=== PATIENT | male | born 1965 | race Two or more races ===

== ENCOUNTER → 2020-03-29 09:58 | Outpatient (BNVA) | payer BC, SELFPAY | PROVIDERS: PCP Internal Medicine; Referring Provider Internal Medicine; Visit Provider Internal Medicine | DX: I26.99 Other pulmonary embolism without acute cor pulmonale (principal); Z51.81 Encounter for therapeutic drug level monitoring; Z79.01 Long term (current) use of anticoagulants | CPT/HCPCS: 85610; 99211 ==

== ENCOUNTER → 2020-04-26 09:58 | Outpatient (BNVA) | payer BC, SELFPAY | PROVIDERS: PCP Internal Medicine; Visit Provider Internal Medicine | DX: I26.99 Other pulmonary embolism without acute cor pulmonale (principal); Z51.81 Encounter for therapeutic drug level monitoring; Z79.01 Long term (current) use of anticoagulants | CPT/HCPCS: 85610 ==

== ENCOUNTER → 2020-05-31 09:49 | Outpatient (BNVA) | payer BC, SELFPAY | PROVIDERS: PCP Internal Medicine; Visit Provider Internal Medicine | DX: I26.99 Other pulmonary embolism without acute cor pulmonale (principal); Z51.81 Encounter for therapeutic drug level monitoring; Z79.01 Long term (current) use of anticoagulants | CPT/HCPCS: 85610; 99211 ==

== ENCOUNTER → 2020-06-28 09:53 | Outpatient (BNVA) | payer BC, SELFPAY | PROVIDERS: PCP Internal Medicine; Visit Provider Internal Medicine | DX: I26.99 Other pulmonary embolism without acute cor pulmonale (principal); Z51.81 Encounter for therapeutic drug level monitoring; Z79.01 Long term (current) use of anticoagulants | CPT/HCPCS: 85610; 99211 ==

== ENCOUNTER → 2020-08-02 10:05 | Outpatient (BNVA) | payer BC, SELFPAY | PROVIDERS: PCP Internal Medicine; Visit Provider Internal Medicine | DX: I26.99 Other pulmonary embolism without acute cor pulmonale (principal); Z51.81 Encounter for therapeutic drug level monitoring; Z79.01 Long term (current) use of anticoagulants | CPT/HCPCS: 85610; 99211 ==

== ENCOUNTER → 2020-08-30 09:44 | Outpatient (BNVA) | payer BC, SELFPAY | PROVIDERS: PCP Internal Medicine; Visit Provider Internal Medicine | DX: I26.99 Other pulmonary embolism without acute cor pulmonale (principal); Z51.81 Encounter for therapeutic drug level monitoring; Z79.01 Long term (current) use of anticoagulants | CPT/HCPCS: 85610; 99211 ==

== ENCOUNTER → 2020-09-27 09:45 | Outpatient (BNVA) | payer BC, SELFPAY | PROVIDERS: PCP Internal Medicine; Visit Provider Internal Medicine | DX: I26.99 Other pulmonary embolism without acute cor pulmonale (principal); Z51.81 Encounter for therapeutic drug level monitoring; Z79.01 Long term (current) use of anticoagulants | CPT/HCPCS: 85610; 99211 ==

== ENCOUNTER → 2020-10-25 09:54 | Outpatient (BNVA) | payer BC, SELFPAY | PROVIDERS: PCP Internal Medicine; Visit Provider Internal Medicine | DX: I26.99 Other pulmonary embolism without acute cor pulmonale (principal); Z51.81 Encounter for therapeutic drug level monitoring; Z79.01 Long term (current) use of anticoagulants | CPT/HCPCS: 85610; 99211 ==

== ENCOUNTER → 2020-11-29 09:49 | Outpatient (BNVA) | payer BC, SELFPAY | PROVIDERS: PCP Internal Medicine; Visit Provider Internal Medicine | DX: I26.99 Other pulmonary embolism without acute cor pulmonale (principal); Z51.81 Encounter for therapeutic drug level monitoring; Z79.01 Long term (current) use of anticoagulants | CPT/HCPCS: 85610; 99211 ==

== ENCOUNTER → 2021-01-03 09:44 | Outpatient (BNVA) | payer BC, SELFPAY | PROVIDERS: PCP Internal Medicine; Visit Provider Internal Medicine | DX: I26.99 Other pulmonary embolism without acute cor pulmonale (principal); Z51.81 Encounter for therapeutic drug level monitoring; Z79.01 Long term (current) use of anticoagulants | CPT/HCPCS: 85610; 99211 ==

== ENCOUNTER → 2021-01-31 09:46 | Outpatient (BNVA) | payer BC, SELFPAY | PROVIDERS: PCP Internal Medicine; Visit Provider Internal Medicine | DX: I26.99 Other pulmonary embolism without acute cor pulmonale (principal); Z79.01 Long term (current) use of anticoagulants; Z51.81 Encounter for therapeutic drug level monitoring | CPT/HCPCS: 85610; 99211 ==

== ENCOUNTER → 2021-03-08 08:00 | Outpatient (BNVA) | payer BC, SELFPAY | PROVIDERS: PCP Internal Medicine; Visit Provider Internal Medicine | DX: I26.99 Other pulmonary embolism without acute cor pulmonale (principal); Z51.81 Encounter for therapeutic drug level monitoring; Z79.01 Long term (current) use of anticoagulants | CPT/HCPCS: 85610; 99211 ==

== ENCOUNTER → 2021-04-11 08:04 | Outpatient (BNVA) | payer BC, SELFPAY | PROVIDERS: PCP Internal Medicine; Visit Provider Internal Medicine | DX: I26.99 Other pulmonary embolism without acute cor pulmonale (principal); Z51.81 Encounter for therapeutic drug level monitoring; Z79.01 Long term (current) use of anticoagulants | CPT/HCPCS: 85610; 99211 ==

== ENCOUNTER → 2021-05-11 07:59 | Outpatient (BNVA) | payer BC, SELFPAY | PROVIDERS: PCP Internal Medicine; Visit Provider Internal Medicine | DX: I26.99 Other pulmonary embolism without acute cor pulmonale (principal); Z51.81 Encounter for therapeutic drug level monitoring; Z79.01 Long term (current) use of anticoagulants | CPT/HCPCS: 85610; 99211 ==

== ENCOUNTER → 2021-06-08 08:00 | Outpatient (BNVA) | payer BC, SELFPAY | PROVIDERS: PCP Internal Medicine; Visit Provider Internal Medicine | DX: I26.99 Other pulmonary embolism without acute cor pulmonale (principal); Z51.81 Encounter for therapeutic drug level monitoring; Z79.01 Long term (current) use of anticoagulants | CPT/HCPCS: 85610; 99211 ==

== ENCOUNTER → 2021-07-06 08:01 | Outpatient (BNVA) | payer BC, SELFPAY | PROVIDERS: PCP Internal Medicine; Visit Provider Internal Medicine | DX: I26.99 Other pulmonary embolism without acute cor pulmonale (principal); Z51.81 Encounter for therapeutic drug level monitoring; Z79.01 Long term (current) use of anticoagulants | CPT/HCPCS: 85610; 99211 ==

== ENCOUNTER → 2021-08-01 08:05 | Outpatient (BNVA) | payer BC, SELFPAY | PROVIDERS: PCP Internal Medicine; Visit Provider Internal Medicine | DX: I26.99 Other pulmonary embolism without acute cor pulmonale (principal); Z51.81 Encounter for therapeutic drug level monitoring; Z79.01 Long term (current) use of anticoagulants | CPT/HCPCS: 85610; 99211 ==

== ENCOUNTER → 2021-08-16 08:02 | Outpatient (BNVA) | payer BC, SELFPAY | PROVIDERS: PCP Internal Medicine; Visit Provider Internal Medicine | DX: I26.99 Other pulmonary embolism without acute cor pulmonale (principal); Z51.81 Encounter for therapeutic drug level monitoring; Z79.01 Long term (current) use of anticoagulants | CPT/HCPCS: 85610; 99211 ==

== ENCOUNTER → 2021-09-19 08:01 | Outpatient (BNVA) | payer BC, SELFPAY | PROVIDERS: PCP Internal Medicine; Visit Provider Internal Medicine | DX: I26.99 Other pulmonary embolism without acute cor pulmonale (principal); Z51.81 Encounter for therapeutic drug level monitoring; Z79.01 Long term (current) use of anticoagulants | CPT/HCPCS: 85610; 99211 ==

== ENCOUNTER → 2021-10-17 08:01 | Outpatient (BNVA) | payer BC, SELFPAY | PROVIDERS: PCP Internal Medicine; Visit Provider Internal Medicine | DX: I26.99 Other pulmonary embolism without acute cor pulmonale (principal); Z79.01 Long term (current) use of anticoagulants; Z51.81 Encounter for therapeutic drug level monitoring | CPT/HCPCS: 85610; 99211 ==

== ENCOUNTER → 2021-11-14 08:04 | Outpatient (BNVA) | payer BC, SELFPAY | PROVIDERS: PCP Internal Medicine; Visit Provider Internal Medicine | DX: I26.99 Other pulmonary embolism without acute cor pulmonale (principal); Z51.81 Encounter for therapeutic drug level monitoring; Z79.01 Long term (current) use of anticoagulants | CPT/HCPCS: 85610; 99211 ==

== ENCOUNTER → 2021-12-19 08:02 | Outpatient (BNVA) | payer BC, SELFPAY | PROVIDERS: PCP Internal Medicine; Visit Provider Internal Medicine | DX: I26.99 Other pulmonary embolism without acute cor pulmonale (principal); Z51.81 Encounter for therapeutic drug level monitoring; Z79.01 Long term (current) use of anticoagulants | CPT/HCPCS: 85610; 99211 ==

== ENCOUNTER → 2022-01-23 08:02 | Outpatient (BNVA) | payer BC, SELFPAY | PROVIDERS: PCP Internal Medicine; Visit Provider Internal Medicine | DX: I26.99 Other pulmonary embolism without acute cor pulmonale (principal); Z51.81 Encounter for therapeutic drug level monitoring; Z79.01 Long term (current) use of anticoagulants | CPT/HCPCS: 85610; 99211 ==

== ENCOUNTER → 2022-02-28 08:01 | Outpatient (BNVA) | payer BC, SELFPAY | PROVIDERS: PCP Internal Medicine; Visit Provider Internal Medicine | DX: I26.99 Other pulmonary embolism without acute cor pulmonale (principal); Z51.81 Encounter for therapeutic drug level monitoring; Z79.01 Long term (current) use of anticoagulants | CPT/HCPCS: 85610; 99211 ==

== ENCOUNTER → 2022-03-27 08:03 | Outpatient (BNVA) | payer BC, SELFPAY | PROVIDERS: PCP Internal Medicine; Visit Provider Internal Medicine | DX: I26.99 Other pulmonary embolism without acute cor pulmonale (principal); Z79.01 Long term (current) use of anticoagulants; Z51.81 Encounter for therapeutic drug level monitoring | CPT/HCPCS: 85610; 99211 ==

== ENCOUNTER → 2022-05-01 07:59 | Outpatient (BNVA) | payer BC, SELFPAY | PROVIDERS: PCP Internal Medicine; Visit Provider Internal Medicine | DX: I26.99 Other pulmonary embolism without acute cor pulmonale (principal); Z51.81 Encounter for therapeutic drug level monitoring; Z79.01 Long term (current) use of anticoagulants | CPT/HCPCS: 85610; 99211 ==

== ENCOUNTER → 2022-05-29 15:18 | Outpatient (BNVA) | payer BC, SELFPAY | PROVIDERS: PCP Internal Medicine; Visit Provider Internal Medicine | DX: I26.99 Other pulmonary embolism without acute cor pulmonale (principal); Z51.81 Encounter for therapeutic drug level monitoring; Z79.01 Long term (current) use of anticoagulants | CPT/HCPCS: 85610; 99211 ==

== ENCOUNTER → 2022-07-10 09:55 | Outpatient (BNVA) | payer BC, SELFPAY | PROVIDERS: PCP Internal Medicine; Visit Provider Internal Medicine | DX: I26.99 Other pulmonary embolism without acute cor pulmonale (principal); Z51.81 Encounter for therapeutic drug level monitoring; Z79.01 Long term (current) use of anticoagulants | CPT/HCPCS: 85610; 99211 ==

== ENCOUNTER → 2022-08-15 09:47 | Outpatient (BNVA) | payer BC, SELFPAY | PROVIDERS: PCP Internal Medicine; Visit Provider Internal Medicine | DX: I26.99 Other pulmonary embolism without acute cor pulmonale (principal); Z51.81 Encounter for therapeutic drug level monitoring; Z79.01 Long term (current) use of anticoagulants | CPT/HCPCS: 85610; 99211 ==

== ENCOUNTER 2022-10-16 07:44 | Outpatient (RCR) | payer BC, SELFPAY | END 2023-01-05 09:37 | disposition home or self-care (01) | LOC: HO.WCC 07:44 | PROVIDERS: PCP Internal Medicine; Visit Provider Physician Assistant | DX: L98.492 Non-pressure chronic ulcer of skin of other sites with fat layer exposed (principal); T81.31XA Disruption of external operation (surgical) wound, not elsewhere classified, initial encounter; E46 Unspecified protein-calorie malnutrition; Z93.2 Ileostomy status | CPT/HCPCS: 11042; 17250; 85610; 97602; 99212 ==

== ENCOUNTER 2022-10-20 10:21 | Outpatient (REF) | payer BC, SELFPAY ==
--- NOTE | ~2022-10-20 | FL_ITS ---
EXAMINATION: FL MODIFIED BARIUM SWALLOW CLINICAL INFORMATION: Dysphagia since recent intubation. COMPARISON: None available. TECHNIQUE: Modified barium swallow examination is performed with imaging in the lateral view and the presence of the speech pathologist using a variety of barium consistencies. The exam is performed with fluoroscopic evaluation, videofluoroscopy, and some fluoroscopic spot views. Fluoroscopy time: 1.3 minutes DAP: 0.536 Gycm2 Fluoroscopic spot images: 2 FINDINGS: There is good oral control with various consistencies. No nasopharyngeal penetration with swallowing. No laryngeal penetration or aspiration. There is some intermittent minor coating of the vallecular and piriform sinuses after swallowing with various consistencies which appears to clear on successive swallowing. No abnormal retention. See speech pathologist report for further assessment and recommendation. FL/FL barium swallow modified IMPRESSION: -No laryngeal penetration or aspiration. -See speech pathologist report for further assessment and recommendation.
--- NOTE | 2022-10-31 13:54 | MHC.SL.IMP ---
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 In late July, he had abdominal pain and eventually required emergency bowel resection. He was transferred to [facility] and had a prolonged ICU stay. He developed dysphonia and dysphagia after extubation and was given a laryngoplasty injection on 09/07. He continued to advanced his diet during admission and was discharged for recommendations of Minced and Moist Solids (L5) and Thin Liquids (L0). He reports that he has been trying some advanced solids in the interim and has not had any issues. [facility] Fall Risk Assessment Score: Oral Motor Exam Facial Symmetry: Symmetrical Oral Expression Ability: No Impairment Is patient able to manage secretions?: Yes Is patient able to produce volitional cough?: Yes Food and Liquid Trials: Oral Impairment: Lip Closure: 1=Interlabial escape; no progression to anterior tip Oral Impairment: Tongue Control During Bolus Hold: 0=Cohesive bolus between tongue to palatal seal Oral Impairment: Bolus Preparation/Mastication: 1=Slow prolonged chewing/mashing with complete re-collection Oral Impairment: Bolus Transport/Lingual Motion: 1= Delayed initiation of tongue motion Oral Impairment: Oral Residue: 1=Trace residue lining oral structures Oral Impairment:Initiation of Pharyngeal Swallow: 3=Bolus head in pyriforms Pharyngeal Impairment: Soft Palate Elevation: 0=No bolus between soft palate (SP)/pharyngeal wall (PW) Pharyngeal Impairment: Laryngeal Elevation: 1=Partial thyroid cartilage/arytenoids to epiglottic petiole movement Pharyngeal Impairment: Anterior Hyoid Excursion: 1=Partial anterior movement Pharyngeal Impairment: Epiglottic Movement: 1=Partial inversion Pharyngeal Impairment: Laryngeal Vestibular Closure:: 0=Complete: no air/contrast in laryngeal vestibule Pharyngeal Impairment: Pharyngeal Stripping Wave: 0=Present: complete Pharyngeal Impairment: Pharyngeal Contraction: Did not test Pharyngeal Impairment: Pharyngoesophageal Segment Openin=Partial distention/partial duration: partial obstruction of flow Pharyngeal Impairment: Tongue Base (TB) Retraction: 1=Trace column of contrast/air between TB and posterior PW Pharyngeal Impairment: Pharyngeal Residue: 1=Trace residue within or on pharyngeal structures Pharyngeal Impairment: Esophageal Clearance Upright Position: Did not test Impressions and Recommendations Clinical Observations: MBSImP Results: Lip closure for intraoral bolus containment resulted in interlabial escape, without progression to the anterior lip. Tongue control during bolus hold maintained a cohesive bolus held between tongue to palate seal. Bolus preparation and mastication resulted in slow, prolonged chewing/mashing but with complete re-collection. Bolus transport/lingual motion demonstrated delayed initiation of tongue motion. Oral residue was a trace, lining oral structures. Initiation of the pharyngeal swallow occurred when the bolus head was in the pyriform sinuses. Soft palate elevation resulted in no bolus between the soft palate and the pharyngeal wall. Laryngeal elevation was decreased, with partial superior movement of the thyroid cartilage/partial approximation of the arytenoids to the epiglottic petiole. Anterior hyoid excursion demonstrated partial anterior movement. Epiglottic movement resulted in partial inversion. Laryngeal vestibular closure was complete, as indicated by no air or contrast within the laryngeal vestibule at the height of the swallow. Pharyngeal stripping wave was present and complete. Pharyngeal contraction could not be determined due to logistical reasons not related to physiologic impairment. Pharyngoesophageal segment opening demonstrated partial distension/partial duration, with partial obstruction of bolus flow. Tongue base retraction allowed a trace column of contrast or air between the retracted tongue base and the posterior pharyngeal wall. Pharyngeal residue was a trace within or on pharyngeal structures. Esophageal clearance in the upright position could not be assessed due to logistical reasons not related to physiologic impairment. Oral Impairment Score: 5 Pharyngeal Impairment Score: 4 (absence of score, component 13) Esophageal Impairment Score: --- (absence of score, component 17) Laryngeal Penetration and Aspiration: Neither penetration nor aspiration was observed in today's study with Cookie, Pudding-thick, Thin. ASSESSMENT: Pt demonstrated improved swallowing efficiency on today's MBSS compared to previous studies conducted during his hospitalization. The largest area of concern at this time is pre-mature escape of the bolus to the pyriform sinuses prior to swallow initiation. Fortunately, he has many other strengths that he is able to compensate for this at this time. Pt is provided information about IDDSI Levels 6 (Soft&Bite-Sized) and 7 [id number], to help guide his decisions as to what solids he would like to return to. Pt is also concerned about the quality of his voice. He vocal quality is subjectively deemed to be with low amplitude and breath without pitch breaks, tremor, or hoarseness. He will benefit from an ENT referral to assess if there is more that can be done to improve his voice. I would also recommend Voice Therapy once a plan of care is established to help him gain maximal functional rewards. Liquid Intake Recommendation: Thin Liquid Intake Strategies: Avoid straws Dietary Recommendations: Pt provided with handouts on IDDSI Level 6 and Level 7 Medication Administration: Whole with Puree Please contact the pharmacy regarding appropriate crushable or liquid drug formulations that are available whenever modified delivery is recommended. Compensatory Strategies Recommended: Sitting Upright (90 deg) No Straw Small Bites and Sips Alternate Liquids/Solids Rate of Ingestion Change Avoid Specific Foods Supervision during eating and or drinking: Total Supervision (1:1) Recommended Treatments: Compens. Strategy Educat. Recommendation for Speech Therapy: Outpatient Speech Therapy Director Multimedia Clinician/Clinical Fellow: No Supervisory Statement: N/A Speech Language Pathologist: Ruben Simeon M.A., CCC-RN SUPPLEMENTAL
--- NOTE | 2022-11-10 10:36 | MHC.SPEECHCO ---
Pt contacted our office on 11/10 asking for an update. [employer]OTHER[employer] MANAGER recommended he see an ENT first, prior to beginning Voice Therapy. Pt stated he is seeing his PCP on 11/28/22 and will request at that time.
== END 2022-10-20 10:22 | disposition home or self-care (01) ==
LOC: HO.XRAY 10:21
PROVIDERS: PCP Internal Medicine; Visit Provider Physical Medicine & Rehabilitation
DX: K56.609 Unspecified intestinal obstruction, unspecified as to partial versus complete obstruction (principal); R13.12 Dysphagia, oropharyngeal phase; R49.0 Dysphonia
CPT/HCPCS: 74230; 92611

== ENCOUNTER → 2022-10-30 10:06 | Outpatient (BNVA) | payer BC, SELFPAY | PROVIDERS: PCP Internal Medicine; Visit Provider Internal Medicine | DX: I26.99 Other pulmonary embolism without acute cor pulmonale (principal); Z51.81 Encounter for therapeutic drug level monitoring; Z79.01 Long term (current) use of anticoagulants | CPT/HCPCS: 85610; 99211 ==

== ENCOUNTER → 2022-11-13 09:50 | Outpatient (BNVA) | payer BC, SELFPAY | PROVIDERS: PCP Internal Medicine; Visit Provider Internal Medicine | DX: Z51.81 Encounter for therapeutic drug level monitoring (principal); Z79.01 Long term (current) use of anticoagulants; I26.99 Other pulmonary embolism without acute cor pulmonale | CPT/HCPCS: 85610; 99211 ==

== ENCOUNTER → 2022-11-21 10:13 | Outpatient (BNVA) | payer BC, SELFPAY | PROVIDERS: PCP Internal Medicine; Visit Provider Internal Medicine | DX: I26.99 Other pulmonary embolism without acute cor pulmonale (principal); Z51.81 Encounter for therapeutic drug level monitoring; Z79.01 Long term (current) use of anticoagulants | CPT/HCPCS: 85610; 99211 ==

== ENCOUNTER → 2022-11-29 10:04 | Outpatient (BNVA) | payer BC, SELFPAY | PROVIDERS: PCP Internal Medicine; Visit Provider Internal Medicine | DX: Z51.81 Encounter for therapeutic drug level monitoring (principal); Z79.01 Long term (current) use of anticoagulants; I26.99 Other pulmonary embolism without acute cor pulmonale | CPT/HCPCS: 85610; 99211 ==

== ENCOUNTER → 2022-12-13 10:30 | Outpatient (BNVA) | payer BC, SELFPAY | PROVIDERS: PCP Internal Medicine; Visit Provider Internal Medicine | DX: I26.99 Other pulmonary embolism without acute cor pulmonale (principal); Z51.81 Encounter for therapeutic drug level monitoring; Z79.01 Long term (current) use of anticoagulants | CPT/HCPCS: 85610; 99211 ==

== ENCOUNTER 2023-01-01 10:06 | Outpatient (AMB) | payer BC, SELFPAY ==
--- NOTE | 2023-01-01 10:17 | MHC.OFFVISCO ---
Intake Intake Visit Reasons: Anticoagulation Allergies No Known Allergies Allergy (Verified 01/01/23 10:14) Medication List - Last Reconciled 01/01/23 by Leslie Torres RN ferrous sulfate (Iron (ferrous sulfate)) 325 mg PO DAILY multivitamin 1 tab PO DAILY vitamin B complex (B Complex-Vitamin B12 tablet) 1 tab PO DAILY warfarin 5 mg See Protocol PO DAILY Nursing Note INR: 2.8- in therapeutic range Medications and supplements reviewed No changes in health, diet, medications, or supplements, Denies any signs and symptoms of bleeding or bruising or clotting. Bleeding, bruising, clotting discussed Nutritional guidance given Dose: 7.5mg x 7 F/U INR: 3 weeks Patient verbalizes understanding of instructions given Coding Level of Care Code Est Patient Level 1 Diagnoses Current use of anticoagulant therapy Z79.01 Results AMB INR Fingerstick AMB INR Fingerstick 2.8 Last Edit by Leslie Torres RN on 01/01/23 10:18 Assessment & Plan Assessment & Plan (1) Current use of anticoagulant therapy: Code(s): Z79.01 - [facility] (current) use of anticoagulants Category: Medical
[2023-01-02 15:40] LABS: Prothrombin Time Whole Bld POC 33.1 sec (11.1-13.5); ~PT, ~INR - Anti Coag Clinic 2.8 (0.9-1.1)
== END 2023-01-01 10:22 | disposition home or self-care (01) ==
LOC: HO.ACS 10:06
PROVIDERS: PCP Internal Medicine; Visit Provider Internal Medicine
DX: Z79.01 Long term (current) use of anticoagulants (principal)

== ENCOUNTER → 2023-01-01 10:06 | Outpatient (BNVA) | payer BC, SELFPAY | PROVIDERS: PCP Internal Medicine; Visit Provider Internal Medicine | DX: Z51.81 Encounter for therapeutic drug level monitoring (principal); Z79.01 Long term (current) use of anticoagulants; I26.99 Other pulmonary embolism without acute cor pulmonale | CPT/HCPCS: 85610; 99211 ==

== ENCOUNTER 2023-01-22 10:14 | Outpatient (AMB) | payer BC, SELFPAY ==
--- NOTE | 2023-01-22 10:19 | MHC.OFFVISCO ---
Intake Intake Visit Reasons: Anticoagulation Allergies No Known Allergies Allergy (Verified 01/22/23 10:15) Medication List - Last Reconciled 01/22/23 by Leslie Torres RN ferrous sulfate (Iron (ferrous sulfate)) 325 mg PO DAILY vitamin B complex (B Complex-Vitamin B12 tablet) 1 tab PO DAILY warfarin 5 mg See Protocol PO DAILY Nursing Note INR: 2.3- in therapeutic range Medications and supplements reviewed - no longer taking mvi, taking vit d 2000u daily No changes in health, diet, medications, or supplements, Denies any signs and symptoms of bleeding or bruising or clotting. Bleeding, bruising, clotting discussed Nutritional guidance given Dose: 7.5mg x 7 F/U INR: 4 weeks Patient verbalizes understanding of instructions given Coding Level of Care Code Est Patient Level 1 Diagnoses Current use of anticoagulant therapy Z79.01 Assessment & Plan Assessment & Plan (1) Current use of anticoagulant therapy: Code(s): Z79.01 - longterm (current) use of anticoagulants Category: Medical Medications: New cholecalciferol (vitamin D3) 50 mcg PO DAILY
[2023-01-22 10:20] LABS: ~PT, ~INR - Anti Coag Clinic 2.3 (0.9-1.1)
== END 2023-01-22 10:25 | disposition home or self-care (01) ==
LOC: HO.ACS 10:14
PROVIDERS: PCP Internal Medicine; Visit Provider Internal Medicine
DX: Z79.01 Long term (current) use of anticoagulants (principal)

== ENCOUNTER → 2023-01-22 10:14 | Outpatient (BNVA) | payer BC, SELFPAY | PROVIDERS: PCP Internal Medicine; Visit Provider Internal Medicine | DX: Z79.01 Long term (current) use of anticoagulants (principal); I26.99 Other pulmonary embolism without acute cor pulmonale | CPT/HCPCS: 85610; 99211 ==

== ENCOUNTER 2023-02-19 10:28 | Outpatient (AMB) | payer BC, SELFPAY ==
--- NOTE | 2023-02-19 10:36 | MHC.OFFVISCO ---
Intake Intake Visit Reasons: Anticoagulation Allergies No Known Allergies Allergy (Verified 02/19/23 10:32) Medication List - Last Reconciled 02/19/23 by Leslie Torres RN cholecalciferol (vitamin D3) 50 mcg PO DAILY ferrous sulfate (Iron (ferrous sulfate)) 325 mg PO DAILY vitamin B complex (B Complex-Vitamin B12 tablet) 1 tab PO DAILY warfarin 5 mg See Protocol PO DAILY Nursing Note INR: 2.8- in therapeutic range Medications and supplements reviewed No changes in health, diet, medications, or supplements, Denies any signs and symptoms of bleeding or bruising or clotting. 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
[2023-02-19 10:37] LABS: Prothrombin Time Whole Bld POC 33.6 sec (11.1-13.5); ~PT, ~INR - Anti Coag Clinic 2.8 (0.9-1.1)
== END 2023-02-19 10:40 | disposition home or self-care (01) ==
LOC: HO.ACS 10:28
PROVIDERS: PCP Internal Medicine; Visit Provider Internal Medicine
DX: Z79.01 Long term (current) use of anticoagulants (principal)

== ENCOUNTER → 2023-02-19 10:28 | Outpatient (BNVA) | payer BC, SELFPAY | PROVIDERS: PCP Internal Medicine; Visit Provider Internal Medicine | DX: I26.99 Other pulmonary embolism without acute cor pulmonale (principal); Z51.81 Encounter for therapeutic drug level monitoring; Z79.01 Long term (current) use of anticoagulants | CPT/HCPCS: 85610; 99211 ==

== ENCOUNTER 2023-03-19 10:14 | Outpatient (AMB) | payer BC, SELFPAY ==
--- NOTE | 2023-03-19 10:36 | MHC.OFFVISCO ---
Intake Intake Visit Reasons: Anticoagulation Allergies No Known Allergies Allergy (Verified 03/19/23 10:32) Medication List - Last Reconciled 03/19/23 by Leslie Torres, RN cholecalciferol (vitamin D3) 50 mcg PO DAILY ferrous sulfate (Iron (ferrous sulfate)) 325 mg PO DAILY vitamin B complex (B Complex-Vitamin B12 tablet) 1 tab PO DAILY warfarin 5 mg See Protocol PO DAILY Nursing Note INR 3.4- out of therapeutic range Medications and supplements reviewed Patient status: no c.o offered, had beers recently Medications or supplements: no changes Diet: same Denies any signs and symptoms of bleeding or clotting or unusual bruising Bleeding, bruising, clotting discussed Nutritional guidance given: eat greens to lower inr Dose: already took warfarin today, take 5mg tomm then cont 7.5mg x 7 F/U INR Date : 2 weeks? recommended, pt req 3 weeks Patient verbalizing understanding of instructions given. 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
[2023-03-19 10:37] LABS: Prothrombin Time Whole Bld POC 41.3 sec (11.1-13.5); ~PT, ~INR - Anti Coag Clinic 3.4 (0.9-1.1)
== END 2023-03-19 10:42 | disposition home or self-care (01) ==
LOC: HO.ACS 10:14
PROVIDERS: PCP Internal Medicine; Visit Provider Internal Medicine
DX: Z79.01 Long term (current) use of anticoagulants (principal)

== ENCOUNTER → 2023-03-19 10:14 | Outpatient (BNVA) | payer BC, SELFPAY | PROVIDERS: PCP Internal Medicine; Visit Provider Internal Medicine | DX: I26.99 Other pulmonary embolism without acute cor pulmonale (principal); Z51.81 Encounter for therapeutic drug level monitoring; Z79.01 Long term (current) use of anticoagulants | CPT/HCPCS: 85610; 99211 ==

== ENCOUNTER 2023-04-09 10:17 | Outpatient (AMB) | payer BC, SELFPAY ==
[2023-04-09 10:30] LABS: Prothrombin Time Whole Bld POC 45.5 sec (11.1-13.5); ~PT, ~INR - Anti Coag Clinic 3.8 (0.9-1.1)
--- NOTE | 2023-04-09 10:44 | MHC.OFFVISCO ---
Intake Intake Visit Reasons: Anticoagulation Allergies No Known Allergies Allergy (Verified 04/09/23 10:24) Medication List - Last Reconciled 04/09/23 by Marybeth Bartlett, RN cholecalciferol (vitamin D3) 50 mcg PO DAILY ferrous sulfate (Iron (ferrous sulfate)) 325 mg PO DAILY vitamin B complex (B Complex-Vitamin B12 tablet) 1 tab PO DAILY warfarin 5 mg See Protocol PO DAILY Nursing Note INR 3.8 out of therapeutic range Medications and supplements reviewed Patient status: PT HAS NOT HAD USUAL AMT OF WEEKLY GREENS, WALKING DAILY, FEELING WELL, Medications or supplements: NO CHANGES Diet: GOOD Denies any signs and symptoms of bleeding or clotting or unusual bruising Bleeding, bruising, clotting discussed Nutritional guidance given: COOKED GREENS PROVIDE MORE ABSORBABLE VIT K, TO EAT COOKED GREENS TODAY AND WEEKLY Dose: ALREADY TOOK TODAY'S DOSE, DECREASE WEEKLY DOSE 5MG X 1 DAY/ 7.5MG X 6 DAYS F/U INR Date : ??3 WEEKS PER PT REQUEST, ENC IF ANY UNUSUAL BLEEDING OR BRUISING TO CALL [facility] FOR A SOONER APPT, PT AGREED Patient verbalizing understanding of instructions given. 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
== END 2023-04-09 10:49 | disposition home or self-care (01) ==
LOC: HO.ACS 10:17
PROVIDERS: PCP Internal Medicine; Visit Provider Internal Medicine
DX: Z79.01 Long term (current) use of anticoagulants (principal)

== ENCOUNTER → 2023-04-09 10:17 | Outpatient (BNVA) | payer BC, SELFPAY | PROVIDERS: PCP Internal Medicine; Visit Provider Internal Medicine | DX: I26.99 Other pulmonary embolism without acute cor pulmonale (principal); Z51.81 Encounter for therapeutic drug level monitoring; Z79.01 Long term (current) use of anticoagulants | CPT/HCPCS: 85610; 99211 ==

== ENCOUNTER 2023-05-07 10:13 | Outpatient (AMB) | payer BC, SELFPAY ==
--- NOTE | 2023-05-07 10:54 | MHC.OFFVISCO ---
Intake Intake Visit Reasons: Anticoagulation Allergies No Known Allergies Allergy (Verified 05/07/23 10:40) Medication List - Last Reconciled 05/07/23 by Marybeth Bartlett RN cholecalciferol (vitamin D3) 50 mcg PO DAILY ferrous sulfate (Iron (ferrous sulfate)) 325 mg PO DAILY vitamin B complex (B Complex-Vitamin B12 tablet) 1 tab PO DAILY warfarin 5 mg See Protocol PO DAILY Nursing Note INR: 3.4 OUT OF therapeutic range Medications and supplements reviewed * START TO DECREASED DOSE TOWARDS PREVIOUS DOSE PRIOR TO ILLNESS No changes in health, diet, medications, or supplements, Denies any signs and symptoms of bleeding or bruising or clotting. Bleeding, bruising, clotting discussed Nutritional guidance given- REVIEW FOOD LIST WEEKLY Dose: DECREASE TO 5MG X 2 DAYS/ 7.5MG X 5 DAYS F/U INR: 06/01/23 Patient verbalizes understanding of instructions given Coding Level of Care Code Est Patient Level 1 Diagnoses Current use of anticoagulant therapy Z79.01 Results AMB INR Fingerstick AMB INR Fingerstick 3.4 Last Edit by Marybeth Bartlett RN on 05/07/23 10:49 MANUAL ENTRY Assessment & Plan Assessment & Plan (1) Current use of anticoagulant therapy: Code(s): Z79.01 - snf (current) use of anticoagulants Category: Medical
[2023-05-07 11:47] LABS: Prothrombin Time Whole Bld POC 40.9 sec (11.1-13.5); ~PT, ~INR - Anti Coag Clinic 3.4 (0.9-1.1)
== END 2023-05-07 10:57 | disposition home or self-care (01) ==
LOC: HO.ACS 10:13
PROVIDERS: PCP Internal Medicine; Visit Provider Internal Medicine
DX: Z79.01 Long term (current) use of anticoagulants (principal)

== ENCOUNTER → 2023-05-07 10:13 | Outpatient (BNVA) | payer BC, SELFPAY | PROVIDERS: PCP Internal Medicine; Visit Provider Internal Medicine | DX: I26.99 Other pulmonary embolism without acute cor pulmonale (principal); Z51.81 Encounter for therapeutic drug level monitoring; Z79.01 Long term (current) use of anticoagulants | CPT/HCPCS: 85610; 99211 ==

== ENCOUNTER 2023-05-28 10:11 | Outpatient (AMB) | payer BC, SELFPAY ==
--- NOTE | 2023-05-28 10:45 | MHC.OFFVISCO ---
Intake Intake Visit Reasons: Anticoagulation Allergies No Known Allergies Allergy (Verified 05/28/23 10:31) Medication List - Last Reconciled 05/28/23 by Marybeth Bartlett RN cholecalciferol (vitamin D3) 50 mcg PO DAILY ferrous sulfate (Iron (ferrous sulfate)) 325 mg PO DAILY vitamin B complex (B Complex-Vitamin B12 tablet) 1 tab PO DAILY warfarin 5 mg See Protocol PO DAILY Nursing Note INR: 2.4 in therapeutic range Medications and supplements reviewed No changes in health, diet, medications, or supplements, Denies any signs and symptoms of bleeding or bruising or clotting. Bleeding, bruising, clotting discussed Nutritional guidance given Dose: 5MG X 2 DAYS/ 7.5MG X 5 DAYS F/U INR: 1 MONTH Patient verbalizes understanding of instructions given Coding Level of Care Code Est Patient Level 1 Diagnoses Current use of anticoagulant therapy Z79.01 Results AMB INR Fingerstick AMB INR Fingerstick 2.4 Last Edit by Marybeth Bartlett RN on 05/28/23 10:42 MANUAL ENTRY Assessment & Plan Assessment & Plan (1) Current use of anticoagulant therapy: Code(s): Z79.01 - snf (current) use of anticoagulants Category: Medical
[2023-05-28 10:46] LABS: Prothrombin Time Whole Bld POC 28.4 sec (11.1-13.5); ~PT, ~INR - Anti Coag Clinic 2.4 (0.9-1.1)
== END 2023-05-28 10:47 | disposition home or self-care (01) ==
LOC: HO.ACS 10:11
PROVIDERS: PCP Internal Medicine; Visit Provider Internal Medicine
DX: Z79.01 Long term (current) use of anticoagulants (principal)

== ENCOUNTER → 2023-05-28 10:11 | Outpatient (BNVA) | payer BC, SELFPAY | PROVIDERS: PCP Internal Medicine; Visit Provider Internal Medicine | DX: I26.99 Other pulmonary embolism without acute cor pulmonale (principal); Z51.81 Encounter for therapeutic drug level monitoring; Z79.01 Long term (current) use of anticoagulants | CPT/HCPCS: 85610; 99211 ==

== ENCOUNTER 2023-07-02 10:21 | Outpatient (AMB) | payer BC, SELFPAY ==
--- NOTE | 2023-07-02 10:58 | MHC.OFFVISCO ---
Intake Intake Visit Reasons: Anticoagulation Allergies No Known Allergies Allergy (Verified 05/28/23 10:31) Nursing Note INR: 2.7 in therapeutic range Medications and supplements reviewed No changes in health, diet, medications, or supplements, Denies any signs and symptoms of bleeding or bruising or clotting. Bleeding, bruising, clotting discussed Nutritional guidance given Dose: 5mg x 2 days/ 7.5mg x 5 days F/U INR: 1 month Patient verbalizes understanding of instructions given Coding Level of Care Code Est Patient Level 1 Diagnoses Current use of anticoagulant therapy Z79.01 Assessment & Plan Assessment & Plan (1) Current use of anticoagulant therapy: Code(s): Z79.01 - halfway (current) use of anticoagulants Category: Medical
== END 2023-07-02 10:59 | disposition home or self-care (01) ==
LOC: HO.ACS 10:21
PROVIDERS: PCP Internal Medicine; Visit Provider Internal Medicine
DX: Z79.01 Long term (current) use of anticoagulants (principal)

== ENCOUNTER → 2023-07-02 10:21 | Outpatient (BNVA) | payer BC, SELFPAY | PROVIDERS: PCP Internal Medicine; Visit Provider Internal Medicine | DX: I26.99 Other pulmonary embolism without acute cor pulmonale (principal); Z51.81 Encounter for therapeutic drug level monitoring; Z79.01 Long term (current) use of anticoagulants | CPT/HCPCS: 85610; 99211 ==

== ENCOUNTER 2023-07-31 10:01 | Outpatient (AMB) | payer BC, SELFPAY ==
[2023-07-31 10:15] LABS: Prothrombin Time Whole Bld POC 23.7 sec (11.1-13.5)
--- NOTE | 2023-07-31 10:21 | MHC.OFFVISCO ---
Intake Intake Visit Reasons: Anticoagulation Allergies No Known Allergies Allergy (Verified 07/31/23 10:10) Medication List - Last Reconciled 07/31/23 by Elba Foote, RN cholecalciferol (vitamin D3) 50 mcg PO DAILY ferrous sulfate (Iron (ferrous sulfate)) 325 mg PO DAILY vitamin B complex (B Complex-Vitamin B12 tablet) 1 tab PO DAILY warfarin 5 mg See Protocol PO DAILY Nursing Note INR: 2.0 in therapeutic range Medications and supplements reviewed Started on metamucil No changes in health, diet, or supplements, Denies any signs and symptoms of bleeding or bruising or clotting. 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
== END 2023-07-31 10:26 | disposition home or self-care (01) ==
LOC: HO.ACS 10:01
PROVIDERS: PCP Internal Medicine; Visit Provider Internal Medicine
DX: Z79.01 Long term (current) use of anticoagulants (principal)

== ENCOUNTER → 2023-07-31 10:01 | Outpatient (BNVA) | payer BC, SELFPAY | PROVIDERS: PCP Internal Medicine; Visit Provider Internal Medicine | DX: I26.99 Other pulmonary embolism without acute cor pulmonale (principal); Z51.81 Encounter for therapeutic drug level monitoring; Z79.01 Long term (current) use of anticoagulants | CPT/HCPCS: 85610; 99211 ==

== ENCOUNTER 2023-09-10 09:36 | Outpatient (AMB) | payer BC, SELFPAY ==
--- NOTE | 2023-09-10 09:44 | MHC.OFFVISCO ---
Intake Intake Visit Reasons: Anticoagulation Allergies No Known Allergies Allergy (Verified 09/10/23 09:38) Medication List - Last Reconciled 09/10/23 by Leslie Torres RN cholecalciferol (vitamin D3) 50 mcg PO DAILY ferrous sulfate (Iron (ferrous sulfate)) 325 mg PO DAILY psyllium husk (Metamucil) 2 tsp PO DAILY vitamin B complex (B Complex-Vitamin B12 tablet) 1 tab PO DAILY warfarin 5 mg See Protocol PO DAILY Nursing Note INR 3.7-?? out of therapeutic range of 2-3 Medications and supplements reviewed Patient status: no c.o offered Medications or supplements: no changes Diet: same, had more reds Denies any signs and symptoms of bleeding or clotting or unusual bruising Bleeding, bruising, clotting discussed Nutritional guidance given: eat greens to lower Dose: pt states already took warfarin today, reduce tomm to 2.5mg then cont reg , 5mg x 2, 7.5mg x 5 F/U INR Date : 2 week f/u recommended, pt ref earlier appt than 3 weeks? Patient verbalizing understanding of instructions given. 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
[2023-09-10 09:46] LABS: Prothrombin Time Whole Bld POC 44.3 sec (11.1-13.5); ~PT, ~INR - Anti Coag Clinic 3.7 (0.9-1.1)
== END 2023-09-10 09:51 | disposition home or self-care (01) ==
LOC: HO.ACS 09:36
PROVIDERS: PCP Internal Medicine; Visit Provider Internal Medicine
DX: Z79.01 Long term (current) use of anticoagulants (principal)

== ENCOUNTER → 2023-09-10 09:36 | Outpatient (BNVA) | payer BC, SELFPAY | PROVIDERS: PCP Internal Medicine; Visit Provider Internal Medicine | DX: I26.99 Other pulmonary embolism without acute cor pulmonale (principal); Z51.81 Encounter for therapeutic drug level monitoring; Z79.01 Long term (current) use of anticoagulants | CPT/HCPCS: 85610; 99211 ==

== ENCOUNTER 2023-10-01 09:41 | Outpatient (AMB) | payer BC, SELFPAY ==
[2023-10-01 09:53] LABS: Prothrombin Time Whole Bld POC 33.9 sec (11.1-13.5); ~PT, ~INR - Anti Coag Clinic 2.8 (0.9-1.1)
--- NOTE | 2023-10-01 09:56 | MHC.OFFVISCO ---
Intake Intake Visit Reasons: Anticoagulation Allergies No Known Allergies Allergy (Verified 10/01/23 09:47) Medication List - Last Reconciled 10/01/23 by Elba Siu, RN cholecalciferol (vitamin D3) 50 mcg PO DAILY ferrous sulfate (Iron (ferrous sulfate)) 325 mg PO DAILY psyllium husk (Metamucil) 2 tsp PO DAILY vitamin B complex (B Complex-Vitamin B12 tablet) 1 tab PO DAILY warfarin 5 mg See Protocol PO DAILY Nursing Note Amb to [facility] feeling well, voice is hoarse, sts from ICU stay last year, sts he went through therapy but it didn't work Medications and supplements reviewed No other changes in health, diet, medications, or supplements Denies any unusual signs and symptoms of bruising, bleeding Denies any new Chest pain, SOB, or clotting INR: 2.8 in therapeutic range Nutritional guidance given: balance greens and reds in diet Dose: continue usual dosing;5mg x 2 days and 7.5mg x 5 days F/U INR: 4 weeks, sts he will be going to 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
== END 2023-10-01 10:07 | disposition home or self-care (01) ==
LOC: HO.ACS 09:41
PROVIDERS: PCP Internal Medicine; Visit Provider Internal Medicine
DX: Z79.01 Long term (current) use of anticoagulants (principal)

== ENCOUNTER → 2023-10-01 09:41 | Outpatient (BNVA) | payer BC, SELFPAY | PROVIDERS: PCP Internal Medicine; Visit Provider Internal Medicine | DX: I26.99 Other pulmonary embolism without acute cor pulmonale (principal); Z51.81 Encounter for therapeutic drug level monitoring; Z79.01 Long term (current) use of anticoagulants | CPT/HCPCS: 85610; 99211 ==

== ENCOUNTER 2023-11-05 10:00 | Outpatient (AMB) | payer BC, SELFPAY ==
--- NOTE | 2023-11-05 10:05 | MHC.OFFVISCO ---
Intake Intake Visit Reasons: Anticoagulation Allergies No Known Allergies Allergy (Verified 11/05/23 10:00) Medication List - Last Reconciled 11/05/23 by Leslie Torres RN cholecalciferol (vitamin D3) 50 mcg PO DAILY ferrous sulfate (Iron (ferrous sulfate)) 325 mg PO DAILY psyllium husk (Metamucil) 2 tsp PO DAILY vitamin B complex (B Complex-Vitamin B12 tablet) 1 tab PO DAILY warfarin 5 mg See Protocol PO DAILY Nursing Note INR 3.5-? out of therapeutic range of 2-3 Medications and supplements reviewed Patient status: no c.o Medications or supplements: no changes Diet: same, had more reds in diet Denies any signs and symptoms of bleeding or clotting or unusual bruising Bleeding, bruising, clotting discussed Nutritional guidance given: eat greens today to lower, no reds for 2 days Dose: 2.5mg today then 5mg x 2, 7.5mg x 5 F/U INR Date : pt req 3 weeks?? Patient verbalizing understanding of instructions given. 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
[2023-11-05 10:06] LABS: Prothrombin Time Whole Bld POC 41.8 sec (11.1-13.5); ~PT, ~INR - Anti Coag Clinic 3.5 (0.9-1.1)
== END 2023-11-05 10:12 | disposition home or self-care (01) ==
LOC: HO.ACS 10:00
PROVIDERS: PCP Internal Medicine; Visit Provider Internal Medicine
DX: Z79.01 Long term (current) use of anticoagulants (principal)

== ENCOUNTER → 2023-11-05 10:00 | Outpatient (BNVA) | payer BC, SELFPAY | PROVIDERS: PCP Internal Medicine; Visit Provider Internal Medicine | DX: I26.99 Other pulmonary embolism without acute cor pulmonale (principal); Z51.81 Encounter for therapeutic drug level monitoring; Z79.01 Long term (current) use of anticoagulants | CPT/HCPCS: 85610; 99211 ==

== ENCOUNTER 2023-11-26 09:47 | Outpatient (AMB) | payer BC, SELFPAY ==
[2023-11-26 09:52] LABS: Prothrombin Time Whole Bld POC 41.5 sec (11.1-13.5); ~PT, ~INR - Anti Coag Clinic 3.5 (0.9-1.1)
--- NOTE | 2023-11-26 10:02 | MHC.OFFVISCO ---
Intake Intake Visit Reasons: Anticoagulation Allergies No Known Allergies Allergy (Verified 11/26/23 09:47) Medication List - Last Reconciled 11/26/23 by Marybeth Bartlett RN cholecalciferol (vitamin D3) 50 mcg PO DAILY ferrous sulfate (Iron (ferrous sulfate)) 325 mg PO DAILY psyllium husk (Metamucil) 2 tsp PO DAILY vitamin B complex (B Complex-Vitamin B12 tablet) 1 tab PO DAILY warfarin 5 mg See Protocol PO DAILY Nursing Note INR 3.5 out of therapeutic range Medications and supplements reviewed Patient status: USE TO TAKE BOOST POST SURGERY - NO LONGER TAKES BOOST Medications or supplements: NO CHANGES Diet: GOOD, REVIEW FOOD LIST WEEKLY Denies any signs and symptoms of bleeding or clotting or unusual bruising Bleeding, bruising, clotting discussed Nutritional guidance given: GREENS TODAY Dose: 2.5MG TODAY THEN RESUME 5MG X 3 DAYS/ 7.5MG X 4 DAYS F/U INR Date : 12/24/23 THEN LEAVING FOR [facility] X 1 MONTH?? Patient verbalizing understanding of instructions given. Coding Level of Care Code Est Patient Level 1 Diagnoses Current use of anticoagulant therapy Z79.01 Results AMB INR Fingerstick AMB INR Fingerstick 3.5 Last Edit by Marybeth Bartlett RN on 11/26/23 09:58 INTERFACING [facility] SERVICE Assessment & Plan Assessment & Plan (1) Current use of anticoagulant therapy: Code(s): Z79.01 - snf (current) use of anticoagulants Category: Medical
== END 2023-11-26 10:04 | disposition home or self-care (01) ==
LOC: HO.ACS 09:47
PROVIDERS: PCP Internal Medicine; Visit Provider Internal Medicine
DX: Z79.01 Long term (current) use of anticoagulants (principal)

== ENCOUNTER → 2023-11-26 09:47 | Outpatient (BNVA) | payer BC, SELFPAY | PROVIDERS: PCP Internal Medicine; Visit Provider Internal Medicine | DX: I26.99 Other pulmonary embolism without acute cor pulmonale (principal); Z51.81 Encounter for therapeutic drug level monitoring; Z79.01 Long term (current) use of anticoagulants | CPT/HCPCS: 85610; 99211 ==

== ENCOUNTER 2023-12-24 09:37 | Outpatient (AMB) | payer BC, SELFPAY ==
--- NOTE | 2023-12-24 09:51 | MHC.OFFVISCO ---
Intake Intake Visit Reasons: Anticoagulation Allergies No Known Allergies Allergy (Verified 12/24/23 09:48) Medication List - Last Reconciled 12/24/23 by Leslie Torres RN cholecalciferol (vitamin D3) 50 mcg PO DAILY ferrous sulfate (Iron (ferrous sulfate)) 325 mg PO DAILY psyllium husk (Metamucil) 2 tsp PO DAILY vitamin B complex (B Complex-Vitamin B12 tablet) 1 tab PO DAILY warfarin 5 mg See Protocol PO DAILY Nursing Note INR: 2.5- in therapeutic range of 2-3 Medications and supplements reviewed- no changes No changes in health, diet, medications, or supplements, Denies any signs and symptoms of bleeding or bruising or clotting. Bleeding, bruising, clotting discussed Nutritional guidance given Dose: 5mg x 3, 75mg x 4 F/U INR: pt req 01/28/24 Patient verbalizes understanding of instructions given pt traveling to [facility] in december Coding Level of Care Code Est Patient Level 1 Diagnoses Current use of anticoagulant therapy Z79.01 Results AMB INR Fingerstick AMB INR Fingerstick 2.5 Last Edit by Leslie Torres RN on 12/24/23 09:54 Assessment & Plan Assessment & Plan (1) Current use of anticoagulant therapy: Code(s): Z79.01 - senior care (current) use of anticoagulants Category: Medical
[2023-12-25 08:02] LABS: Prothrombin Time Whole Bld POC 29.5 sec (11.1-13.5); ~PT, ~INR - Anti Coag Clinic 2.5 (0.9-1.1)
== END 2023-12-24 09:58 | disposition home or self-care (01) ==
LOC: HO.ACS 09:37
PROVIDERS: PCP Internal Medicine; Visit Provider Internal Medicine
DX: Z79.01 Long term (current) use of anticoagulants (principal)

== ENCOUNTER → 2023-12-24 09:37 | Outpatient (BNVA) | payer BC, SELFPAY | PROVIDERS: PCP Internal Medicine; Visit Provider Internal Medicine | DX: I26.99 Other pulmonary embolism without acute cor pulmonale (principal); Z51.81 Encounter for therapeutic drug level monitoring; Z79.01 Long term (current) use of anticoagulants | CPT/HCPCS: 85610; 99211 ==

== ENCOUNTER 2024-01-29 09:44 | Outpatient (AMB) | payer BC, SELFPAY ==
--- NOTE | 2024-01-29 09:59 | MHC.OFFVISCO ---
Intake Intake Visit Reasons: Anticoagulation Allergies No Known Allergies Allergy (Verified 01/29/24 09:55) Medication List - Last Reconciled 01/29/24 by Leslie Torres RN cholecalciferol (vitamin D3) 50 mcg PO DAILY ferrous sulfate (Iron (ferrous sulfate)) 325 mg PO DAILY psyllium husk (Metamucil) 2 tsp PO DAILY vitamin B complex (B Complex-Vitamin B12 tablet) 1 tab PO DAILY warfarin 5 mg See Protocol PO DAILY Nursing Note INR: 2.4- in therapeutic range 2-3 Medications and supplements reviewed No changes in health, diet, medications, or supplements, Denies any signs and symptoms of bleeding or bruising or clotting. Bleeding, bruising, clotting discussed Nutritional guidance given Dose: 5mg x 3, 7.5mg x 4 F/U INR: 4 weeks Patient verbalizes understanding of instructions given Questionnaires HAS-BLED Does the patient had uncontrolled Hypertension?: No Does the patient have renal disease?: No Does the patient have liver disease?: No Does the patient have a history of stroke?: No Has the patient had major bleeding or predisposition to bleeding?: No Does the patient have labile INRs?: No Is the patient over 65 years of age?: No Is the patient on medications that gives them a predisposition to bleeding?: Yes Does the patient use alcohol?: Yes HAS-BLED Score: 2 CHADSVASC Age: <65 Gender: Male Does the patient have a history of CHF?: No Does the patient have a history of Hypertension?: No Does the patient have a history of Stroke/TIA/Thromboembolism?: Yes Does the patient have a history of Vascular Disease (prior NE, PAD or aortic plaque)?: No Does the patient have a history of Diabetes?: No CHADS VACS Score: 2 Marisa Prediction Score Rsk VTE Active Cancer: No Previous VTE, excluding superficial vein thrombosis: Yes Reduced mobility: No Already known Thrombophilic Condition: Yes With-in last month Trauma and/or Surgery: No Elderly 70 year or older: No Heart and/or Respiratory Failure: No Acute Myocardial infarction and/or Ischemic Stroke: No Acute Infection and/or Rheumatologic Disorder: No Obesity (BMI 30 or greater): No Ongoing Hormonal Treatment: No Score: 6 Marisa Score less than 4; Low Risk of VTE Marisa Score 4 or greater; High Risk of VTE Coding Level of Care Code Est Patient Level 1 Diagnoses Current use of anticoagulant therapy Z79.01 Assessment & Plan Assessment & Plan (1) Current use of anticoagulant therapy: Code(s): 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
[2024-01-29 10:00] LABS: Prothrombin Time Whole Bld POC 28.8 sec (11.1-13.5); ~PT, ~INR - Anti Coag Clinic 2.4 (0.9-1.1)
== END 2024-01-29 10:08 | disposition home or self-care (01) ==
LOC: HO.ACS 09:44
PROVIDERS: PCP Internal Medicine; Visit Provider Internal Medicine
DX: Z79.01 Long term (current) use of anticoagulants (principal)

== ENCOUNTER → 2024-01-29 09:44 | Outpatient (BNVA) | payer BC, SELFPAY | PROVIDERS: PCP Internal Medicine; Visit Provider Internal Medicine | DX: I26.99 Other pulmonary embolism without acute cor pulmonale (principal); Z51.81 Encounter for therapeutic drug level monitoring; Z79.01 Long term (current) use of anticoagulants | CPT/HCPCS: 85610; 99211 ==

== ENCOUNTER 2024-02-26 10:06 | Outpatient (AMB) | payer BC, SELFPAY ==
[2024-02-26 10:23] LABS: Prothrombin Time Whole Bld POC 28.7 sec (11.1-13.5); ~PT, ~INR - Anti Coag Clinic 2.4 (0.9-1.1)
--- NOTE | 2024-02-26 16:38 | MHC.OFFVISCO ---
Intake Intake Visit Reasons: Anticoagulation Allergies No Known Allergies Allergy (Verified 02/26/24 10:18) Medication List - Last Reconciled 02/26/24 by Elba Foote, RN cholecalciferol (vitamin D3) 50 mcg PO DAILY ferrous sulfate (Iron (ferrous sulfate)) 325 mg PO DAILY psyllium husk (Metamucil) 2 tsp PO DAILY vitamin B complex (B Complex-Vitamin B12 tablet) 1 tab PO DAILY warfarin 5 mg See Protocol PO DAILY Nursing Note INR: 2.4 in therapeutic range of 2-3 Medications and supplements reviewed No changes in health, diet, medications, or supplements, Denies any signs and symptoms of bleeding or bruising or clotting. Bleeding, bruising, clotting discussed Nutritional guidance given Dose: continue same dose of 7.5mg X 4 days and 5mg X 3 days F/U INR: 4 weeks Patient verbalizes understanding of instructions given Coding Level of Care Code Est Patient Level 1 Diagnoses Current use of anticoagulant therapy Z79.01 Assessment & Plan Assessment & Plan (1) Current use of anticoagulant therapy: Code(s): Z79.01 - emt intermediate (current) use of anticoagulants Category: Medical
== END 2024-02-26 10:44 | disposition home or self-care (01) ==
LOC: HO.ACS 10:06
PROVIDERS: PCP Internal Medicine; Visit Provider Internal Medicine
DX: Z79.01 Long term (current) use of anticoagulants (principal)

== ENCOUNTER → 2024-02-26 10:06 | Outpatient (BNVA) | payer BC, SELFPAY | PROVIDERS: PCP Internal Medicine; Visit Provider Internal Medicine | DX: I26.99 Other pulmonary embolism without acute cor pulmonale (principal); Z79.01 Long term (current) use of anticoagulants; Z51.81 Encounter for therapeutic drug level monitoring | CPT/HCPCS: 85610; 99211 ==

== ENCOUNTER 2024-03-25 13:02 | Outpatient (AMB) | payer BC, SELFPAY ==
[2024-03-25 13:06] LABS: ~PT, ~INR - Anti Coag Clinic 3.3 (0.9-1.1)
--- NOTE | 2024-03-25 13:16 | MHC.OFFVISCO ---
Intake Intake Visit Reasons: Anticoagulation Allergies No Known Allergies Allergy (Verified 03/25/24 13:02) Medication List - Last Reconciled 03/25/24 by Elba Foote, RN cholecalciferol (vitamin D3) 50 mcg PO DAILY ferrous sulfate (Iron (ferrous sulfate)) 325 mg PO DAILY psyllium husk (Metamucil) 2 tsp PO DAILY vitamin B complex (B Complex-Vitamin B12 tablet) 1 tab PO DAILY warfarin 5 mg See Protocol PO DAILY Nursing Note INR: 3.3 out of therapeutic range of 2-3 Medications and supplements reviewed No changes in health, diet, medications, or supplements, Denies any signs and symptoms of bleeding or bruising or clotting. Bleeding, bruising, clotting discussed Nutritional guidance given to have a serving of greens today. Pt states he will have brussel sprouts. 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
== END 2024-03-25 13:18 | disposition home or self-care (01) ==
LOC: HO.ACS 13:02
PROVIDERS: PCP Internal Medicine; Visit Provider Internal Medicine
DX: Z79.01 Long term (current) use of anticoagulants (principal)

== ENCOUNTER → 2024-03-25 13:02 | Outpatient (BNVA) | payer BC, SELFPAY | PROVIDERS: PCP Internal Medicine; Visit Provider Internal Medicine | DX: I26.99 Other pulmonary embolism without acute cor pulmonale (principal); Z79.01 Long term (current) use of anticoagulants; Z51.81 Encounter for therapeutic drug level monitoring | CPT/HCPCS: 85610; 99211 ==

== ENCOUNTER 2024-04-21 09:48 | Outpatient (AMB) | payer BC, SELFPAY ==
--- NOTE | 2024-04-21 09:58 | MHC.OFFVISCO ---
Intake Intake Visit Reasons: Anticoagulation Allergies No Known Allergies Allergy (Verified 04/21/24 09:54) Medication List - Last Reconciled 04/21/24 by Leslie Torres RN cholecalciferol (vitamin D3) 50 mcg PO DAILY ferrous sulfate (Iron (ferrous sulfate)) 325 mg PO DAILY psyllium husk (Metamucil) 2 tsp PO DAILY vitamin B complex (B Complex-Vitamin B12 tablet) 1 tab PO DAILY warfarin 5 mg See Protocol PO DAILY Nursing Note INR: 2.4- in therapeutic range of 2-3 Medications and supplements reviewed- no changes No changes in health, diet, medications, or supplements, Denies any signs and symptoms of bleeding or bruising or clotting. 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
[2024-04-21 09:59] LABS: Prothrombin Time Whole Bld POC 28.9 sec (11.1-13.5); ~PT, ~INR - Anti Coag Clinic 2.4 (0.9-1.1)
== END 2024-04-21 10:03 | disposition home or self-care (01) ==
LOC: HO.ACS 09:48
PROVIDERS: PCP Internal Medicine; Visit Provider Internal Medicine
DX: Z79.01 Long term (current) use of anticoagulants (principal)

== ENCOUNTER → 2024-04-21 09:48 | Outpatient (BNVA) | payer BC, SELFPAY | PROVIDERS: PCP Internal Medicine; Visit Provider Internal Medicine | DX: I26.99 Other pulmonary embolism without acute cor pulmonale (principal); Z79.01 Long term (current) use of anticoagulants; Z51.81 Encounter for therapeutic drug level monitoring | CPT/HCPCS: 85610; 99211 ==

== ENCOUNTER 2024-05-19 09:58 | Outpatient (AMB) | payer BC, SELFPAY ==
--- NOTE | 2024-05-19 10:12 | MHC.OFFVISCO ---
Intake Intake Visit Reasons: Anticoagulation Allergies No Known Allergies Allergy (Verified 04/21/24 09:54) Nursing Note INR: 3.1 ALMOST in therapeutic range Medications and supplements reviewed No changes in health, diet, medications, or supplements, Denies any signs and symptoms of bleeding or bruising or clotting. Bleeding, bruising, clotting discussed Nutritional guidance given Dose: KEEP SAME DOSE 5MG MWF/ 7.5MG X 4 DAYS F/U INR: 1 MONTH Patient verbalizes understanding of instructions given Coding Level of Care Code Est Patient Level 1 Diagnoses Current use of anticoagulant therapy Z79.01 Results AMB INR Fingerstick AMB INR Fingerstick 3.1 Last Edit by Marybeth Bartlett RN on 05/19/24 10:08 manual entr Assessment & Plan Assessment & Plan (1) Current use of anticoagulant therapy: Code(s): Z79.01 - [facility] (current) use of anticoagulants Category: Medical
[2024-05-19 11:19] LABS: Prothrombin Time Whole Bld POC 37.4 sec (11.1-13.5); ~PT, ~INR - Anti Coag Clinic 3.1 (0.9-1.1)
== END 2024-05-19 10:14 | disposition home or self-care (01) ==
LOC: HO.ACS 09:58
PROVIDERS: PCP Internal Medicine; Visit Provider Internal Medicine
DX: Z79.01 Long term (current) use of anticoagulants (principal)

== ENCOUNTER → 2024-05-19 09:58 | Outpatient (BNVA) | payer BC, SELFPAY | PROVIDERS: PCP Internal Medicine; Visit Provider Internal Medicine | DX: I26.99 Other pulmonary embolism without acute cor pulmonale (principal); Z79.01 Long term (current) use of anticoagulants; Z51.81 Encounter for therapeutic drug level monitoring | CPT/HCPCS: 85610; 99211 ==

== ENCOUNTER 2024-06-23 09:56 | Outpatient (AMB) | payer BC, SELFPAY ==
--- OUTSIDE RECORDS SUMMARY | 2024-06-23 09:59 | XMS_ITS ---
Author Organization [facility] Address [address] [place] [address] Care Team Providers Care Put In Beat Adjuster Name Role Phone KHADIJAH GIRON Primary Care Provider REASON FOR VISIT Laryngeal Surgeon Referral Encounters Encounter Location Date Provider Diagnosis [facility] [address] [place] [address] 03/27/2023 KHADIJAH GIRON Plan Of Treatment No Information Progress Notes * Conor MOREAUsDOB:1965 (57 yo M)Acc No.[id number]:03/27/2023 Patient:?Efren Moreau :1965???Age:57 Y???Sex:Male Address:[address], [place], [address] * true * Date:? Generated for Printi ng/Jarrett/eTransmitting on:?06/23/2024 09:58 AM EST
--- OUTSIDE RECORDS SUMMARY | 2024-06-23 09:59 | XMS_ITS ---
Author Organization [facility] Address [address] [place] [address] Care Team Providers Care Fire Truck Driver Name Role Phone KHADIJAH GIRON Primary Care Provider REASON FOR VISIT referral Encounters Encounter Location Date Provider Diagnosis [facility] [address] [place] [address] 03/20/2023 KHADIJAH GIRON Plan Of Treatment No Information Progress Notes * Conor BUTLERsDOB:1965 (57 yo M)Acc No.[id number]:03/20/2023 Patient:?Efren Butler :1965???Age:57 Y???Sex:Male Address:[address], [place], [address] * true * Date:? Generated for Printi ng/Fahaleyg/eTransmitting on:?06/23/2024 09:58 AM EST
--- OUTSIDE RECORDS SUMMARY | 2024-06-23 09:59 | XMS_ITS | Patient Health Record ---
Author Organization [facility] Address [address] [place] [address] Care Team Providers Care Trimmer Sawyer Name Role Phone KHADIJAH GIRON Primary Care Provider [phone] Allergies No Known Allergies Reason For Referral No Information Medications Medication SIG (Take, Route, Frequency, Duration) Notes Start Date End Date Status Warfarin Sodium 5 MG TAKE 1 TO 2 TABLETS BY MOUTH EVERY DAY for 90 Active Vitamin B 12 500 MCG 2 tablet Orally Onc e a day Active Ostomy Supplies Pouch POUCHES DX: K51.80 USE DIRECTED 03/19/2020 Active Ostomy Supplies - . DX: ULCERATIVE ILEOCOLITIS K51.80 USE DIRECTED 08/04/2016 Active Ostomy Supplies Pouch . DX: ULCERATIVE ILEOCOLITIS K51.80 USE DIRECTED 08/04/2016 Active Ferrous Sulfate 325 (65 Fe) MG 1 tablet Oral Once a day 07/11/2010 Active Rosuvastatin Calcium 20 MG 1 tablet Orally Once a day for 90 day(s) 11/30/2017 Not-Taking Vitamin D (Ergocalciferol) 1.25 MG (02935 UT) TAKE 1 CAPSULE BY MOUTH ONE TIME PER WEEK 56 for 56 Not-Taking Immunizations Vaccine Route Administration Date Status Comme nts Tdap IM Intramuscular 12/10/2014 Administered MIG_SI D-Immunizat ion Date :10Dec2014 10:20AM PPD ID Intradermal 09/18/2017 Administered PPD IM Intramuscular 04/21/2019 Administered PPD ID Intradermal 04/29/2019 Administered PPD ID Intradermal 03/22/2021 Administered Influenza (split), 3 yrs and above IM Intramuscular 03/15/2019 Administered [facility] Social History Tobacco Use: Social History Observation Description Date Details (start date - stop date) Never Smoker NA - NA Tobacco Use/Smoking Question Answer Notes Are you a nonsmoker Additional Findings: Tobacco Non-User Current no n-smoker Alcohol Screen (Audit-C) Question Answer Notes Did you have a drink contain ing alcohol in the past year? Yes How often did you have a dri nk containing alcohol in the past year? 2 to 4 times a month (2 points) How many drinks did you have on a typical day when you were drinking in the past year? 1 or 2 drinks (0 point) How often did you have 6 or more drinks on one occasion in the past year? Never (0 point) Points 2 Interpretation Positive Tobacco use other than smoking: Question Answer Notes Are you an other tobacco user? No Section Notes: 27 years . 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 BF [place] for 8 yrs Second dtr Deidra is 16 yrs Graduated from [employer] in [facility] will pay $15k and took a loan for $16K Will stay on campus. Residence Lives in [place] in own house for 11 years Has 194K mortgag Will downsize and move to be near daughters. Hobbies. Likes reading the bibles and classics Read the quran given a friend from [facility]. 27 years . 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 [place] for 8 yrs Second dtr Deidra is 16 yrs Graduated from [employer] in [place] will pay $15k and took a loan for $16K Will stay on campus. Residence Lives in [place] in own house for 11 years Has 194K mortgag Will downsize and move to be near daughters. Hobbies. Likes reading the bibles and classics Read the quran given a friend from [place]. 27 years . 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 BF [employer] for 8 yrs Second dtr Deidra is 16 yrs Graduated from [employer] in [place] will pay $15k and took a loan for $16K Will stay on campus. Residence Lives in [place] in own house for 11 years Has 194K mortgag Will downsize and move to be near daughters. Hobbies. Likes reading the bibles and classics Read the quran given a friend from [facility]. 27 years . 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 [employer] for 8 yrs Second dtr Deidra is 16 yrs Graduated from [employer] in [place] will pay $15k and took a loan for $16K Will stay on campus. Residence Lives in [place] in own house for 11 years Has 194K mortgag Will downsize and move to be near daughters. Hobbies. Likes reading the bibles and classics Read the quran given a friend from [place]. . Yeny Martin is working at [employer] in [facility] Dtr Anabelle 18 yr graduated from [employer] in [place] and going to [employer] [facility] in [place] Now teaching biology at [employer] in [place] Second dtr Deidra is 14 yrs Going to go to [employer]. 25 years . 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 [employer] Nancy for 8 yrs Second dtr Deidra is 16 yrs Graduated from [employer] in [place] [facility] will pay $15k and took a loan for $16K Will stay on campus. Residence Lives in [place] in own house for 11 years Has 194K mortgag Will downsize and move to be near daughters. Hobbies. Likes reading the bibles and classics Read the quran given a friend from [facility]. . 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 Second dtr Deidra is 11 yrs Going to go to [employer]. Sorts and good grades . 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 Second dtr Deidra is 11 yrs Going to go to [employer]. Sorts and good grades . 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 Second dtr Deidra is 11 yrs Going to go to [employer]. Sorts and good grades . 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 Second dtr Deidra is 11 yrs Going to go to [employer]. Sorts and good grades . 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 Second dtr Deidra is 11 yrs Going to go to [employer]. Sorts and good grades 27 years . 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 [place] for 8 yrs Second dtr Deidra is 16 yrs Graduated from [employer] in [place] [facility] will pay $15k and took a loan for $16K Will stay on campus. Residence Lives in [place] in own house for 11 years Has 194K mortgag Will downsize and move to be near daughters. Hobbies. Likes reading the bibles and classics Read the quran given a friend from [facility]. 27 years . 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 [place] for 8 yrs Second dtr Deidra is 16 yrs Graduated from [employer] in [place] will pay $15k and took a loan for $16K Will stay on campus. Residence Lives in [place] in own house for 11 years Has 194K mortgag Will downsize and move to be near daughters. Hobbies. Likes reading the bibles and classics Read the quran given a friend from [facility]. . Yeny Martin is working at [employer] in [facility] Dtr Anabelle 18 yr graduated from [employer] in [place] and going to [employer] in [place] Now teaching biology at [employer] in [place]. Second dtr Deidra is 14 yrs Going to go to [employer]. . is working at [employer] in [facility] Dtr Anabelle 18 yr graduated from [employer] in [place] and going to [employer] in [place] Now teaching biology at [employer] in [place]. Second dtr Deidra is 14 yrs Going to go to [employer]. . 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 Second dtr Deidra is 11 yrs Going to go to [employer]. Sorts and good grades . 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 Second dtr Deidra is 11 yrs Going to go to [employer]. Sorts and good grades . 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 Second dtr Deidra is 11 yrs Going to go to [employer]. Sorts and good grades 27 years . Met Saini at the [employer] where she was a stockbridge Yeny Martin is 49 yr is worked at [employer] in [facility] for 6 yrs Now working for a new company on Mar 28, 2021 , from home Has to go to [place] twice a month. 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 [employer] Nancy for 8 yrs Second dtr Deidra is 16 yrs Graduated from [employer] in [place] [facility] will pay $15k and took a loan for $16K Will stay on campus. Residence Lives in [place] in own house for 11 years Has 194K mortgag Will downsize and move to be near daughters. Hobbies. Likes reading the bibles and classics Read the quran given a friend from [place]. 27 years . 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 BF [place] for 8 yrs Second dtr Deidra is 16 yrs Graduated from [employer] in [place] will pay $15k and took a loan for $16K Will stay on campus. Residence Lives in [place] in own house for 11 years Has 194K mortgag Will downsize and move to be near daughters. Hobbies. Likes reading the bibles and classics Read the quran given a friend from [facility]. . 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 Second dtr Deidra is 11 yrs Going to go to [employer]. Sorts and good grades . 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 Second dtr Deidra is 11 yrs Going to go to [employer]. Sorts and good grades . 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 Second dtr Deidra is 11 yrs Going to go to [employer]. 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 Agrees to get a CT Calcium Score to assess his risk and use of statini 12/20/21 ct coronary calcium score 0 04/25/22 ascvd risk 6.2%, ct coronary risk score 0, appt with cardiology dwaine for palpitations. no other symptoms Problem Cardiac arrhythmia (385272949) Cardiac arrhythmia, unspecified (I49.9) Active confirmed Problem Gastro-esophagea l reflux disease without esophagitis (679805153) Gastro-esophagea l reflux disease without esophagitis (K21.9) Active confirmed Problem Ulcerative colitis (60975142) Ulcerative colitis, unspecified with unspecified complications (K51.919) Active confirmed Problem Hemorrhoids (83517540) Other hemorrhoids (K64.8) Active confirmed Problem Backache (223979874) Dorsalgia, unspecified (M54.9) Active confirmed Problem Long-term current use of anticoagulant (847515588) group home (current) use of anticoagulants (Z79.01) Active confirmed Started 20 year s ago. Gets INR checked at coumadin clinic at [facility] Problem Ileostomy present (275632808) Ileostomy status (Z93.2) Active confirmed 11/28/22 Has a ne w osteomy Going to [facility] for Wound Care Problem Vitamin D deficiency (71148150) Vitamin D deficiency (E55.9) Active confirmed 11/08/20 vit d low, will start ergocalciferol 50,000 units weekly for 6 months then repeat lab Problem Hyperlipidemia (37841366) Hyperlipidemia (E78.5) Active confirmed 07/13/2020- last labs show elevated cholesterol and ratio of 5.1 Father at age 76 from Cancer colon Mother at age 80 from ?VT in [place] Agrees to get a CT Calcium Score to assess his risk and use of statins 11/08/20 coronary calcium score 0, no need to start cholesterol medication, pt educated Problem 649395815 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) Active confirmed [facility] monthly Problem 24732385 Depression, major, 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) Active confirmed Problem 81843906 Ulcerative (chronic) ileocolitis (K51.80) Active confirmed s/p Total Colectomy in 2006 Sees a GI doctor Cruzito Storm in [facility] Last seen 5 years ago 08/22/21 Has functional osteomy for 16 years 12/20/21 will refer to GI in the area to be established with someone, no current issues 04/25/[address] gonzalez, has not heard yet, will call Problem 395966970 Atrophy of left kidney (N26.1) Active confirmed Malfunctional Left Kidney(atrophied ) Picked up at [facility] prior to surgery Problem 862145317 Rapid palpitations (R00.2) Active confirmed Problem 492005564 Hospital discharge follow-up (Z09) Active confirmed Problem Disability evaluation procedure (62631816) Disability examination (Z02.71) Active confirmed 10 pages forms filled Given continuous leave from 08/20/22 to 01/06/23 . I will see him before that to give clearance for return to work. ICD codes was derived from [employer] search and noted down on the forms as there was no discharge summary from [facility] and [place] Problem 86657317 Subacute frontal sinusitis (J01.10) Active confirmed 05/16/22 Will treat with Cephalexin and Medrol Nils Problem Kidney stone (51326821) Renal stones (N20.0) Active confirmed Problem Lipoma (84940714) Lipoma, unspecified site (D17.9) Active confirmed Problem 739971106964629 Left Achilles tendinitis (M76.62) Active confirmed Will refer to desktop publishing specialist Has high arches Problem 284201275 Return to work evaluation (Z76.89) Active confirmed 01/02/23 Can return to work Should rest 15 minutes after walking 2 mikes and not carry weight more than 25 lbs . Will fill out forms which I may get in the mail Problem 371251111 History of creation of ostomy (Z93.9) Active confirmed Since [address] total hemicolostomy Problem 921912450 Swallowing impaired (R13.10) Active confirmed Problem 960883107 Malnutrition following gastrointestinal surgery (K91.2) Active confirmed Problem 907177055 Vocal cord dysfunction (J38.3) Active confirmed 11/28/[address] Conroy for evaluation Problem 346698705 Protein-calorie malnutrition, mild (E44.1) Active confirmed 11/28/22 Significant weakness and weight loss after his prolonged hospitalization and bowel surgery He will need supplemetation with Ensure 2-3 cans a day [facility] will cover it Pharmacy [phone] I will send the script for 3 months supply which will be shipped to his house Plan Of Treatment Pending Test Test Name Order Date Vitamin B12 and Folate 10/19/2022 Urinalysis, Complete 10/19/2022 Lipid Panel 03/21/2021 Chem-Comprehensive 03/21/2021 Chem-Comprehensive 10/19/2022 Ultrasound : Kidneys 04/25/2022 VITAMIN B12 10/19/2022 BASIC METABOLIC PANEL (BMP) 04/25/2022 CBC 03/21/2021 CBC WITH AUTO DIFF 07/13/2020 COMPREHENSIVE METABOLIC PANEL 07/13/2020 IRON (FE) 07/13/2020 LIPID PROFILE 07/13/2020 B12 AND FOLATE PROFILE 07/13/2020 VITAMIN D, 25-HYDROXY 07/13/2020 VITAMIN D, 25-HYDROXY 03/21/2021 CC PRIMARY 08/15/2022 LIPID PANEL 10/19/2022 tsh 10/19/2022 Future Test Test Name Order Date Vitamin B12 and Folate 08/22/2021 Lipid Panel 08/22/2021 Chem-Comprehensive 08/22/2021 VITAMIN D, 25-HYDROXY 08/22/2021 Insurance Providers Payer Name Payer Address Payer Phone Subscriber Number Group Number Insured Name Patient Relationship to Insured Coverage Start Date Coverage End Date Blue [employer] and Blue [facility] [address] [place] [address] [id number] Efren Moreau Self - patient is the insured Medical (General) History Medical History History ICD Code Ulcerative Colitis s/p Total Colectomy in 2006 Sees a GI doctor Cruzito Storm in [facility] Last seen 7 years ago. No local GI Pulmonary Embolism , recurre nt. October 2002 and 2003. Has coagulopathy Saw and told type 2 defect On warfarin 37 mg a week for a long time Goes to [facility] as [facility] . Malfunctional Left Kidney(at [facility]) Picked up at [facility] prior to surgery Hx of Depression Was on Paxil for a year Stopped 2 year ago Hypertriglyceridemia Will check levels Right mid foot pain Resolved on its own . Colostomy Bag; Needs supplies given by dusty alvarado Surgical History Surgery Date(Month/Year) Total Hemicolectomy by Dr Kelsie Fernando at [facility] in [place] , december2007December 2007 Bowel reconstruction [facility] 07/30 Dafne [place] for perforated bowel Transferred to [facility] by helicopter
--- OUTSIDE RECORDS SUMMARY | 2024-06-23 09:59 | XMS_ITS ---
Author Organization [facility] Address [address] [place] [address] Care Team Providers Care Licensed Weigher Name Role Phone DEAN VAUGHN Primary Care Provider REASON FOR VISIT cpe Encounters Encounter Location Date Provider Diagnosis [facility] [address] [place] [address] 07/09/2023 DEAN VAUGHN Plan Of Treatment No Information Progress Notes * Conor MOREAUsDOB:1965 (58 yo M)Acc No.[id number]:07/09/2023 Progress Notes Patient:?Efren MOREAU Provider:?Dean Vaughn MD :1965???Age:58 Y???Sex:Male Ousmane e:07/09/2023 Address:[facility] [address], [address] [id number] Subjective: * Chief Complaints: * ???1. Cpe. * Medical History:? * Ocular Surgical History:? Objective: * Vitals:? Assessment: Plan: * Treatment: Care Plan: * Problems:? * Billing Information: * Visit Code:? * Procedure Codes:? Care Plan Details* * Electronic signature of JONN VAUGHN MD on 06/23/2024 at 09:58 AM EST Sign off status: Pending * Provider:?Dean Vaughn MD Date:?2023 Generated for Printi ng/Faxing/eTransmitting on:?06/23/2024 09:58 AM EST
--- NOTE | 2024-06-23 10:06 | MHC.OFFVISCO ---
Intake Intake Visit Reasons: Anticoagulation Allergies No Known Allergies Allergy (Verified 06/23/24 10:03) Medication List - Last Reconciled 06/23/24 by Leslie Torres RN cholecalciferol (vitamin D3) 50 mcg PO DAILY ferrous sulfate (Iron (ferrous sulfate)) 325 mg PO DAILY psyllium husk (Metamucil) 2 tsp PO DAILY vitamin B complex (B Complex-Vitamin B12 tablet) 1 tab PO DAILY warfarin 5 mg See Protocol PO DAILY Nursing Note INR 3.5-?? out of therapeutic range of 2-3 Medications and supplements reviewed- no changes Patient status: etoh / holidays Medications or supplements: no changes Diet: same Denies any signs and symptoms of bleeding or clotting or unusual bruising Bleeding, bruising, clotting discussed Nutritional guidance given: eat greens to lower, no reds for 2 days Dose: 2.5mg today only, then cont reg 5mg x 3, 7.5mg x 4 F/U INR Date : 2 weeks Patient verbalizing understanding of instructions given. Coding Level of Care Code Est Patient Level 1 Diagnoses Current use of anticoagulant therapy Z79.01 Results AMB INR Fingerstick AMB INR Fingerstick 3.5 Last Edit by Leslie Torres RN on 06/23/24 10:09 interface delay Assessment & Plan Assessment & Plan (1) Current use of anticoagulant therapy: Code(s): Z79.01 - custodial (current) use of anticoagulants Category: Medical
[2024-06-23 10:14] LABS: Prothrombin Time Whole Bld POC 41.4 sec (11.1-13.5); ~PT, ~INR - Anti Coag Clinic 3.5 (0.9-1.1)
== END 2024-06-23 10:14 | disposition home or self-care (01) ==
LOC: HO.ACS 09:56
PROVIDERS: PCP Internal Medicine; Visit Provider Internal Medicine
DX: Z79.01 Long term (current) use of anticoagulants (principal)

== ENCOUNTER → 2024-06-23 09:56 | Outpatient (BNVA) | payer BC, SELFPAY | PROVIDERS: PCP Internal Medicine; Visit Provider Internal Medicine | DX: I26.99 Other pulmonary embolism without acute cor pulmonale (principal); Z79.01 Long term (current) use of anticoagulants; Z51.81 Encounter for therapeutic drug level monitoring | CPT/HCPCS: 85610; 99211 ==

== ENCOUNTER 2024-07-07 09:21 | Outpatient (AMB) | payer BC, SELFPAY ==
--- NOTE | 2024-07-07 09:43 | MHC.OFFVISCO ---
Intake Intake Visit Reasons: Anticoagulation Allergies No Known Allergies Allergy (Verified 07/07/24 09:32) Medication List - Last Reconciled 07/07/24 by Elba Foote RN cholecalciferol (vitamin D3) 50 mcg PO DAILY ferrous sulfate (Iron (ferrous sulfate)) 325 mg PO DAILY psyllium husk (Metamucil) 2 tsp PO DAILY vitamin B complex (B Complex-Vitamin B12 tablet) 1 tab PO DAILY warfarin 5 mg See Protocol PO DAILY Nursing Note INR: 2.6 in therapeutic range of 2-3 Medications and supplements reviewed No changes in health, diet, medications, or supplements, Denies any signs and symptoms of bleeding or bruising or clotting. Bleeding, bruising, clotting discussed Nutritional guidance given Dose: 7.5mg X 4 days and 5mg X 3 days F/U INR: 4 weeks Patient verbalizes understanding of instructions given Coding Level of Care Code Est Patient Level 1 Diagnoses Current use of anticoagulant therapy Z79.01 Results AMB INR Fingerstick AMB INR Fingerstick 2.6 Last Edit by Elba Foote RN on 07/07/24 09:39 interface delay Assessment & Plan Assessment & Plan (1) Current use of anticoagulant therapy: Code(s): Z79.01 - tank terminal gauger (current) use of anticoagulants Category: Medical
[2024-07-07 09:45] LABS: Prothrombin Time Whole Bld POC 31.4 sec (11.1-13.5); ~PT, ~INR - Anti Coag Clinic 2.6 (0.9-1.1)
--- OUTSIDE RECORDS SUMMARY | 2024-07-07 10:04 | XMS_ITS ---
Author Organization [facility] Address [address] [place] [address] Care Team Providers Care Inspector Watch Train Name Role Phone KHADIJAH GIRON Primary Care Provider [phone] REASON FOR VISIT Laryngeal Surgeon Referral Encounters Encounter Location Date Provider Diagnosis [facility] [address] [place] [address] 03/27/2023 KHADIJAH GIRON Plan Of Treatment No Information Progress Notes * Conor MOREAUsDOB:1965 (57 yo M)Acc No.[id number]:03/27/2023 Patient:?Efren Moreau :1965???Age:57 Y???Sex:Male Address:[address], [place], [address] * true * Date:? Generated for Venkateshi rodolfo/Jarrett/eTransmitting on:?07/07/2024 10:04 AM EST
--- OUTSIDE RECORDS SUMMARY | 2024-07-07 10:04 | XMS_ITS ---
Author Organization [facility] Address [address] [place] [address] Care Team Providers Care Cnc Machine Programmer Name Role Phone KHADIJAH GIRON Primary Care Provider REASON FOR VISIT referral Encounters Encounter Location Date Provider Diagnosis [facility] [address] [place] [address] 03/20/2023 KHADIJAH GIRON Plan Of Treatment No Information Progress Notes * Conor BUTLERsDOB:1965 (57 yo M)Acc No.[id number]:03/20/2023 Patient:?Efren Butler :1965???Age:57 Y???Sex:Male Address:[address], [place], [address] * true * Date:? Generated for Printi ng/Jarrett/eTransmitting on:?07/07/2024 10:04 AM EST
--- OUTSIDE RECORDS SUMMARY | 2024-07-07 10:04 | XMS_ITS | Patient Health Record ---
Author Organization [facility] Address [address] [place] [address] Care Team Providers Care Hand Sander Name Role Phone KHADIJAH GIRON Primary Care Provider Allergies No Known Allergies Reason For Referral [...] 11/30/2017 Not-Taking Vitamin D (Ergocalciferol) 1.25 MG (32184 UT) TAKE 1 CAPSULE BY MOUTH ONE TIME PER WEEK 56 for 56 Not-Taking Immunizations Vaccine Route Administration Date Status Comme nts Influenza (split), 3 yrs and above IM Intramuscular 03/15/2019 Administered [facility] PPD ID Intradermal 09/18/2017 Administered PPD IM Intramuscular 04/21/2019 Administered PPD ID Intradermal 04/29/2019 Administered PPD ID Intradermal 03/22/2021 Administered Tdap IM Intramuscular 12/10/2014 Administered MIG_SI D-Immunizat ion Date :10Dec2014 10:20AM Social History Tobacco Use: Social History Observation [...] an other tobacco user? No Section Notes: . is working at [employer] Dtr Anabelle 16 yr graduated from [employer] in [place] and going to 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 Second dtr Deidra is 11 yrs Going to go to [employer]. Sorts and good grades . is working at [employer] Dtr Anabelle 16 yr graduated from [employer] in [place] and going to 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 Second dtr Deidra is 11 yrs Going to go to [employer]. Sorts and good grades . is working at [employer] Dtr Anabelle 16 yr graduated from [employer] in [place] and going to 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 Second dtr Deidra is 11 yrs Going to go to [employer]. Sorts and good grades . is working at [employer] Dtr Anabelle 16 yr graduated from [employer] in [place] and going to 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 Second dtr Deidra is 11 yrs Going to go to [employer]. Sorts and good grades . is working at [employer] in [facility] Dtr Anabelle 16 yr graduated from [employer] in [place] and going to 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 Second dtr Deidra is 11 yrs Going to go to [employer]. Sorts and good grades . 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 Second dtr Deidra is 11 yrs Going to go to [employer]. Sorts and good grades . 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 Second dtr Deidra is 14 yrs Going to go to [employer]. . 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 Second dtr Deidra is 14 yrs Going to go to [employer]. . 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 Second dtr Deidra is 14 yrs Going to go to [employer]. 27 years . Met Saini at the [employer] where she was a cherokee Yeny Martin is 49 yr is worked at [employer] in [facility] for 6 yrs Now working for a new company on Mar 28, 2021 , from home Has to go to [place] twice a month. 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 [employer] for 8 yrs Second dtr Deidra is 16 yrs Graduated from [employer] in [facility] will pay $15k and took a loan for $16K Will stay on campus. Residence Lives in [place] in own house for 11 years Has 194K mortgag Will downsize and move to be near daughters. Hobbies. Likes reading the bibles and classics Read the quran given a friend from [place]. 27 years . Met Saini at the [employer] where she was a cherokee Yeny Martin is 49 yr is worked at [employer] in [facility] for 6 yrs Now working for a new company on Mar 28, 2021 , from home Has to go to [place] twice a month. 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 BF [employer] for 8 yrs Second dtr Deidra is 16 yrs Graduated from [employer] in [facility] will pay $15k and took a loan for $16K Will stay on campus. Residence Lives in [place] in own house for 11 years Has 194K mortgag Will downsize and move to be near daughters. Hobbies. Likes reading the bibles and classics Read the quran given a friend from [facility]. 27 years . Met Yeny at the [facility] where she was a cherokee Yeny Martin is 49 yr is worked at [employer] for 6 yrs Now working for a new company on Mar 28, 2021 , from home Has to go to [place] twice a month. 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 BF [employer] for 8 yrs Second dtr Deidra is 16 yrs Graduated from [employer] in [facility] will pay $15k and took a loan for $16K Will stay on campus. Residence Lives in [place] in own house for 11 years Has 194K mortgag Will downsize and move to be near daughters. Hobbies. Likes reading the bibles and classics Read the quran given a friend from [facility]. 27 years . Met Yeny at the [facility] where she was a cherokee Yeny Martin is 49 yr is worked at [employer] in [facility] for 6 yrs Now working for a new company on Mar 28, 2021 , from home Has to go to [place] twice a month. 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 BF [employer] for 8 yrs Second dtr Deidra is 16 yrs Graduated from [employer] in [facility] will pay $15k and took a loan for $16K Will stay on campus. Residence Lives in [place] in own house for 11 years Has 194K mortgag Will downsize and move to be near daughters. Hobbies. Likes reading the bibles and classics Read the quran given a friend from [facility]. 27 years . Met Yeny at the [facility] where she was a cherokee Yeny Martin is 49 yr is worked at [employer] in [facility] for 6 yrs Now working for a new company on Mar 28, 2021 , from home Has to go to [place] twice a month. 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 BF [employer] for 8 yrs Second dtr Deidra is 16 yrs Graduated from [employer] in [facility] will pay $15k and took a loan for $16K Will stay on campus. Residence Lives in [place] in own house for 11 years Has 194K mortgag Will downsize and move to be near daughters. Hobbies. Likes reading the bibles and classics Read the quran given a friend from [facility]. 27 years . Met Yeny at the [facility] where she was a cherokee Yeny Martin is 49 yr is worked at [employer] in [facility] for 6 yrs Now working for a new company on Mar 28, 2021 , from home Has to go to [place] twice a month. 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 BF [employer] for 8 yrs Second dtr Deidra is 16 yrs Graduated from [employer] in [facility] will pay $15k and took a loan for $16K Will stay on campus. Residence Lives in [place] in own house for 11 years Has 194K mortgag Will downsize and move to be near daughters. Hobbies. Likes reading the bibles and classics Read the quran given a friend from [facility]. . 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 Second dtr Deidra is 11 yrs Going to go to [employer]. Sorts and good grades . 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 Second dtr Deidra is 11 yrs Going to go to [employer]. Sorts and good grades . 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 Second dtr Deidra is 11 yrs Going to go to [employer]. Sorts and good grades . 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 Second dtr Deidra is 11 yrs Going to go to [employer]. Sorts and good grades 27 years . Met Yeny at the [facility] [employer] [place] where she was a cherokee Yeny Martin is 49 yr is worked at [employer] in [facility] for 6 yrs Now working for a new company on Mar 28, 2021 , from home Has to go to [place] twice a month. Dtr Anabelle 21 yr graduated from [employer] in [place] and went to 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 BF [employer] for 8 yrs Second dtr Deidra is 16 yrs Graduated from [employer] in [facility] will pay $15k and took a loan for $16K Will stay on campus. Residence Lives in [place] in own house for 11 years Has 194K mortgag Will downsize and move to be near daughters. Hobbies. Likes reading the bibles and classics Read the quran given a friend from [place]. 27 years . Met Yeny at the [facility] where she was a cherokee Yeny Martin is 49 yr is worked at [employer] in [facility] for 6 yrs Now working for a new company on Mar 28, 2021 , from home Has to go to [place] twice a month. 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 BF [employer] for 8 yrs Second dtr Deidra is 16 yrs Graduated from [employer] in [facility] will pay $15k and took a loan for $16K Will stay on campus. Residence Lives in [place] in own house for 11 years Has 194K mortgag Will downsize and move to be near daughters. Hobbies. Likes reading the bibles and classics Read the quran given a friend from [place]. 27 years . Met Yeny at the [facility] [employer] [place] where she was a cherokee Yeny Martin is 49 yr is worked at [employer] in [facility] for 6 yrs Now working for a new company on Mar 28, 2021 , from home Has to go to [place] twice a month. 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 BF [employer] for 8 yrs Second dtr Deidra is 16 yrs Graduated from [employer] in [facility] will pay $15k and took a loan for $16K Will stay on campus. Residence Lives in [place] in own house for 11 years Has 194K mortgag Will downsize and move to be near daughters. Hobbies. Likes reading the bibles and classics Read the quran given a friend from [place]. . 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 Second dtr Deidra is 11 yrs Going to go to [employer]. 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 no other symptoms Problem Cardiac arrhythmia (095966241) Cardiac arrhythmia, unspecified (I49.9) Active confirmed Problem Gastro-esophagea l reflux disease without esophagitis (989841847) Gastro-esophagea l reflux disease without esophagitis (K21.9) Active confirmed Problem Ulcerative colitis (64202624) Ulcerative colitis, unspecified with unspecified complications (K51.919) Active confirmed Problem Hemorrhoids (43131020) Other hemorrhoids (K64.8) Active confirmed Problem Backache (308803625) Dorsalgia, unspecified (M54.9) Active confirmed Problem Long-term current use of anticoagulant (310080223) ocean transportation intermediary (current) use of anticoagulants (Z79.01) Active confirmed Started 20 year s ago. Gets INR checked at coumadin clinic at [facility] Problem Ileostomy present (802650642) Ileostomy status (Z93.2) Active confirmed 11/28/22 Has a ne w osteomy [facility] [place] [facility] [place] [facility] Problem Vitamin D deficiency (90179726) Vitamin D deficiency (E55.9) Active confirmed 11/08/20 vit d low, will start ergocalciferol 50,000 units weekly for 6 months then repeat lab Problem Hyperlipidemia (44146685) Hyperlipidemia (E78.5) Active confirmed 07/13/2020- last labs show elevated cholesterol and ratio of 5.1 Father at age 76 from Cancer colon Mother at age 80 from ?[employer] in [place] Agrees to get a CT Calcium Score to assess his risk and use of statins 11/08/20 coronary calcium score 0, no need to start cholesterol medication, pt educated Problem 843417774 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) Active confirmed [facility] monthly Problem 30507159 Depression, major, 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) Active confirmed Problem 75409938 Ulcerative (chronic) ileocolitis (K51.80) Active confirmed s/p Total Colectomy in 2006 Sees a GI doctor Cruzito Storm in [facility] Last seen 5 years ago 08/22/21 Has functional osteomy for 16 years 12/20/21 will refer to GI in the area to be established with someone, no current issues 04/25/[address] gonzalez, has not heard yet, will call Problem 654825452 Atrophy of left kidney (N26.1) Active confirmed Malfunctional Left Kidney(atrophied ) Picked up at [facility] prior to surgery Problem 963499773 Rapid palpitations (R00.2) Active confirmed Problem 716770581 Hospital discharge follow-up (Z09) Active confirmed Problem Disability evaluation procedure (62864617) Disability examination (Z02.71) Active confirmed 10 pages forms filled Given continuous leave from 08/20/22 to 01/06/23 . I will see him before that to give clearance for return to work. ICD codes was derived from [employer] search and noted down on the forms as there was no discharge summary from [facility] and [place] Problem 69727249 Subacute frontal sinusitis (J01.10) Active confirmed 05/16/22 Will treat with Cephalexin and Medrol Nils Problem Kidney stone (12150636) Renal stones (N20.0) Active confirmed Problem Lipoma (09367515) Lipoma, unspecified site (D17.9) Active confirmed Problem 006862502548936 Left Achilles tendinitis (M76.62) Active confirmed Will refer to apartment leasing agent Has high arches Problem 209524655 Return to work evaluation (Z76.89) Active confirmed 01/02/23 Can return to work Should rest 15 minutes after walking 2 mikes and not carry weight more than 25 lbs . Will fill out forms which I may get in the mail Problem 550969487 History of creation of ostomy (Z93.9) Active confirmed Since [address] total hemicolostomy Problem 027034541 Swallowing impaired (R13.10) Active confirmed Problem 359749267 Malnutrition following gastrointestinal surgery (K91.2) Active confirmed Problem 180688440 Vocal cord dysfunction (J38.3) Active confirmed 11/28/[address] Conroy for evaluation Problem 915042298 Protein-calorie malnutrition, mild (E44.1) Active confirmed 11/28/22 Significant weakness and weight loss after his prolonged hospitalization and bowel surgery He will need supplemetation with Ensure 2-3 cans a day Jalbum Sheree will cover it Pharmacy [phone] I will send the script for 3 [...] Coverage End Date Blue Cross and Blue [facility] [address] [place] [address] [id number] Efren Moreau Self - patient is the insured Medical (General) History Medical History History ICD Code Ulcerative Colitis s/p Total Colectomy in 2006 Sees a GI doctor Cruzito Storm in [facility] Last seen 7 years ago. No local GI Pulmonary Embolism , recurre nt. October 2002 and 2003. Has coagulopathy Saw and told type 2 defect On warfarin 37 mg a week for a long time Goes to [facility] as [facility] . Malfunctional Left Kidney(at [facility]) Picked up at [facility] prior to surgery Hx of Depression Was on Paxil for a year Stopped 2 year ago Hypertriglyceridemia Will check levels Right mid foot pain Resolved on its own . Colostomy Bag; Needs supplies given by dusty alvarado Surgical History Surgery Date(Month/Year) Total Hemicolectomy by Dr Kelsie Fernando at [facility] in [place] , december2007December 2007 Bowel reconstruction [facility] 07/30 Dafne Louis for perforated bowel [place] [facility] [place]
== END 2024-07-07 09:45 | disposition home or self-care (01) ==
LOC: HO.ACS 09:21
PROVIDERS: PCP Internal Medicine; Visit Provider Internal Medicine
DX: Z79.01 Long term (current) use of anticoagulants (principal)

== ENCOUNTER → 2024-07-07 09:21 | Outpatient (BNVA) | payer BC, SELFPAY | PROVIDERS: PCP Internal Medicine; Visit Provider Internal Medicine | DX: I26.99 Other pulmonary embolism without acute cor pulmonale (principal); Z79.01 Long term (current) use of anticoagulants; Z51.81 Encounter for therapeutic drug level monitoring | CPT/HCPCS: 85610; 99211 ==

== ENCOUNTER 2024-08-18 09:59 | Outpatient (AMB) | payer BC, SELFPAY ==
[2024-08-18 10:16] LABS: Prothrombin Time Whole Bld POC 30.6 sec (11.1-13.5); ~PT, ~INR - Anti Coag Clinic 2.5 (0.9-1.1)
--- NOTE | 2024-08-18 10:17 | MHC.OFFVISCO ---
Intake Intake Visit Reasons: Anticoagulation Allergies No Known Allergies Allergy (Verified 08/18/24 10:07) Medication List - Last Reconciled 08/18/24 by Elba Foote, RN cholecalciferol (vitamin D3) 50 mcg PO DAILY ferrous sulfate (Iron (ferrous sulfate)) 325 mg PO DAILY psyllium husk (Metamucil) 2 tsp PO DAILY vitamin B complex (B Complex-Vitamin B12 tablet) 1 tab PO DAILY warfarin 5 mg See Protocol PO DAILY Nursing Note INR: 2.5 in therapeutic range Medications and supplements reviewed No changes in health, diet, medications, or supplements, Denies any signs and symptoms of bleeding or bruising or clotting. Bleeding, bruising, clotting discussed Nutritional guidance given Dose: 7.5mg X 4 days and 5mg X 3 days F/U INR: 4 weeks Patient verbalizes understanding of instructions given Coding Level of Care Code Est Patient Level 1 Diagnoses Current use of anticoagulant therapy Z79.01 Assessment & Plan Assessment & Plan (1) Current use of anticoagulant therapy: Code(s): Z79.01 - tank terminal gauger (current) use of anticoagulants Category: Medical
--- OUTSIDE RECORDS SUMMARY | 2024-08-18 11:02 | XMS_ITS | Clinical Summary ---
Author Organization [facility] Address [address] [place] [address] Care Team Providers Care Electronic Die Maker Name Role Phone Dean Vaughn MD Primary Care Provider Social History Tobacco Use Types Packs/Day Years Used Date Smoking Tobacco: Never Assessed Sex and Gender Information Value Date Recorded Sex Assigned at Not on file Gender Identity Not on file Sexual Orientation Not on file Plan of Treatment Health Maintenance Due Date Last Done Comments Hepatitis C Virus Screening 1963 HIV Screening 1976 DTaP/Tdap/Td Vaccines (1 - Tdap) 1982 Colonoscopy 2008 Pneumococcal Vaccines 50+ (1 of 1 - PCV) 2013 Zoster (Shingles) Vaccine (1 of 2) 2013 Influenza Vaccine 01/24/2024 COVID-19 Vaccine ( - 2023-2 5 season) 2024 RSV Vaccine 60 years and old er and Patients (1 - 1-dose 75+ series) 2038 Hepatitis B Vaccines Aged Out No long er eligible based on patient's age to complete this topic Pneumococcal Vaccine: Pediat denise (0-5 Years) and At-Risk Patients (6 to 49 Years) Aged Out No longer eligible b ased on patient's age to complete this topic Care Teams Electronic Die Maker Relationship Specialty Start Date End Date Dean Vaughn MD [address] [place] [address] [place] [id number] PCP - General 08/21/22
--- OUTSIDE RECORDS SUMMARY | 2024-08-18 11:02 | XMS_ITS | Clinical Summary ---
Author Organization [facility] Address [address] [place] [address] Care Team Providers Care Qual Research Manager Name Role Phone Unavailable Primary Care Provider Unavailabl e Social History Tobacco Use Types Packs/Day Years Used Date Smoking Tobacco: Never Assessed Sex and Gender Information Value Date Recorded Sex Assigned at Not on file Gender Identity Not on file Sexual Orientation Not on file Job Start Date Occupation Industry Not on file Not on file Not on file Plan of Treatment Health Maintenance Due Date Last Done Comments Hepatitis C Screening 1965 COVID-19 Vaccine (#1) 01/06/1964 Depression Screening 1975 Preventative Health Evaluation 1981 DTap / Tdap / Td (1 - Tdap) 1982 Colon Cancer Screening (Colonoscopy) 2008 Shingrix-Zoster Vaccine (1 of 2) 2013 Influenza Vaccine (#1) 2024 RSV Adult > 60+ Yrs or Pregn ant (1 - 1-dose 75+ series) 2038 Hepatitis B Vaccines Aged Out No long er eligible based on patient's age to complete this topic Pneumococcal Vaccine Aged Out No long er eligible based on patient's age to complete this topic RSV Ped < 20 months Aged Out No longe r eligible based on patient's age to complete this topic
== END 2024-08-18 10:22 | disposition home or self-care (01) ==
LOC: HO.ACS 09:59
PROVIDERS: PCP Internal Medicine; Visit Provider Internal Medicine
DX: Z79.01 Long term (current) use of anticoagulants (principal)

== ENCOUNTER → 2024-08-18 09:59 | Outpatient (BNVA) | payer BC, SELFPAY | PROVIDERS: PCP Internal Medicine; Visit Provider Internal Medicine | DX: I26.99 Other pulmonary embolism without acute cor pulmonale (principal); Z79.01 Long term (current) use of anticoagulants; Z51.81 Encounter for therapeutic drug level monitoring | CPT/HCPCS: 85610; 99211 ==

== ENCOUNTER 2024-09-15 09:28 | Outpatient (AMB) | payer BC, SELFPAY ==
[2024-09-15 09:45] LABS: Prothrombin Time Whole Bld POC 39.3 sec (11.1-13.5); ~PT, ~INR - Anti Coag Clinic 3.3 (0.9-1.1)
--- NOTE | 2024-09-15 09:54 | MHC.OFFVISCO ---
Intake Intake Visit Reasons: Anticoagulation Allergies No Known Allergies Allergy (Verified 09/15/24 09:40) Medication List - Last Reconciled 09/15/24 by Elba Foote, RN cholecalciferol (vitamin D3) 50 mcg PO DAILY ferrous sulfate (Iron (ferrous sulfate)) 325 mg PO DAILY psyllium husk (Metamucil) 2 tsp PO DAILY vitamin B complex (B Complex-Vitamin B12 tablet) 1 tab PO DAILY warfarin 5 mg See Protocol PO DAILY Nursing Note INR: 3.3?out of therapeutic range of 2-3 Pt back from vacation and was off his usual diet Medications and supplements reviewed Patient status: feels well Medications or supplements: no change Diet: as above Denies any signs and symptoms of bleeding or clotting or unusual bruising Bleeding, bruising, clotting discussed Nutritional guidance given: to have a serving of greens today Dose: 7.5mg X 4 days and 5mg X 3 days (Mon, Wed & Fri) F/U INR Date : 5 weeks?? Patient verbalizing understanding of instructions given. Coding Level of Care Code Est Patient Level 1 Diagnoses Current use of anticoagulant therapy Z79.01 Assessment & Plan Assessment & Plan (1) Current use of anticoagulant therapy: Code(s): Z79.01 - rat exterminator (current) use of anticoagulants Category: Medical
== END 2024-09-15 09:56 | disposition home or self-care (01) ==
LOC: HO.ACS 09:28
PROVIDERS: PCP Internal Medicine; Visit Provider Internal Medicine Medical Oncology
DX: Z79.01 Long term (current) use of anticoagulants (principal)

== ENCOUNTER → 2024-09-15 09:28 | Outpatient (BNVA) | payer BC, SELFPAY | PROVIDERS: PCP Internal Medicine; Visit Provider Internal Medicine Medical Oncology | DX: I26.99 Other pulmonary embolism without acute cor pulmonale (principal); Z51.81 Encounter for therapeutic drug level monitoring; Z79.01 Long term (current) use of anticoagulants | CPT/HCPCS: 85610; 99211 ==

== ENCOUNTER 2024-10-20 09:45 | Outpatient (AMB) | payer BC, SELFPAY ==
[2024-10-20 09:53] LABS: ~PT, ~INR - Anti Coag Clinic 2.7 (0.9-1.1)
--- NOTE | 2024-10-20 10:02 | MHC.OFFVISCO ---
Intake Intake Visit Reasons: Anticoagulation Allergies No Known Allergies Allergy (Verified 10/20/24 09:47) Medication List - Last Reconciled 10/20/24 by Elba Foote, RN cholecalciferol (vitamin D3) 50 mcg PO DAILY ferrous sulfate (Iron (ferrous sulfate)) 325 mg PO DAILY psyllium husk (Metamucil) 2 tsp PO DAILY vitamin B complex (B Complex-Vitamin B12 tablet) 1 tab PO DAILY warfarin 5 mg See Protocol PO DAILY Nursing Note INR: 2.7 in therapeutic range of 2-3 Medications and supplements reviewed No changes in health, diet, medications, or supplements, Denies any signs and symptoms of bleeding or bruising or clotting. Bleeding, bruising, clotting discussed Nutritional guidance given Dose: 7,5mg X 4 days and 5mg X 3 days (M/W/F) F/U INR: 5 days Patient verbalizes understanding of instructions given Coding Level of Care Code Est Patient Level 1 Diagnoses Current use of anticoagulant therapy Z79.01 Assessment & Plan Assessment & Plan (1) Current use of anticoagulant therapy: Code(s): Z79.01 - termite helper (current) use of anticoagulants Category: Medical
--- OUTSIDE RECORDS SUMMARY | 2024-10-20 11:00 | XMS_ITS | Clinical Summary ---
Author Organization [facility] Address [address] [place] [address] Care Team Providers Care Quality Control Technician Name Role Phone Unavailable Primary Care Provider [...]
--- OUTSIDE RECORDS SUMMARY | 2024-10-20 11:00 | XMS_ITS | Clinical Summary ---
Author Organization [facility] Address [address] [place] [address] Care Team Providers Care Core Composer Machine Tender Name Role Phone Dean Vaughn MD Primary Care Provider [phone] Social History Tobacco Use Types Packs/Day Years Used Date Smoking Tobacco: Never Assessed Sex and Gender Information Value Date Recorded Sex Assigned at Not on file Legal Sex Male 10:11 PM EST Gender Identity Not on file Sexual Orientation Not on file Plan of Treatment Health Maintenance Due Date Last Done Comments Hepatitis C Virus Screening 1963 HIV Screening 1976 DTaP/Tdap/Td Vaccines (1 - Tdap) 1982 Colonoscopy 2008 Pneumococcal Vaccines 50+ (1 of 1 - PCV) 2013 Zoster (Shingles) Vaccine (1 of 2) 2013 Influenza Vaccine 01/24/2024 COVID-19 Vaccine (1 - 2023-2 5 season) 2024 RSV Vaccine 60 years and old er and Patients (1 - 1-dose 75+ series) 2038 Hepatitis B Vaccines Aged Out No long er eligible based on patient's age to complete this topic Insurance [facility] - O Care Teams Core Composer Machine Tender Relationship Specialty Start Date End Date Dean Vaughn MD [address] [place] [address] [place] [id number] PCP - General 08/21/22
== END 2024-10-20 10:09 | disposition home or self-care (01) ==
LOC: HO.ACS 09:45
PROVIDERS: PCP Internal Medicine; Visit Provider Internal Medicine Medical Oncology
DX: Z79.01 Long term (current) use of anticoagulants (principal)

== ENCOUNTER → 2024-10-20 09:45 | Outpatient (BNVA) | payer BC, SELFPAY | PROVIDERS: PCP Internal Medicine; Visit Provider Internal Medicine Medical Oncology | DX: I26.99 Other pulmonary embolism without acute cor pulmonale (principal); Z51.81 Encounter for therapeutic drug level monitoring; Z79.01 Long term (current) use of anticoagulants | CPT/HCPCS: 85610; 99211 ==

== ENCOUNTER 2024-11-24 09:47 | Outpatient (AMB) | payer BC, SELFPAY ==
[2024-11-24 09:59] LABS: Prothrombin Time Whole Bld POC 30.3 sec (11.1-13.5); ~PT, ~INR - Anti Coag Clinic 2.5 (0.9-1.1)
--- NOTE | 2024-11-24 10:08 | MHC.OFFVISCO ---
Intake Intake Visit Reasons: Anticoagulation Allergies No Known Allergies Allergy (Verified 11/24/24 09:53) Medication List - Last Reconciled 11/24/24 by Marybeth Bartlett, RN cholecalciferol (vitamin D3) 50 mcg PO DAILY ferrous sulfate (Iron (ferrous sulfate)) 325 mg PO DAILY psyllium husk (Metamucil) 2 tsp PO DAILY vitamin B complex (B Complex-Vitamin B12 tablet) 1 tab PO DAILY warfarin 5 mg See Protocol PO DAILY Nursing Note INR: 2.5 in therapeutic range Medications and supplements reviewed No changes in diet, medications, or supplements, pt has an abd hernia that is small and being monitored - no surgical intervention necessary at this time Denies any signs and symptoms of bleeding or bruising or clotting. Bleeding, bruising, clotting discussed Nutritional guidance given Dose: 5mg x 3 days/ 7.5mg x 4 days F/U INR: 1 month after return from [place] Patient verbalizes understanding of instructions given Coding Level of Care Code Est Patient Level 1 Diagnoses Current use of anticoagulant therapy Z79.01 Assessment & Plan Assessment & Plan (1) Current use of anticoagulant therapy: Code(s): Z79.01 - halfway (current) use of anticoagulants Category: Medical
--- OUTSIDE RECORDS SUMMARY | 2024-11-24 10:32 | XMS_ITS | Clinical Summary ---
Author Organization [facility] Address [address] [place] [address] Care Team Providers Care Line Maintenance Name Role Phone Unavailable Primary Care Provider [...]
== END 2024-11-24 10:11 | disposition home or self-care (01) ==
LOC: HO.ACS 09:47
PROVIDERS: PCP Internal Medicine; Visit Provider Internal Medicine Medical Oncology
DX: Z79.01 Long term (current) use of anticoagulants (principal)

== ENCOUNTER → 2024-11-24 09:47 | Outpatient (BNVA) | payer BC, SELFPAY | PROVIDERS: PCP Internal Medicine; Visit Provider Internal Medicine Medical Oncology | DX: I26.99 Other pulmonary embolism without acute cor pulmonale (principal); Z79.01 Long term (current) use of anticoagulants; Z51.81 Encounter for therapeutic drug level monitoring | CPT/HCPCS: 85610; 99211 ==

== ENCOUNTER 2025-01-12 09:35 | Outpatient (REF) | payer BC, SELFPAY ==
[2025-01-12 10:16] LABS: INTERNATIONAL NORM RATIO 4.3 (0.9-1.1); Prothrombin Time 49.3 SEC (10.9-12.4)
== END 2025-01-12 09:36 | disposition home or self-care (01) ==
LOC: HO.LAB 09:35
PROVIDERS: PCP Internal Medicine; Visit Provider Internal Medicine Medical Oncology
DX: Z51.81 Encounter for therapeutic drug level monitoring (principal); Z79.01 Long term (current) use of anticoagulants
CPT/HCPCS: 36415; 85610; 99212

== ENCOUNTER 2025-01-12 09:35 | Outpatient (AMB) | payer BC, SELFPAY ==
[2025-01-12 09:51] LABS: Prothrombin Time Whole Bld POC 63.0 sec (11.1-13.5); ~PT, ~INR - Anti Coag Clinic 5.3 (0.9-1.1)
--- NOTE | 2025-01-12 10:01 | MHC.OFFVISCO ---
Intake Intake Visit Reasons: Anticoagulation Allergies No Known Allergies Allergy (Verified 01/12/25 09:44) Medication List - Last Reconciled 01/12/25 by Elba Foote, RN cholecalciferol (vitamin D3) 50 mcg PO DAILY ferrous sulfate (Iron (ferrous sulfate)) 325 mg PO DAILY psyllium husk (Metamucil) 2 tsp PO DAILY vitamin B complex (B Complex-Vitamin B12 tablet) 1 tab PO DAILY warfarin 5 mg See Protocol PO DAILY Nursing Note INR: 5.3 by POC?out of therapeutic range of 2-3 Pt sent to lab for venous draw verification Lab results: 4.3 Medications and supplements reviewed Patient status: feels well, just came back from a vacation to [facility]. Pt states he did have some wine out of his usual consumption. Medications or supplements: no changes Diet: a little different with his travels overseas. Denies any signs and symptoms of bleeding or clotting or unusual bruising Bleeding, bruising, clotting discussed. Pt aware to watch for blood in urine or dark stools. He knows he should go to ER for Ct scan if he hits his head. Nutritional guidance given: to have a serving of broccoli or spinach or another green vegetable as discussed. Food list reviewed. Dose: hold today's dose of 5mg and decrease tomorrow's dose to 5mg (usual 7.5mg) then follow usual dose of 7.5mg X 4 days and 5mg X 3 days (M/W/F) F/U INR Date: 1 week Patient verbalizing understanding of instructions given. 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
--- OUTSIDE RECORDS SUMMARY | 2025-01-12 10:09 | XMS_ITS | Clinical Summary ---
Author Organization [facility] Address [address] [place] [address] Care Team Providers Care Grease Worker Name Role Phone Unavailable Primary Care Provider [...] (1 of 2) 2013 Influenza Vaccine (#1) 2025 RSV Adult > 60+ Yrs or Pregn [...]
--- OUTSIDE RECORDS SUMMARY | 2025-01-12 10:09 | XMS_ITS | Patient Health Record ---
Author Organization [facility] Address [address] [place] [address] Care Team Providers Care Framing Consultant Name Role Phone Dean Vaughn Primary Care Provider Unavailabl e Black, Lala Unavailable [phone] Reason For Referral No Information Medications Medication SIG (Take, Route, Frequency, Duration) Notes Start Date End Date Status Night Splint AFO - L1930 as directed 04/03/2017 Active Iron Active Warfarin Sodium Acti ve Multivitamin Active Social History Tobacco Use: Social History Observation Description Date Details (start date - stop date) Never Smoker NA - NA Tobacco Use/Smoking Question Answer Notes Are you a: nonsmoker Additional Findings: Tobacco Non-User Current no n-smoker Alcohol Screen Question Answer Notes Did you have a drink containing alcohol in the p ast year? Yes Points 0 Interpretation Negative Tobacco use other than smoking: Question Answer Notes Are you an other tobacco user? 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) Active confirmed Problem Cavus deformity (1082583) Cavus deformity (Q66.7) Active confirmed Plan Of Treatment Pending Test Test Name Order Date X ray : Foot, left 3V 04/03/2017 Insurance Providers Payer Name Payer Address Payer Phone Subscriber Number Group Number Insured Name Patient Relationship to Insured Coverage Start Date Coverage End Date [facility] [address] [place] [address] [phone] [id number] Efren Matute Self - patient is the insured Medical (General) History Medical History History ICD Code Chron's/ Colitis Chicken pox Surgical History Surgery Date(Month/Year) Coloplast- Stoma placement 12/2007
--- OUTSIDE RECORDS SUMMARY | 2025-01-12 10:09 | XMS_ITS | Clinical Summary ---
Author Organization [facility] Address [address] [place] [address] Care Team Providers Care Toll Service Observer Name Role Phone Dean Vaughn MD Primary Care Provider [phone] Social History Tobacco Use Types Packs/Day Years [...] Zoster (Shingles) Vaccine (1 of 2) 2013 COVID-19 Vaccine ( - 2023-2 5 season) 2024 Influenza Vaccine 01/23/2025 RSV Vaccine 60 years and old er and Patients (1 - 1-dose 75+ series) 2038 Hepatitis B Vaccines Aged Out No long er eligible based on patient's age to complete this topic Insurance [facility] - O Care Teams Toll Service Observer Relationship Specialty Start Date End Date Dean Vaughn MD [address] [place] [address] [place] [id number] PCP - General 08/21/22
--- OUTSIDE RECORDS SUMMARY | 2025-01-12 10:09 | XMS_ITS | Clinical Summary ---
Author Organization [facility] Address [address] [place] [address] Phone Care Team Providers Care Briquette Machine Operator Helper Name Role Phone Marcellus Austin MD Primary Care Provider [phone] Marcellus Austin MD Unavailable Allergies No known active allergies Medications b complex vitamins capsule Take 1 capsule by mouth. Active iron 18 mg Tab Take 18 mg by mouth. Active cholecalciferol , vitamin D3, (VITAMIN D3 ORAL) Take by mouth. Active warfarin (COUMADIN) 5 MG tabletIndicatio ns:Thrombophili a Take 1 tablet (5 mg total) by mouth daily. Continue to titrate dose to achieve INR of 2.0-3.0. 90 tablet 3 03/31/2024 Active Active Problems Problem Noted Date Diagnosed Date Gross hematuria 04/28/2024 Assessment & Plan (04/28/2024 10:54 AM EST): Exam is negative for acute pathology. Will obtain a urine sediment today and send the patient for ultrasound evaluation for nephrolithiasis and bladder stones. That is nonurgent given paucity of symptoms. Thrombophilia 04/28/2024 Routine general medical exam ination at a health care facility 03/31/2024 Assessment & Plan (03/31/2024 9:29 AM EDT): Exam positive for right sided cerumen impaction, advised the patient to get a spiral shaped clearing device that sold at the pharmacy to remove the bulk of the wax and then insert 5 drops of hydroperoxide and let sit for about 20 minutes. The left ear is fine. The rest of the exam was without pathology. He has a little bit of acne on his back. Last time we checked his cholesterol was a little bit elevated but he was not fasting and it came back. Will check fasting labs today a lipid profile and electrolyte panel given the ileostomy. Went over the other labs from September and we can repeat labs on his physical next year. The rest of his exam is unremarkable, the area around the ileostomy nontender. He is not currently seeing a specialist. The INRs he is doing through the Coumadin clinic. His INRs are stable. I filled out some paperwork for [facility] elderly care that certifies that he is able to take care of of household members that are under the protection of the [facility]. S/P ileostomy 09/24/2023 Assessment & Plan (09/24/2023 3:58 PM EDT): This is a 45-minute establish care and follow-up for ileostomy. I am okay with providing the patient his medical supplies for the ileostomy. [facility] [employer] ileostomy stoma pouches SANJUANITA [id number] Quarter inch-2-1/2 inches 19-64 mm 1 box/month with 20 pack inside them. Also [employer] by [facility] 2 ounces to tubes per month equals 4 ounces. 25 minutes of ipdy-cp-uvye time and 20 minutes of chart review. 45-minute visit. 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 Neuro: # pain - tylenol PRN #Insomnia - Seroquel standing and prn nightly #left tongue deviation: initially noted 09/04 + subtle right pronation (no drift) - neuro consulted, f/u recs - MRI brain/ MRA head and neck ordered - TSH, ESR, CRP, HgA1c and lipid panel ordered HENT - ongoing dysphonia (per spouse, pt is a soft spoken person at baseline and normally has hoarse voice) - laryngeal service consulted 09/04. 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 Findings concerning for iatrogenic tear within the SVC wall during contrast injection through central line. No hemopericardium on immediate post injection images. - Line removed without complication on 08/30 #afib RVR --now SR - initially developed Afib iso multipressor shock - cardiology consulted - s/p amio gtt - cont PO amio 200mg qd - planned for total 4 weeks (end 09/22) HFrEF - Per previous cards recs: should be started on GDMT once stable from the surgical standpoint GI: # bowel perforation # s/p emergent laparotomy for incarcerated parastomal hernia 08/21 @ [facility] # s/p emergent repeat exploratory laparotomy 08/21 # s/p OR 08/24 for partial closure. Final closure: 08/26/22 - ileostomy - on imodium and metamucil - s/p IR drainage of perihepatic collection drain placement - Patient will return to IR approximately 3 weeks after discharge for CT and drain injection #Nutrition - TF at goal 50cc/hr - SECURITY DELIVERY SPECIALIST following: FEES performed 09/04, recommend to stay NPO but ok for ice chips with supervision Renal: - gamez - FWB: 200ml q4h Heme: #Hx PE, heterozygous factor 2 mutation: on coumadin as outpatient, has IVC filter #Possible LAE clot - stop heparin gtt today --- 09/05 start therapeutic lovenox ID: # bowel perforation - s/p zosyn from OSH (08/21) - s/p ceftriaxone (08/24- 08/25) - s/p vanc (08/21 - 08/24), (09/01 -09/02) - cefepime(08/21 - 08/24) (08/25- ) - metronidazole (08/21 - ) - fluconazole (08/21 - ) - fever: f/u cultures from 09/04 Endocrine: - RISS ? Dispo: PT recommending inpatient rehab ----- not medically ready for discharge Code Status: Full Code Assessment & Plan (09/05/2022 3:05 PM EDT): A/P: 57 yo M with PMH of heterozygous mutation for factor II, multiple PE (2005, 2006) s/p IVC filter, ulcerative colitis s/p total colectomy with permanent right-sided end ileostomy (done about 15 years ago at [facility]) admitted to OSH with worsening abdominal pain, a blocked stoma , and bloating found to have lg pneumoperitoneum s/p laparotomy, extensive lysis of adhesions, takedown of incarcerated small bowel in parastomal hernia, two-layer primary repair of small bowel perforation, repair of iatrogenic small bowel injury, re-siting of end ileostomy to RUQ. Neuro: # pain - tylenol PRN #Insomnia - Seroquel standing and prn nightly #left tongue deviation: initially noted 09/04 + subtle right pronation (no drift) - neuro consulted, f/u recs - MRI brain/ MRA head and neck ordered - TSH, ESR, CRP, HgA1c and lipid panel ordered HENT - ongoing dysphonia (per spouse, pt is a soft spoken person at baseline and normally has hoarse voice) - laryngeal service consulted 09/04. 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 Findings concerning for iatrogenic tear within the SVC wall during contrast injection through central line. No hemopericardium on immediate post injection images. - Line removed without complication on 08/30 #afib RVR --now SR - initially developed Afib iso multipressor shock - cardiology consulted - s/p amio gtt - cont PO amio 200mg qd - planned for total 4 weeks (end 09/22) HFrEF - Per previous cards recs: should be started on GDMT once stable from the surgical standpoint GI: # bowel perforation # s/p emergent laparotomy for incarcerated parastomal hernia 08/21 @ [facility] # s/p emergent repeat exploratory laparotomy 08/21 # s/p OR 08/24 for partial closure. Final closure: 08/26/22 - ileostomy - on imodium and metamucil - s/p IR drainage of perihepatic collection drain placement - Patient will return to IR approximately 3 weeks after discharge for CT and drain injection #Nutrition - TF at goal 50cc/hr - SECURITY DELIVERY SPECIALIST following: FEES performed 09/04, recommend to stay NPO but ok for ice chips with supervision Renal: - gamez - FWB: 200ml q4h Heme: #Hx PE, heterozygous factor 2 mutation: on coumadin as outpatient, has IVC filter #Possible LAE clot - stop heparin gtt today --- 09/05 start therapeutic lovenox ID: # bowel perforation - s/p zosyn from OSH (08/21) - s/p ceftriaxone (08/24- 08/25) - s/p vanc (08/21 - 08/24), (09/01 -09/02) - cefepime(08/21 - 08/24) (08/25- ) - metronidazole (08/21 - ) - fluconazole (08/21 - ) - fever: f/u cultures from 09/04 Endocrine: - RISS ? Dispo: PT recommending inpatient rehab ----- not medically ready for discharge Code Status: Full Code Encounters Date Type Department Care Team Description 11/03/2024 1:00 PM EDT Office Visit [facility] [address], [address] [place] [id number] Carmine Perez MBBS Ventral hernia without obstruction or gangrene (Primary Dx) from Last 3 Months Immunizations Immunization Administration Dates Next Due Influenza Quadrivalent MDCK Preservative Free IM 03/15/2019,04/17/2018 Influenza Quadrivalent Prese rvative Free IM 10/12/2022(Deferred: Patient Refused) PPD Test 03/22/2021, 9,04/21/2019,09/18 Pneumococcal polysaccharide PPSV23 10/23/2005 Tdap 12/10/2014 Social History Tobacco Use Types Packs/Day Years Used Date Smoking Tobacco: Never Smokeless Tobacco: Never Tobacco Cessation:Counseling Given: Not Answered Alcohol Use Standard Drinks/Week Comments Yes 2 (1 standard drink = 0.6 oz pur e alcohol) 1-2 drinks, 2-3 x week Child or Family Care Answer Date Record ed Do you have problems with on e of the following making it difficult for you to work, study, or receive health care? No 09/23/2023 Education Answer Date Recorded Are you interested in help w ith more adult education (for example, completing high school, GED, job training, learning the [place] language, technical skills, or developing parenting skills)? No 09/23/2023 Are you concerned about learning? Not on file 09/23/2023 No 09/23/2023 Yes 09/23/2023 Food Answer Date Recorded Within the past 6 months we worried whether our food would run out before we got money to buy more. Never True 09/23/2023 Within the past 6 months the food we bought just didn't last and we didn't have enough money to get more. Never True Residential Stability Answer Date Recor ded What is your housing situation today? I have román sing 09/23/2023 How many times have you move d in the past 12 months? Zero (I did not move) 09/23/2023 Paying for Meds Answer Date Recorded Do you have trouble paying for medicines? No 09/23/2023 Paying Utility Bills Answer Date Record ed Do you have trouble paying your heating or elect ricity bill? No 09/23/2023 Transportation Answer Date Recorded Has the lack of transportati on kept you from medical appointments or from getting medications? No 09/23/2023 Digital Access Answer Date Recorded No 09/23/2023 Yes 09/23/2023 Do you have reliable internet access at home? Ye s 09/23/2023 Do you have a device (e.g., phone, tablet, computer) with a working camera? Yes 09/23/2023 Intimate Partner Violence Answer Date R ecorded Denied Basic Needs Not on file 03/30/2024 In the past 12 months have y ou been in a relationship with a person who hurts, threatens, or tries to control you? No 03/30/2024 Worried food would run out Not on file 03/30 In the past 12 months have y ou been in a relationship with a person who hurts, threatens, or tries to control you? No 03/30/2024 Sex and Gender Information Value Date Recorded Sex Assigned at Male 07/23/2023 1:54 PM EST Legal Sex Male 9:43 PM EDT Gender Identity Male 07/23/2023 1:54 PM EST Sexual Orientation Straight 07/23/2023 1: 54 PM EST Last Filed Vital Signs Vital Sign Reading Time Taken Comments Blood Pressure 124/87 11/03/2024 12:44 PM EDT Pulse 79 11/03/2024 12:44 PM EDT Temperature 36.6 C (97.9 F) 11/03/2024 12:44 PM EDT Respiratory Rate 18 11/03/2024 12:44 PM EDT Oxygen Saturation 98% 11/03/2024 12:44 PM EDT Inhaled Oxygen Concentration 40% 10/08/2022 1 :00 AM EDT Weight 94 kg (207 lb 3.2 oz) 11/03/2024 12:44 PM EDT Height 185.4 cm (6' 1 ) 11/03/2024 12:44 PM EDT Body Mass Index 27.34 11/03/2024 12:44 PM EDT Plan of Treatment Upcoming Encounters Date Type Department Care Team (Late st Contact Info) Description 01/28/2025 12:45 PM EDT Office Visit [facility] [address], [address] [place] [address] Carmine Perez MBBS [address] [place] [phone] [place] [phone] 04/13/2025 9:00 AM EDT Office Visit [facility] [address] [place] [address] Marcellus Austin MD [address] [place] [address] [email or web address] Health Maintenance Due Date Last Done Comments COLOGUARD 2008 COLONOSCOPY 2008 COLORECTAL CANCER SCREENING 2008 FIT TEST 2008 FOBT 2008 SIGMOIDOSCOPY 2008 VIRTUAL COLONOSCOPY 2008 PNEUMOCOCCAL VACCINES (50+ years) (2 of 2 - PCV) 2013 10/23/2005 ZOSTER VACCINES (1 of 2) 2013 COVID-19 VACCINE (3 - 2023-2 5 season) 2024 06/02/2021, 11/11/2020 Adult Td,Tdap Booster 12/10/2024 12/10/2014 DEPRESSION SCREENING 03/30/2025 03/30/2024 SCREENING FOR DIABETES 10/08/2026 , 10/11/2022 LIPID PANEL 03/31/2029 03/31/2024, 10/08/2023, 09/05/2022 RSV VACCINE (1 - 1-dose 75+ series) 2038 HEPATITIS C SCREENING Completed 10/08/2023 HIV ONE-TIME SCREENING (18-6 5 YEARS) Completed 10/08/2023 SMOKING STATUS SCREENING (On ce After 26 Yrs) Completed 11/03/2024 HEPATITIS A VACCINES Aged Out No long er eligible based on patient's age to complete this topic HIB VACCINES Aged Out No longer eligi ble based on patient's age to complete this topic MENINGOCOCCAL VACCINES (ACWY) Aged Out No longer eligible based on patient's age to complete this topic MENINGOCOCCAL VACCINES (B) Aged Out N o longer eligible based on patient's age to complete this topic Medical Devices Implanted Type Area Yarn Mercerizer Operator Helper Device Identifier Shelf Expiration Date Model / Serial / Lot Ivc Filter Description:Gonzales Saeed ble IVC filter 01/07/07 - in Test Director - Conditional to 1.5T, Normal Mode - [id number] 09/08/22 Procedures Procedure Name Priority Date/Time Associated Diagnosis Comments LIPID PANEL Routine 03/31/2024 10:42 AM EDT Routine general medical examination at a health care facility HEPATITIS C ANTIBODY, QUALITATIVE Routine 10/08/2023 8:55 AM EDT Need for hepatitis C screening test from Last 3 Months or Most Recently Relevant to Health Maintenance Results * (ABNORMAL) Lipid panel (03/31/2024 10:42 AM EDT) HDL 61 mg/dL [facility] Comment: Interpretation <40 mg/dL: Low HDL cholesterol (major risk factor for CHD) Greater than or equal to 60 mg/dL: High HDL cholesterol ( negative risk factor for CHD) HDL - cholesterol is affected by a number of factors, e.g. smoking, excerise, hormones, sex and age. CHOLESTEROL 272(H) 0 - 240 mg/dL [facility] TRIGLYCERIDES 308(H) 30 - 160 mg/dL [facility] LDL 149(H) 50 - 129 mg/dL [facility] Comment: LDL levels in terms of risk for coronary heart disease: <100 mg/dL: Optimal 100-129 mg/dL: Near or above optimal 130-159 mg/dL: Borderline high 160-189 mg/dL: High >190 mg/dL: Very High CARDIAC RISK RATIO 4.5 3.4 - 5.0 C [facility] Blood 03/31/2024 10:4 2 AM EDT 03/31/2024 10:45 AM EDT us Marcellus Austin MD LAB BLOOD ORDERABLES Final Resul t Performing Organization Address City/[facility]/ZIP Co de Phone Number [address] [address] * Hepatitis C antibody, qualitative (10/08/2023 8:55 AM EDT) HCV NON-REACTIV E NON-REACTI VE [facility] Blood 10/08/2023 8:55 AM EDT 10/08/2023 8:58 AM EDT Marcellus Austin MD LAB BLOOD ORDERABLES Final Resul t Performing Organization Address City/[facility] Co de Phone Number [address] [address] from Last 3 Months or Most Recently Relevant to Health Maintenance Insurance [facility] Advance Directives For more information, please contact: [phone] (9AM - 5PM [facility], Sunday-Sunday) Documents on File Type Date Recorded Patient Store Clerk Expl anation Healthcare Proxy 09/15/2022 4:51 PM * Full Code (Latest Code Status on File) Date Activated Date Inactivated Comments 09/14/2022 2:07 PM Question Answer Comments Code Status Confirmed With: Patient * Full Code Date Activated Date Inactivated Comments 08/22/2022 2:21 PM 09/14/2022 2:07 PM Question Answer Comments Code Status Confirmed With: Patient * Full Code Date Activated Date Inactivated Comments 08/21/2022 7:18 AM 08/22/2022 2:21 PM Question Answer Comments Code Status Confirmed With: Patient Code Status Communicated To: Inpatient Attending Care Teams Briquette Machine Operator Helper Relationship Specialty Start Date End Date Marcellus Austin MD [address] [place] [address] PCP - General Internal Medicine 09/25/23 Marcellus Austin MD [address] [place] [address] Insurance Assigned Provider 03/01/24 Additional Source Comments The information contained in this document represents components of the legal health record. It is not the complete legal health record.[facility]
--- OUTSIDE RECORDS SUMMARY | 2025-01-12 10:10 | XMS_ITS ---
Author Name [facility] Organization Unknown Encounters Encounter Type Encounter Reason Primary Diagnosis Location Date Ambulatory ABDOMINAL OBSTRUCTION [facility] [employer] 08/21/2022 Care Team Organization Name Specialty Phone Email Start Date End Da te [facility] KHADIJAH VAUGHN Primary Care 08/22/2022 [facility] Khadijah Vaughn Primary Care 08/21/2022 08/21/19 23
== END 2025-01-12 10:32 | disposition home or self-care (01) ==
LOC: HO.ACS 09:35
PROVIDERS: PCP Internal Medicine; Visit Provider Internal Medicine Medical Oncology
DX: Z79.01 Long term (current) use of anticoagulants (principal)

== ENCOUNTER 2025-01-19 10:08 | Outpatient (AMB) | payer BC, SELFPAY ==
[2025-01-19 10:25] LABS: Prothrombin Time Whole Bld POC 29.8 sec (11.1-13.5); ~PT, ~INR - Anti Coag Clinic 2.5 (0.9-1.1)
--- NOTE | 2025-01-19 10:27 | MHC.OFFVISCO ---
Intake Intake Visit Reasons: Anticoagulation Allergies No Known Allergies Allergy (Verified 01/19/25 10:21) Medication List - Last Reconciled 01/19/25 by Elba Foote, RN cholecalciferol (vitamin D3) 50 mcg PO DAILY ferrous sulfate (Iron (ferrous sulfate)) 325 mg PO DAILY psyllium husk (Metamucil) 2 tsp PO DAILY vitamin B complex (B Complex-Vitamin B12 tablet) 1 tab PO DAILY warfarin 5 mg See Protocol PO DAILY Nursing Note INR: 2.5 in therapeutic range of 2-3 Medications and supplements reviewed No changes in health, diet, medications, or supplements, Denies any signs and symptoms of bleeding or bruising or clotting. Bleeding, bruising, clotting discussed Nutritional guidance given Dose: 7.5mg X 4 days and 5mg X 3 days (Mon/Wed/Fri) F/U INR: 4 weeks Patient verbalizes understanding of instructions given Coding Level of Care Code Est Patient Level 1 Diagnoses Current use of anticoagulant therapy Z79.01 Assessment & Plan Assessment & Plan (1) Current use of anticoagulant therapy: Code(s): Z79.01 - moth exterminator (current) use of anticoagulants Category: Medical
--- OUTSIDE RECORDS SUMMARY | 2025-01-19 11:08 | XMS_ITS | Clinical Summary ---
Author Organization [facility] Address [address] [place] [address] Phone Care Team Providers Care Electrician Front Name Role Phone Marcellus Austin MD Primary Care Provider [phone] Marcellus Austin MD Unavailable Allergies No known [...] to achieve INR of 2.0-3.0. 90 tablet 5 Active warfarin (COUMADIN) 5 MG tabletIndicatio ns:Thrombophili a Take 1 tablet (5 mg total) by mouth daily. Continue to titrate dose to achieve INR of 2.0-3.0. 90 tablet 3 4 01/13/20 25 Discontinu ed(Reorder ) Active Problems Problem Noted Date Diagnosed Date [...] stable. I filled out some paperwork for [facility] elderly care that certifies that he is able to take care of of household members that are under the protection of the [facility]. S/P ileostomy 09/24/2023 Assessment & Plan (09/24/2023 3:58 PM EDT): This is a 45-minute establish care and follow-up for ileostomy. I am okay with providing the patient his medical supplies for the ileostomy. [facility] Active Life ileostomy stoma pouches SANJUANITA [id number] Quarter inch-2-1/2 inches 19-64 mm 1 box/month with 20 pack inside them. Also [facility] 2 ounces to tubes per month equals 4 ounces. 25 minutes of [id number]-yr-wdfr time and 20 minutes of chart review. 45-minute visit. 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, ulcerative colitis s/p total colectomy with permanent right-sided end ileostomy (done about 15 years ago at [facility]) admitted to OSH with worsening [...] #Nutrition - TF at goal 50cc/hr - MIXED LIVESTOCK FARMER following: FEES performed 09/04, recommend to stay [...] ileostomy (done about 15 years ago at [facility]) admitted to OSH with worsening [...] #Nutrition - TF at goal 50cc/hr - MIXED LIVESTOCK FARMER following: FEES performed 09/04, recommend to stay [...] Encounters Date Type Department Care Team Description 01/13/2025 Orders Only [facility] Internal Medicine [address] [place] [address] Alfredo Anderson MD 01/12/2025 Refill [facility] Internal Medicine [address] [place] [address] Marcellus Austin MD Medication Refill 11/03/2024 1:00 PM EDT Office Visit [facility] [address], [address] [place] [address] Carmine Perez MBBS Ventral hernia without obstruction or gangrene (Primary Dx) from Last 3 Months Immunizations Immunization Administration Dates Next Due Influenza Quadrivalent MDCK Preservative Free IM 03/15/2019,04/17/2018 Influenza Quadrivalent Prese rvative Free IM 10/12/2022(Deferred: Patient Refused) PPD Test 03/22/2021,,04/21/2019,09/18 Pneumococcal polysaccharide PPSV23 10/23/2005 Tdap 12/10/2014 Social [...] high school, GED, job training, learning the Maldivian language, technical skills, or developing parenting skills)? [...] Description 01/28/2025 12:45 PM EDT Office Visit [facility] [address], [address] [place] [address] Carmine Perez MBBS [address] [place] [phone] 04/13/2025 9:00 AM EDT Office Visit [facility] [place] Internal Medicine [address] [place] [address] Marcellus Austin MD [address] [place] [address] [email or web address] Health Maintenance Due Date Last Done Comments COLOGUARD 2008 COLONOSCOPY 2008 COLORECTAL CANCER SCREENING 2008 FIT TEST 2008 FOBT 2008 SIGMOIDOSCOPY 2008 VIRTUAL COLONOSCOPY 2008 PNEUMOCOCCAL VACCINES (50+ years) (2 of 2 - PCV) 2013 10/23/2005 ZOSTER VACCINES (1 of 2) 2013 COVID-19 VACCINE (2023-2 5 season) 2024 06/02/2021, 11/11/2020 Adult Td,Tdap Booster 12/10/2024 12/10/2014 DEPRESSION SCREENING 03/30/2025 03/30/2024 SCREENING FOR DIABETES 10/08/2026 4, 10/11/2022 LIPID PANEL 03/31/2029 03/31/2024, 10/08/2023, 09/05/2022 [...] this topic Medical Devices Implanted Type Area Clerical Production Worker Device Identifier Shelf Expiration Date Model / Serial / Lot Ivc Filter Description:Gonzales Retrieva ble IVC filter 01/07/07 - in Marble Setter - Conditional to 1.5T, Normal Mode - [id number] 09/08/22 Procedures Procedure Name Priority Date/Time Associated Diagnosis Comments OUTSIDE LAB Routine 01/12/2025 2:51 PM EDT LIPID PANEL Routine 03/31/2024 10:42 AM EDT Routine general medical examination at a health care facility HEPATITIS C ANTIBODY, QUALITATIVE Routine 10/08/2023 8:55 AM EDT Need for hepatitis C screening test from Last 3 Months or Most Recently Relevant to Health Maintenance Results * Outside Lab (01/12/2025 2:51 PM EDT) us Historical Provider LAB BLOOD ORDERABLES Mandy l Result * (ABNORMAL) Lipid panel (03/31/2024 10:42 AM EDT) HDL 61 mg/dL [facility] Comment: Interpretation <40 mg/dL: Low HDL cholesterol (major risk factor for CHD) Greater than or equal to 60 mg/dL: High HDL cholesterol ( negative risk factor for CHD) HDL - cholesterol is affected by a number of factors, e.g. smoking, excerise, hormones, sex and age. CHOLESTEROL 272(H) 0 - 240 mg/dL [facility] TRIGLYCERIDES 308(H) 30 - 160 mg/dL [facility] LDL 149(H) 50 - 129 mg/dL [facility] Comment: LDL levels in terms of risk for coronary heart disease: <100 mg/dL: Optimal 100-129 mg/dL: Near or above optimal 130-159 mg/dL: Borderline high 160-189 mg/dL: High >190 mg/dL: Very High CARDIAC RISK RATIO 4.5 3.4 - 5.0 C [facility] Blood 03/31/2024 10:4 2 AM EDT 03/31/2024 10:45 AM EDT Marcellus Austin MD LAB BLOOD ORDERABLES Final Resul t Performing Organization Address City/[facility]/ZIP Co de Phone Number [address] [address] * Hepatitis C antibody, qualitative (10/08/2023 8:55 AM EDT) HCV NON-REACTIV E NON-REACTI VE [facility] Blood 10/08/2023 8:55 AM EDT 10/08/2023 8:58 AM EDT Marcellus Austin MD LAB BLOOD ORDERABLES Final Resul t Performing Organization Address City/[facility]/ZIP Co de Phone Number [address] [address] from Last 3 Months or Most Recently Relevant to Health Maintenance [place] [address] Advance Directives For more information, please contact: [phone] (9AM - 5PM [facility], Sunday-Sunday) Documents on File Type Date Recorded Patient Pipefitter Welder Expl anation Healthcare Proxy 09/15/2022 4:51 PM [...] Status Communicated To: Inpatient Attending Care Teams Electrician Front Relationship Specialty Start Date End Date Marcellus Austin MD [address] [place] [address] [email or web address] PCP - General Internal Medicine 09/25/23 Marcellus Austin MD [address] [place] [address] [email or web address] Insurance Assigned Provider 03/01/24 Additional Source Comments The information contained in this document represents components of the legal health record. It is not the complete legal health record.[facility]
--- OUTSIDE RECORDS SUMMARY | 2025-01-19 11:08 | XMS_ITS | Clinical Summary ---
Author Organization [facility] Address [address] [place] [address] Care Team Providers Care Manager Cardiac Name Role Phone Unavailable Primary Care Provider [...]
--- OUTSIDE RECORDS SUMMARY | 2025-01-19 11:09 | XMS_ITS | Patient Health Record ---
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 [address] [place] [address] [phone] [id number] Efren Matute Self - patient is the insured Medical (General) History Medical History History ICD Code Chron's/ Colitis Chicken pox Surgical History Surgery Date(Month/Year) Coloplast- Stoma placement 12/2007
--- OUTSIDE RECORDS SUMMARY | 2025-01-19 11:09 | XMS_ITS | Clinical Summary ---
Author Organization [facility] Address [address] [place] [address] Care Team Providers Care Credit Risk Management Director Name Role Phone Dean Vaughn MD Primary Care Provider [phone] Social History Tobacco Use Types Packs/Day Years [...] patient's age to complete this topic Insurance [facility] - O Care Teams Credit Risk Management Director Relationship Specialty Start Date End Date Dean Vaughn MD [address] [place] [address] NAVDEEP Mitchell [id number] PCP - General 08/21/22
== END 2025-01-19 10:32 | disposition home or self-care (01) ==
LOC: HO.ACS 10:08
PROVIDERS: PCP Internal Medicine; Visit Provider Internal Medicine Medical Oncology
DX: Z79.01 Long term (current) use of anticoagulants (principal)

== ENCOUNTER → 2025-01-19 10:08 | Outpatient (BNVA) | payer BC, SELFPAY | PROVIDERS: PCP Internal Medicine; Visit Provider Internal Medicine Medical Oncology | DX: I26.99 Other pulmonary embolism without acute cor pulmonale (principal); Z79.01 Long term (current) use of anticoagulants; Z51.81 Encounter for therapeutic drug level monitoring | CPT/HCPCS: 85610; 99211 ==

== ENCOUNTER 2025-02-16 09:26 | Outpatient (AMB) | payer BC, SELFPAY ==
[2025-02-16 09:42] LABS: Prothrombin Time Whole Bld POC 48.8 sec (11.1-13.5); ~PT, ~INR - Anti Coag Clinic 4.1 (0.9-1.1)
--- NOTE | 2025-02-16 09:45 | MHC.OFFVISCO ---
Intake Intake Visit Reasons: Anticoagulation Allergies No Known Allergies Allergy (Verified 02/16/25 09:35) Medication List - Last Reconciled 02/16/25 by Elba Foote RN cholecalciferol (vitamin D3) 50 mcg PO DAILY ferrous sulfate (Iron (ferrous sulfate)) 325 mg PO DAILY psyllium husk (Metamucil) 2 tsp PO DAILY vitamin B complex (B Complex-Vitamin B12 tablet) 1 tab PO DAILY warfarin 5 mg See Protocol PO DAILY Nursing Note INR: 4.1 out of therapeutic range of 2-3 Pt states he had 2 beers yesterday Medications and supplements reviewed Patient status: feels well Medications or supplements: no changes Diet: no changes Denies any signs and symptoms of bleeding or clotting or unusual bruising Bleeding, bruising, clotting discussed Nutritional guidance given: to have a serving of greens today Dose: hold today's dose of 5mg and decrease tomorrow's dose to 5mg from 7.5mg then usual dose of 7.5mg X 4 days and 5mg X 3 days F/U INR Date: 4 weeks?since the reason for high INR is known and alcohol consumption is not typical for this pt. Patient verbalizing understanding of instructions given. Coding Level of Care Code Est Patient Level 1 Diagnoses Current use of anticoagulant therapy Z79.01 Results AMB INR Fingerstick AMB INR Fingerstick 4.1 Last Edit by Elba Foote RN on 02/16/25 09:48 interface delay Assessment & Plan Assessment & Plan (1) Current use of anticoagulant therapy: Code(s): Z79.01 - technician terminal and repeater (current) use of anticoagulants Category: Medical
--- OUTSIDE RECORDS SUMMARY | 2025-02-16 10:10 | XMS_ITS | Clinical Summary ---
Author Organization [facility] Address [address] [place] [address] Care Team Providers Care Clinic Md Associate Name Role Phone Dean Vaughn MD Primary Care Provider [phone] Social History Tobacco Use Types Packs/Day Years [...] patient's age to complete this topic Insurance [facility] - O Care Teams Clinic Md Associate Relationship Specialty Start Date End Date Dean Vaughn MD [address] [place] [address] NAVDEEP Mitchell [id number] PCP - General 08/21/22
--- OUTSIDE RECORDS SUMMARY | 2025-02-16 10:10 | XMS_ITS | Clinical Summary ---
[facility] Address [address] [place] [address] Care Team Providers Care Battery Container Finishing Hand Name Role Phone Unavailable Primary Care Provider [...]
--- OUTSIDE RECORDS SUMMARY | 2025-02-16 10:10 | XMS_ITS | Patient Health Record ---
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
--- OUTSIDE RECORDS SUMMARY | 2025-02-16 10:10 | XMS_ITS | Clinical Summary ---
Author Organization [facility] Address [address] [place] [address] Phone Care Team Providers Care Power Plant Operator Apprentice Name Role Phone Marcellus Austin MD Primary Care Provider [phone] Marcellus Austin MD Unavailable Allergies No known [...] to achieve INR of 2.0-3.0. 90 tablet 01/12/2025 Active Active Problems Problem Noted Date Diagnosed [...] stable. I filled out some paperwork for [facility] elderly care that certifies that he is able to take care of of household members that are under the protection of the [facility]. S/P ileostomy 09/24/2023 Assessment & Plan (09/24/2023 3:58 PM EDT): This is a 45-minute establish care and follow-up for ileostomy. I am okay with providing the patient his medical supplies for the ileostomy. [facility] Active Life ileostomy stoma pouches SANJUANITA [id number] Quarter inch-2-1/2 inches 19-64 mm 1 box/month with 20 pack inside them. Also Stomahesive by [facility] 2 ounces to tubes per month equals 4 ounces. 25 minutes of frot-iz-[id number] time and 20 minutes of chart review. 45-minute visit. 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 filter, ulcerative colitis s/p total colectomy with permanent right-sided end ileostomy (done about 15 years ago at [facility]) admitted to OSH with worsening abdominal pain, [...] #Nutrition - TF at goal 50cc/hr - SCHEDULING ANALYST following: FEES performed 09/04, recommend to stay [...] ileostomy (done about 15 years ago at [facility]) admitted to OSH with worsening abdominal pain, [...] #Nutrition - TF at goal 50cc/hr - SCHEDULING ANALYST following: FEES performed 09/04, recommend to stay [...] Encounters Date Type Department Care Team Description 01/28/2025 12:45 PM EDT Office Visit [facility] [address], [address] [place] [id number] Carmine Perez MBBS Ventral hernia without obstruction or gangrene (Primary Dx) 01/13/2025 Orders Only [facility] Internal Medicine [address] [place] [address] ProviderAlfredo MD 01/12/2025 Refill [facility] Internal Medicine [address] [place] [address] Marcellus Austin MD Medication Refill from Last 3 Months Immunizations Immunization Administration [...] high school, GED, job training, learning the Tanzanian language, technical skills, or developing parenting skills)? [...] Sign Reading Time Taken Comments Blood Pressure 117/81 01/28/2025 12:33 PM EDT Pulse 91 01/28/2025 12:33 PM EDT Temperature 36.9 C (98.5 F) 01/28/2025 12:33 PM EDT Respiratory Rate 18 01/28/2025 12:33 PM EDT Oxygen Saturation 96% 01/28/2025 12:33 PM EDT Inhaled Oxygen Concentration 40% 10/08/2022 1 :00 AM EDT Weight 94.5 kg (208 lb 6.4 oz) 01/28/2025 12:33 PM EDT Height 185.4 cm (6' 1 ) 01/28/2025 12:33 PM EDT Body Mass Index 27.5 01/28/2025 12:33 PM EDT Plan of Treatment Upcoming Encounters Date Type Department Care Team (Late st Contact Info) Description 04/13/2025 9:00 AM EDT Office Visit [facility] Internal Medicine [address] [place] [address] Marcellus Austin MD [address] [place] [address] [email or web address] Health Maintenance Due Date Last Done Comments [...] SCREENING (On ce After 26 Yrs) Completed 01/28/2025 HEPATITIS A VACCINES Aged Out No long [...] this topic Medical Devices Implanted Type Area Wildlife Veterinarian Device Identifier Shelf Expiration Date Model / Serial / Lot Ivc Filter Description:Gonzales Retrieva ble IVC filter 01/07/07 - in Level Vial Inspector - Conditional to 1.5T, Normal Mode - [id number] 09/08/22 Procedures Procedure Name Priority Date/Time Associated Diagnosis Comments OUTSIDE LAB Routine 01/12/2025 2:51 PM EDT LIPID PANEL Routine 03/31/2024 10:42 AM EDT Routine general medical examination at a [facility] care facility HEPATITIS C ANTIBODY, QUALITATIVE Routine 10/08/2023 8:55 AM EDT Need for hepatitis C screening test from Last 3 Months or Most Recently Relevant to Health Maintenance Results * Outside Lab (01/12/2025 2:51 PM EDT) us Historical Provider LAB BLOOD ORDERABLES Mandy l Result * (ABNORMAL) Lipid panel (03/31/2024 10:42 AM EDT) HDL 61 mg/dL [facility] Comment: Interpretation <40 mg/dL: Low HDL cholesterol (major risk factor for CHD) Greater than or equal to 60 mg/dL: High HDL cholesterol ( negative risk factor for CHD) HDL - cholesterol is affected by a number of factors, e.g. smoking, excerise, hormones, sex and age. CHOLESTEROL 272(H) 0 - 240 mg/dL [facility] TRIGLYCERIDES 308(H) 30 - 160 mg/dL [facility] LDL 149(H) 50 - 129 mg/dL [facility] Comment: LDL levels in terms of risk for coronary heart disease: <100 mg/dL: Optimal 100-129 mg/dL: Near or above optimal 130-159 mg/dL: Borderline high 160-189 mg/dL: High >190 mg/dL: Very High CARDIAC RISK RATIO 4.5 3.4 - 5.0 C [facility] Blood 03/31/2024 10:4 2 AM EDT 03/31/2024 10:45 AM EDT us Marcellus Austin MD LAB BLOOD ORDERABLES Final Resul t [address] [address] * Hepatitis C antibody, qualitative (10/08/2023 8:55 AM EDT) HCV NON-REACTIV E NON-REACTI VE [facility] Blood 10/08/2023 8:55 AM EDT 10/08/2023 8:58 AM EDT us Marcellus Austin MD LAB BLOOD ORDERABLES Final Resul t Performing Organization Address City/[facility]/ZIP Co de Phone Number [address] [address] from Last 3 Months or Most Recently Relevant to Health Maintenance [place] [address] [address] Advance Directives For more information, please contact: [phone] (9AM - 5PM [facility], Sunday-Sunday) Documents on File Type Date Recorded Patient Sociology Professor Expl anation Healthcare Proxy 09/15/2022 4:51 PM [...] Status Communicated To: Inpatient Attending Care Teams Power Plant Operator Apprentice Relationship Specialty Start Date End Date Marcellus Austin MD [address] [place] [address] PCP - General Internal Medicine 09/25/23 Marcellus Austin MD [address] [place] [address] Insurance Assigned Provider 9/7/24 Additional Source Comments The information contained in this document represents components of the legal health record. It is not the complete legal health record.[facility]
== END 2025-02-16 09:57 | disposition home or self-care (01) ==
LOC: HO.ACS 09:26
PROVIDERS: PCP Internal Medicine; Visit Provider Internal Medicine Medical Oncology
DX: Z79.01 Long term (current) use of anticoagulants (principal)

== ENCOUNTER → 2025-02-16 09:26 | Outpatient (BNVA) | payer BC, SELFPAY | PROVIDERS: PCP Internal Medicine; Visit Provider Internal Medicine Medical Oncology | DX: I26.99 Other pulmonary embolism without acute cor pulmonale (principal); Z79.01 Long term (current) use of anticoagulants; Z51.81 Encounter for therapeutic drug level monitoring | CPT/HCPCS: 85610; 99211 ==

== ENCOUNTER 2025-03-16 09:31 | Outpatient (AMB) | payer BC, SELFPAY ==
[2025-03-16 09:50] LABS: Prothrombin Time Whole Bld POC 32.0 sec (11.1-13.5); ~PT, ~INR - Anti Coag Clinic 2.7 (0.9-1.1)
--- NOTE | 2025-03-16 09:55 | MHC.OFFVISCO ---
Intake Intake Visit Reasons: Anticoagulation Allergies No Known Allergies Allergy (Verified 03/16/25 09:43) Medication List - Last Reconciled 03/16/25 by Elba Foote, RN cholecalciferol (vitamin D3) 50 mcg PO DAILY ferrous sulfate (Iron (ferrous sulfate)) 325 mg PO DAILY psyllium husk (Metamucil) 2 tsp PO DAILY vitamin B complex (B Complex-Vitamin B12 tablet) 1 tab PO DAILY warfarin 5 mg See Protocol PO DAILY Nursing Note INR: 2.7 in therapeutic range of 2-3 Medications and supplements reviewed No changes in health, diet, medications, or supplements, Denies any signs and symptoms of bleeding or bruising or clotting. Bleeding, bruising, clotting discussed Nutritional guidance given Dose: 7.5mg X 4 days and 5mg X 3 days (M/W/F) F/U INR: 4 weeks Patient verbalizes understanding of instructions given Coding Level of Care Code Est Patient Level 1 Diagnoses Current use of anticoagulant therapy Z79.01 Assessment & Plan Assessment & Plan (1) Current use of anticoagulant therapy: Code(s): Z79.01 - [facility] (current) use of anticoagulants Category: Medical
--- OUTSIDE RECORDS SUMMARY | 2025-03-16 11:11 | XMS_ITS | Clinical Summary ---
[facility] Organization [facility] Address [address] [place] [address] Care Team Providers Care Operator Lights Name Role Phone Unavailable Primary Care Provider [...]
--- OUTSIDE RECORDS SUMMARY | 2025-03-16 11:11 | XMS_ITS | Clinical Summary ---
Author Organization [facility] Address [address] [place] [address] Phone Care Team Providers Care Acute Care Surgeon Name Role Phone Marcellus Austin MD Primary Care Provider [phone] Marcellus Austin MD Unavailable Allergies No known [...] stable. I filled out some paperwork for [facility] elderly care that certifies that he is able to take care of of household members that are under the protection of the [facility]. S/P ileostomy 09/24/2023 Assessment & Plan (09/24/2023 3:58 PM EDT): This is a 45-minute establish care and follow-up for ileostomy. I am okay with providing the patient his medical supplies for the ileostomy. [facility] [employer] ileostomy stoma pouches SANJUANITA [id number] Quarter inch-2-1/2 inches 19-64 mm 1 box/month with 20 pack inside them. Also Stomahesive by [facility] 2 ounces to tubes per month equals 4 ounces. 25 minutes of [id number] time and 20 minutes of chart review. 45-minute visit. 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, ulcerative colitis s/p total colectomy with permanent right-sided end ileostomy (done about 15 years ago at [facility]) admitted to OSH with worsening abdominal pain, [...] #Nutrition - TF at goal 50cc/hr - INTERACTIVE DESIGNER following: FEES performed 09/04, recommend to stay [...] ileostomy (done about 15 years ago at [facility]) admitted to OSH with worsening abdominal pain, [...] #Nutrition - TF at goal 50cc/hr - INTERACTIVE DESIGNER following: FEES performed 09/04, recommend to stay [...] Description 01/28/2025 12:45 PM EDT Office Visit [facility] [address], [address] [place] [id number] Carmine Perez MBBS, MPH Ventral hernia without obstruction or gangrene (Primary Dx) 01/13/2025 Orders Only [facility] [address] [place] [address] Alfredo Anderson MD 01/12/2025 [facility] [address] [place] [address] Marcellus Austin MD Medication Refill from Last [...] high school, GED, job training, learning the Arabic language, technical skills, or developing parenting skills)? [...] Description 04/13/2025 9:00 AM EDT Office Visit [facility] Internal Medicine [address] [place] [address] Marcellus Austin MD [address] [place] [address] [email or web address] Health Maintenance Due Date Last Done Comments COLOGUARD 2008 COLONOSCOPY 2008 COLORECTAL CANCER SCREENING 2008 FIT TEST 2008 FOBT 2008 SIGMOIDOSCOPY 2008 VIRTUAL COLONOSCOPY 2008 PNEUMOCOCCAL VACCINES (50+ years) (2 of 2 - PCV) 2013 10/23/2005 ZOSTER VACCINES (1 of 2) 2013 Adult Td,Tdap Booster 12/10/2024 12/10/2014 INFLUENZA VACCINE (#1) 2025 9, 04/17/2018 COVID-19 VACCINE (3 - 2024-2 6 season) 2025 06/02/2021, 11/11/2020 DEPRESSION SCREENING 03/30/2025 03/30/2024 SCREENING FOR DIABETES [...] this topic Medical Devices Implanted Type Area Surveying Crew Rodman Device Identifier Shelf Expiration Date Model / Serial / Lot Ivc Filter Description:[employer] Retrieva ble IVC filter 01/07/07 - in Pellet Machine Operator - Conditional to 1.5T, Normal Mode - [...] (03/31/2024 10:42 AM EDT) HDL 61 mg/dL [facility] Comment: Interpretation <40 mg/dL: Low HDL cholesterol (major risk factor for CHD) Greater than or equal to 60 mg/dL: High HDL cholesterol ( negative risk factor for CHD) HDL - cholesterol is affected by a number of factors, e.g. smoking, excerise, hormones, sex and age. CHOLESTEROL 272(H) 0 - 240 mg/dL [facility] TRIGLYCERIDES 308(H) 30 - 160 mg/dL [facility] LDL 149(H) 50 - 129 mg/dL [facility] Comment: LDL levels in terms of risk for coronary heart disease: <100 mg/dL: Optimal 100-129 mg/dL: Near or above optimal 130-159 mg/dL: Borderline high 160-189 mg/dL: High >190 mg/dL: Very High CARDIAC RISK RATIO 4.5 3.4 - 5.0 [facility] Blood 03/31/2024 10:4 2 AM EDT 03/31/2024 10:45 AM EDT Marcellus Austin MD LAB BLOOD ORDERABLES Final Resul t [address] [address] * Hepatitis C antibody, qualitative (10/08/2023 8:55 AM EDT) HCV NON-REACTIV E NON-REACTI VE [facility] Blood 10/08/2023 8:55 AM EDT 10/08/2023 8:58 AM EDT Marcellus Austin MD LAB BLOOD ORDERABLES Final Resul t Performing Organization Address City/[facility] Co de Phone Number [address] [address] from Last 3 Months or Most Recently Relevant to Health Maintenance [place] [address] [place] [address] Advance Directives For more information, please contact: [phone] (9AM - 5PM [facility], Sunday-Sunday) Documents on File Type Date Recorded Patient Boiler Repair Supervisor Expl anation Healthcare Proxy 09/15/2022 4:51 PM [...] Status Communicated To: Inpatient Attending Care Teams Acute Care Surgeon Relationship Specialty Start Date End Date Marcellus Austin MD [address] [place] [address] [email or web address] PCP - General Internal Medicine 09/25/23 Marcellus Austin MD [address] [place] [address] [email or web address] Insurance Assigned Provider 03/01/24 Additional Source Comments The information contained in this document represents components of the legal health record. It is not the complete legal health record.[facility]
--- OUTSIDE RECORDS SUMMARY | 2025-03-16 11:12 | XMS_ITS | Encounter Summary ---
Author Organization [facility] Address [address] [place] [address] Phone Care Team Providers Care Interventional Neuroradiologist Name Role Phone Dean Vaughn MD Primary Care Provider [phone] Marcellus Austin MD Primary Care Provider [phone] Marcellus Austin MD Unavailable Encounter Details Date Type Department Care Team (Late st Contact Info) Description 08/24/2022 Procedure Pass [facility] PERIOPERATIVE DEPT [address] [place] [id number] Social History Tobacco Use Types Packs/Day Years Used Date Smoking Tobacco: Never Smokeless Tobacco: Never Alcohol Use Standard Drinks/Week Comments Yes 0 (1 standard drink = 0.6 oz pur e alcohol) Sex and Gender Information Value Date Recorded Sex Assigned at Male 07/23/2023 1:54 PM EST Legal Sex Male 9:43 PM EDT Gender Identity Male 07/23/2023 1:54 PM EST Sexual Orientation Straight 07/23/2023 1: 54 PM EST documented as of this encounter Plan of Treatment Upcoming Encounters Date Type Department Care Team (Late st Contact Info) Description 04/13/2025 9:00 AM EDT Office Visit [facility] Internal Medicine [address] [place], [place] [phone] Marcellus Austin MD [address] [place], [place] [id number] [email or web address] documented as of this encounter Visit Diagnoses Not on filedocumented in this encounter Care Teams Interventional Neuroradiologist Relationship Specialty Start Date End Date Dean Vaughn MD [address] [place] [address] PCP - General 04/09/17 09/24/23 Marcellus Austin MD [address] [place] [address] [email or web address] PCP - General Internal Medicine 09/25/23 Marcellus Austin MD [address] [place] [address] [email or web address] Insurance Assigned Provider 03/01/24 documented as of this encounter Additional Source Comments The information contained in this document represents components of the legal health record. It is not the complete legal health record.[facility]
--- OUTSIDE RECORDS SUMMARY | 2025-03-16 11:12 | XMS_ITS | Encounter Summary ---
Author Organization [facility] Address [address] [place] [address] Phone Care Team Providers Care Rigging Loft Repairer Name Role Phone Marcellus Austin MD Primary Care Provider [phone] Marcellus Austin MD Unavailable Encounter Details Date Type Department Care Team (Late st Contact Info) Description 09/30/[address] - [address], [address] [place] [address] Social History Tobacco Use Types Packs/Day Years Used Date Smoking Tobacco: Never Smokeless Tobacco: Never Alcohol Use Standard Drinks/Week Comments Yes 2 [...] high school, GED, job training, learning the [place]ar[place] language, technical skills, or developing parenting skills)? [...] your housing situation today? I have román lantigua 09/23/2023 How many times have you move [...] 04/13/2025 9:00 AM EDT Office Visit [facility] [place] Internal Medicine [address] [place] [address] Marcellus Austin MD [address] [place] [address] documented as of this encounter Visit Diagnoses Not on filedocumented in this encounter Additional Health Concerns Assessment Noted Time PHQ-2 Depression Total Score: 0 03/30/20 24 9:12 PM EDT documented as of this encounter Care Teams Rigging Loft Repairer Relationship Specialty Start Date End Date Marcellus Austin MD [address] [place] [address] PCP - General Internal Medicine 09/25/23 Marcellus Austin MD [address] [place] [address] Insurance Assigned Provider 03/01/24 documented as of this encounter Additional Source Comments The information contained in this document represents components of the legal health record. It is not the complete legal health record.[facility]
--- OUTSIDE RECORDS SUMMARY | 2025-03-16 11:12 | XMS_ITS | Encounter Summary ---
Author Organization [facility] Address [address] [place] [address] Phone Care Team Providers Care Silo Painter Name Role Phone Dean Vaughn MD Primary Care Provider [phone] Marcellus Austin MD Primary Care Provider Marcellus Austin MD Unavailable Encounter Details Date Type Department Care Team (Late st Contact Info) Description 08/20/2022 Procedure Pass [facility] Ct Scan - [address] [id number] Social History Tobacco Use Types Packs/Day Years [...] PM EST documented as of this encounter Functional Status * Calculated C-SSRS Risk Score (Lifetime/Recent) Answer Date of Assessment Author No Risk Indicated 08/23/2022 6:00 PM Rema Denise RN * [place] Suicide Severity Rating Scale (Screener/Recent Self-Report) Question Answer Date of Assessment Author 1. Wish to be (Past 1 Month) No 08/23/2022 6:00 PM Rema Engle RN 2. Non-Specific Active Suicidal Thoughts (Past 1 Month) No 08/23/2022 6:00 PM EST Rema Balderas RN 6. Suicidal Behavior (Lifetime) No 08/23/2022 6:00 PM EST Rema Balderas RN documented as of this encounter Plan of Treatment Upcoming Encounters Date Type Department Care Team (Late st Contact Info) Description 04/13/2025 9:00 AM EDT Office Visit [facility] Internal Medicine [address] [place] [address] Marcellus Austin MD [address] [place] [address] documented as of this encounter Visit Diagnoses Not on filedocumented in this encounter Additional Health Concerns Infection Onset Date Last Indicated Resolved Time CoV-Risk Comment:Per note documentation 08/21/2022 08/21/2022 2:20 PM EST documented as of this encounter Care Teams Silo Painter Relationship Specialty Start Date End Date Dean Vaughn MD [address] [place] [address] PCP - General 04/09/17 09/24/23 Marcellus Austin MD [address] [place] [address] PCP - General Internal Medicine 09/25/23 Marcellus Austin MD [address] [place] [phone] Insurance Assigned Provider 03/01/24 documented as of this encounter Additional Source Comments The information contained in this document represents components of the legal health record. It is not the complete legal health record.[facility]
--- OUTSIDE RECORDS SUMMARY | 2025-03-16 11:13 | XMS_ITS | Encounter Summary ---
Author Organization [facility] Address [address] [place] [address] Phone Care Team Providers Care Wrist Liner Name Role Phone Dean Vaughn MD Primary Care Provider [phone] Marcellus Austin MD Primary Care Provider [phone] Marcellus Austin MD Unavailable Encounter Details Date Type Department Care Team (Late st Contact Info) Description 08/21/2022 Procedure Pass [facility] Cardiac US [address] [place] [address] Social History Tobacco Use Types Packs/Day Years [...] 08/23/2022 6:00 PM Rema Denise RN * [place] Suicide Severity Rating Scale (Screener/Recent Self-Report) Question Answer Date of Assessment Author 1. Wish to be (Past 1 Month) No 08/23/2022 6:00 PM Rema Engle RN 2. Non-Specific Active Suicidal Thoughts (Past 1 Month) No 08/23/2022 6:00 PM Rema Engle RN 6. Suicidal Behavior (Lifetime) No 08/23/2022 6:00 PM Rema Engle RN documented as of this encounter Plan of Treatment Upcoming Encounters Date Type Department Care Team (Late st Contact Info) Description 04/13/2025 9:00 AM EDT Office Visit [facility] Internal Medicine [address] [place] [address] Marcellus Austin MD [address] [place] [address] [email or web address] documented as of this encounter Visit Diagnoses Not on filedocumented in this encounter Additional Health Concerns Infection Onset Date Last Indicated Resolved Time CoV-Risk Comment:Per note documentation 08/21/2022 08/21/2022 2:20 PM EST documented as of this encounter Care Teams Wrist Liner Relationship Specialty Start Date End Date Dean Vaughn MD [address] [place] [address] PCP - General 04/09/17 09/24/23 Marcellus Austin MD [address] [place] [address] [email or web address] PCP - General Internal Medicine 09/25/23 Marcellus Austin MD [address] [place] [address] [email or web address] Insurance Assigned Provider 03/01/24 documented as of this encounter Additional Source Comments The information contained in this document represents components of the legal health record. It is not the complete legal health record.[facility]
--- OUTSIDE RECORDS SUMMARY | 2025-03-16 11:13 | XMS_ITS | Encounter Summary ---
Author Organization [facility] Address [address] [place] [address] Phone Care Team Providers Care School Photograph Editor Name Role Phone Dean Vaughn MD Primary Care Provider [phone] Marcellus Austin MD Primary Care Provider [phone] Marcellus Austin MD Unavailable Encounter Details Date Type Department Care Team (Late st Contact Info) Description 09/15/2022 Procedure Pass [facility] [place], [address], [address] [place] [address] Social History Tobacco Use Types Packs/Day Years Used Date Smoking Tobacco: Never Alcohol Use Standard Drinks/Week Comments [...] 04/13/2025 9:00 AM EDT Office Visit [facility] Internal Medicine [address] [place], [place] [phone] Marcellus Austin MD 40 [place], [place] [phone] [email or web address] documented as of this encounter Visit Diagnoses Not on filedocumented in this encounter Care Teams School Photograph Editor Relationship Specialty Start Date End Date Dean Vaughn MD [address] [place] [address] PCP - General 04/09/17 09/24/23 Marcellus Austin MD [address] [place] [address] [email or web address] PCP - General Internal Medicine 09/25/23 Marcellus Austin MD [address] [place] [phone] Insurance Assigned Provider 03/01/24 documented as of this encounter Additional Source Comments The information contained in this document represents components of the legal health record. It is not the complete legal health record.[facility]
--- OUTSIDE RECORDS SUMMARY | 2025-03-16 11:13 | XMS_ITS | Encounter Summary ---
Author Organization [facility] Address [address] [place] [address] Phone Care Team Providers Care Black Powder Glazing Operator Name Role Phone Dean Vaughn MD Primary Care Provider [phone] Marcellus Austin MD Primary Care Provider [phone] Marcellus Austin MD Unavailable Encounter Details Date Type Department Care Team (Late st Contact Info) Description 08/21/2022 Procedure Pass [facility] Cardiac US [address] [place] [address] Social History Tobacco Use Types Packs/Day Years [...] 08/23/2022 6:00 PM Rema Denise RN * [place] Suicide Severity Rating Scale (Screener/Recent Self-Report) Question [...] Description 04/13/2025 9:00 AM EDT Office Visit [facility] Internal Medicine [address] [place] [address] Marcellus Austin MD [address] [place] [address] documented as of this encounter Visit Diagnoses Not on filedocumented in this encounter Additional Health Concerns Infection Onset Date Last Indicated Resolved Time CoV-Risk Comment:Per note documentation 08/21/2022 08/21/2022 2:20 PM EST documented as of this encounter Care Teams Black Powder Glazing Operator Relationship Specialty Start Date End Date Dean Vaughn MD [address] [place] [address] PCP - General 04/09/17 09/24/23 Marcellus Austin MD [address] [place] [address] PCP - General Internal Medicine 09/25/23 Marcellus Austin MD [address] [place] [phone] Insurance Assigned Provider 03/01/24 documented as of this encounter Additional Source Comments The information contained in this document represents components of the legal health record. It is not the complete legal health record.[facility]
--- OUTSIDE RECORDS SUMMARY | 2025-03-16 11:13 | XMS_ITS | Encounter Summary ---
Author Organization [facility] Address [address] [place] [address] Phone Care Team Providers Care Registration Coordinator Name Role Phone Dean Vaughn MD Primary Care Provider Marcellus Austin MD Primary Care Provider [phone] Marcellus Austin MD Unavailable Encounter Details Date Type Department Care Team (Late st Contact Info) Description 08/23/2022 Procedure Pass [facility] [address], [address] [place] [address] Social History Tobacco Use Types Packs/Day Years [...] 08/23/2022 6:00 PM Rema Denise RN * [place] Suicide Severity Rating Scale (Screener/Recent Self-Report) Question [...] Description 04/13/2025 9:00 AM EDT Office Visit [facility] Internal Medicine [address] [place] [address] Marcellus Austin MD [address] [place] [address] [email or web address] documented as of this encounter Visit Diagnoses Not on filedocumented in this encounter Care Teams Registration Coordinator Relationship Specialty Start Date End Date Dean Vaughn MD [address] [place] [address] PCP - General 04/09/17 09/24/23 Marcellus Austin MD [address] [place] [address] PCP - General Internal Medicine 09/25/23 Marcellus Austin MD [address] [place] [phone] Insurance Assigned Provider 03/01/24 documented as of this encounter Additional Source Comments The information contained in this document represents components of the legal health record. It is not the complete legal health record.[facility]
--- OUTSIDE RECORDS SUMMARY | 2025-03-16 11:13 | XMS_ITS | Encounter Summary ---
Author Organization [facility] Address [address] [place] [address] Phone Care Team Providers Care Python Architect Name Role Phone Dean Vaughn MD Primary Care Provider [phone] Marcellus Austin MD Primary Care Provider [phone] Marcellus Austin MD Unavailable Encounter Details Date Type Department Care Team (Late st Contact Info) Description 08/23/2022 Procedure Pass [facility] [address] [facility], [address], [address] [place] [address] Social History Tobacco Use Types Packs/Day Years [...] 08/23/2022 6:00 PM Rema Denise RN * [place] Suicide Severity Rating Scale (Screener/Recent Self-Report) Question [...] Description 04/13/2025 9:00 AM EDT Office Visit [facility] Internal Medicine [address] [place] [address] Marcellus Austin MD [address] [place] [address] [email or web address] documented as of this encounter Visit Diagnoses Not on filedocumented in this encounter Care Teams Python Architect Relationship Specialty Start Date End Date Dean Vaughn MD [address] [place] [address] PCP - General 04/09/17 09/24/23 Marcellus Austin MD [address] [place] [address] [email or web address] PCP - General Internal Medicine 09/25/23 Marcellus Austin MD [address] [place] [phone] Insurance Assigned Provider 03/01/24 documented as of this encounter Additional Source Comments The information contained in this document represents components of the legal health record. It is not the complete legal health record.[facility]
--- OUTSIDE RECORDS SUMMARY | 2025-03-16 11:13 | XMS_ITS | Encounter Summary ---
Author Organization [facility] Address [address] [place] [address] Phone Care Team Providers Care Oyster Worker Name Role Phone Dean Vaughn MD Primary Care Provider [phone] Marcellus Austin MD Primary Care Provider [phone] Marcellus Austin MD Unavailable Encounter Details Date Type Department Care Team (Late st Contact Info) Description 08/30/2022 Procedure Pass [facility] PERIOPERATIVE DEPT [address] [place] [id number] Social History Tobacco Use Types Packs/Day [...] Encounters Date Type Department Care Team (Late Contact Info) Description 04/13/2025 9:00 AM EDT Office Visit [facility] [place] Internal Medicine [address] [place], [place] [phone] Marcellus Austin MD [address] [place], [place] [phone] [email or web address] documented as of this encounter Visit Diagnoses Not on filedocumented in this encounter Care Teams Oyster Worker Relationship Specialty Start Date End Date Dean Vaughn MD [address] [place] [address] PCP - General 04/09/17 09/24/23 Marcellus Austin MD [address] [place] [address] [email or web address] PCP - General Internal Medicine 09/25/23 Marcellus Austin MD [address] [place] [address] [email or web address] Insurance Assigned Provider 03/01/24 documented as of this encounter Additional Source Comments The information contained in this document represents components of the legal health record. It is not the complete legal health record.[facility]
--- OUTSIDE RECORDS SUMMARY | 2025-03-16 11:13 | XMS_ITS | Encounter Summary ---
Author Organization [facility] Address [address] [place] [address] Phone Care Team Providers Care Inbound Sales Consultant Name Role Phone Dean Vaughn MD Primary Care Provider [phone] Marcellus Austin MD Primary Care Provider [phone] Marcellus Austin MD Unavailable Encounter Details Date Type Department Care Team (Late st Contact Info) Description 08/24/2022 Procedure Pass [place] [facility] [place] Imaging - Peripoerative Interventional Radiology [address] [place] [address], 4th [place] [address] Social History Tobacco Use Types Packs/Day Years [...] Description 04/13/2025 9:00 AM EDT Office Visit [facility] Internal Medicine 40 [place], [place] [phone] Marcellus Austin MD 40 [place], [place] [phone] [email or web address] documented as of this encounter Visit Diagnoses Not on filedocumented in this encounter Care Teams Inbound Sales Consultant Relationship Specialty Start Date End Date Dean Vaughn MD [address] [place] [address] PCP - General 04/09/17 09/24/23 Marcellus Austin MD [address] [place] [address] [email or web address] PCP - General Internal Medicine 09/25/23 Marcellus Austin MD [address] [place] [address] Insurance Assigned Provider 03/01/24 documented as of this encounter Additional Source Comments The information contained in this document represents components of the legal health record. It is not the complete legal health record.[facility]
--- OUTSIDE RECORDS SUMMARY | 2025-03-16 11:13 | XMS_ITS | Encounter Summary ---
Author Organization [facility] Address [address] [place] [address] Phone Care Team Providers Care Director Technical Name Role Phone Dean Vaughn MD Primary Care Provider [phone] Marcellus Austin MD Primary Care Provider [phone] Marcellus Austin MD Unavailable Encounter Details Date Type Department Care Team (Late st Contact Info) Description 08/24/2022 Procedure Pass [facility]IVE [facility]PT [address] [place] [phone] Social History Tobacco Use Types Packs/Day [...] 04/13/2025 9:00 AM EDT Office Visit [facility] Internal Medicine 40 [place], [place] [phone] Marcellus Austin MD 40 [place], [place] [phone] documented as of this encounter Visit Diagnoses Not on filedocumented in this encounter Care Teams Director Technical Relationship Specialty Start Date End Date Dean Vaughn MD 40 [place] [address] PCP - General 04/09/17 09/24/23 Marcellus Austin MD 40 [place] [address] [email or web address] PCP - General Internal Medicine 09/25/23 Marcellus Austin MD 40 [place] [address] [email or web address] Insurance Assigned Provider 03/01/24 documented as of this encounter Additional Source Comments The information contained in this document represents components of the legal health record. It is not the complete legal health record.[facility]
--- OUTSIDE RECORDS SUMMARY | 2025-03-16 11:13 | XMS_ITS | Encounter Summary ---
Author Organization [facility] Address [address] [place] [address] Phone Care Team Providers Care Crocheter Hand Name Role Phone Dean Vaughn MD Primary Care Provider [phone] Marcellus Austin MD Primary Care Provider [phone] Marcellus Austin MD Unavailable Encounter Details Date Type Department Care Team (Late st Contact Info) Description 08/31/2022 Procedure [place] [facility] [place] - RF[place]IR [address] [facility], 2nd [place] [address] Social History Tobacco Use Types Packs/Day Years [...] 04/13/2025 9:00 AM EDT Office Visit [facility] Internal Medicine 40 [place], [place] [phone] Marcellus Austin MD 40 [place], [place] [phone] documented as of this encounter Visit Diagnoses Not on filedocumented in this encounter Care Teams Crocheter Hand Relationship Specialty Start Date End Date Dean Vaughn MD [address] [place] [address] PCP - General 04/09/17 09/24/23 Marcellus Austin MD [address] [place] [address] PCP - General Internal Medicine 09/25/23 Marcellus Austin MD [address] [place] [address] Insurance Assigned Provider 03/01/24 documented as of this encounter Additional Source Comments The information contained in this document represents components of the legal health record. It is not the complete legal health record.[facility]
--- OUTSIDE RECORDS SUMMARY | 2025-03-16 11:13 | XMS_ITS | Encounter Summary ---
Author Organization [facility] Address [address] [place] [address] Phone Care Team Providers Care Throw Out Clerk Name Role Phone Dean Vaughn MD Primary Care Provider [phone] Marcellus Austin MD Primary Care Provider [phone] Marcellus Austin MD Unavailable Encounter Details Date Type Department Care Team (Late st Contact Info) Description 08/21/2022 Procedure Pass [facility] Emergency Imaging, [address], Floor 1 [place] [address] Social History Tobacco Use Types Packs/Day Years [...] 08/23/2022 6:00 PM Rema Denise RN * [place] Suicide Severity Rating Scale (Screener/Recent Self-Report) Question [...] Description 04/13/2025 9:00 AM EDT Office Visit [facility] Internal Medicine 40 [place] [address] Marcellus Austin MD 40 [place] [address] documented as of this encounter Visit Diagnoses Not on filedocumented in this encounter Additional Health Concerns Infection Onset Date Last Indicated Resolved Time CoV-Risk Comment:Per note documentation 08/21/2022 08/21/2022 2:20 PM EST documented as of this encounter Care Teams Throw Out Clerk Relationship Specialty Start Date End Date Dean Vaughn MD 40 [place] [address] PCP - General 04/09/17 09/24/23 Marcellus Austin MD 40 [place] [address] PCP - General Internal Medicine 09/25/23 Marcellus Austin MD [address] [place] [address] [email or web address] Insurance Assigned Provider 03/01/24 documented as of this encounter Additional Source Comments The information contained in this document represents components of the legal health record. It is not the complete legal health record.[facility]
--- OUTSIDE RECORDS SUMMARY | 2025-03-16 11:13 | XMS_ITS | Encounter Summary ---
Author Organization [facility] Address [address] [place] [address] Phone Care Team Providers Care Cattle Examiner Name Role Phone Dean Vaughn MD Primary Care Provider [phone] Marcellus Austin MD Primary Care Provider [phone] Marcellus Austin MD Unavailable Encounter Details Date Type Department Care Team (Late st Contact Info) Description 08/21/2022 Procedure Pass [facility] PERIOPERATIVE DEPT [address] [place] [phone] Social History Tobacco Use Types Packs/Day [...] 08/23/2022 6:00 PM Rema Denise RN * [place] Suicide Severity Rating Scale (Screener/Recent Self-Report) Question [...] Description 04/13/2025 9:00 AM EDT Office Visit [facility] Internal Medicine 40 [place] [address] Marcellus Austin MD 40 [place] [address] documented as of this encounter Visit Diagnoses Not on filedocumented in this encounter Additional Health Concerns Infection Onset Date Last Indicated Resolved Time CoV-Risk Comment:Per note documentation 08/21/2022 08/21/2022 2:20 PM EST documented as of this encounter Care Teams Cattle Examiner Relationship Specialty Start Date End Date Dean Vaughn MD 40 [place] [address] PCP - General 04/09/17 09/24/23 Marcellus Austin MD [address] [place] [address] PCP - General Internal Medicine 09/25/23 Marcellus Austin MD [address] [place] [address] Insurance Assigned Provider 03/01/24 documented as of this encounter Additional Source Comments The information contained in this document represents components of the legal health record. It is not the complete legal health record.[facility]
--- OUTSIDE RECORDS SUMMARY | 2025-03-16 11:13 | XMS_ITS | Encounter Summary ---
Author Organization [facility] Address [address] [place] [address] Phone Care Team Providers Care Magazine Keeper Name Role Phone Dean Vaughn MD Primary Care Provider [phone] Marcellus Austin MD Primary Care Provider [phone] Marcellus Austin MD Unavailable Encounter Details Date Type Department Care Team (Late st Contact Info) Description 08/28/2022 Procedure Pass [facility] [place] PERIOPERATIVE DEPT [address] [place] [phone] Social History Tobacco Use Types Packs/Day [...] 04/13/2025 9:00 AM EDT Office Visit [facility] Internal Medicine 40 [place], [place] [phone] Marcellus Austin MD 40 [place], [place] [phone] [email or web address] documented as of this encounter Visit Diagnoses Not on filedocumented in this encounter Care Teams Magazine Keeper Relationship Specialty Start Date End Date Dean Vaughn MD 40 [place] [address] PCP - General 04/09/17 09/24/23 Marcellus Austin MD 40 [place] [address] [email or web address] PCP - General Internal Medicine 09/25/23 Marcellus Austin MD 40 [place] [address] [email or web address] Insurance Assigned Provider 03/01/24 documented as of this encounter Additional Source Comments The information contained in this document represents components of the legal health record. It is not the complete legal health record.[facility]
--- OUTSIDE RECORDS SUMMARY | 2025-03-16 11:13 | XMS_ITS | Encounter Summary ---
Author Organization [facility] Address [address] [place] [address] Phone Care Team Providers Care Skiagrapher Name Role Phone Dean Vaughn MD Primary Care Provider [phone] Marcellus Austin MD Primary Care Provider Marcellus Austin MD Unavailable Encounter Details Date Type Department Care Team (Late st Contact Info) Description 08/21/2022 Procedure Pass [place] Admitting Dept - Virtual Department [address] [place], [place] [phone] Social History Tobacco Use Types Packs/Day Years [...] 08/23/2022 6:00 PM Rema Denise RN * [place] Suicide Severity Rating Scale (Screener/Recent Self-Report) Question [...] Description 04/13/2025 9:00 AM EDT Office Visit [facility] Internal Medicine 40 [place] [address] Marcellus Austin MD 40 [place] [address] documented as of this encounter Visit Diagnoses Not on filedocumented in this encounter Additional Health Concerns Infection Onset Date Last Indicated Resolved Time CoV-Risk Comment:Per note documentation 08/21/2022 08/21/2022 2:20 PM EST documented as of this encounter Care Teams Skiagrapher Relationship Specialty Start Date End Date Dean Vaughn MD 40 [place] [address] PCP - General 04/09/17 09/24/23 Marcellus Austin MD 40 [place] [address] [email or web address] PCP - General Internal Medicine 09/25/23 Marcellus Austin MD 40 [place] [address] [email or web address] Insurance Assigned Provider 03/01/24 documented as of this encounter Additional Source Comments The information contained in this document represents components of the legal health record. It is not the complete legal health record.[facility]
--- OUTSIDE RECORDS SUMMARY | 2025-03-16 11:13 | XMS_ITS | Clinical Summary ---
Author Organization [facility] Address [address] [place] [address] Care Team Providers Care Tool Inspector Name Role Phone Dean Vaughn MD Primary Care Provider [phone] Social History Tobacco Use Types Packs/Day Years [...] Vaccine (1 of 2) 2013 Influenza Vaccine 01/23/2025 COVID-19 Vaccine (1 - 2023-2 5 season) 2025 RSV Vaccine 60 years and old er and Patients (1 - 1-dose 75+ series) 2038 Hepatitis B Vaccines Aged Out No long er eligible based on patient's age to complete this topic Insurance [facility] Care Teams Tool Inspector Relationship Specialty Start Date End Date Dean Vaughn MD [address] [place] [address] [place] [address] PCP - General 08/21/22
--- OUTSIDE RECORDS SUMMARY | 2025-03-16 11:13 | XMS_ITS | Patient Health Record ---
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
--- OUTSIDE RECORDS SUMMARY | 2025-03-16 11:13 | XMS_ITS | Encounter Summary ---
Author Organization [facility] Address [address] [place] [address] Phone Care Team Providers Care Coat Joiner Name Role Phone Dean Vaughn MD Primary Care Provider [phone] Marcellus Austin MD Primary Care Provider [phone] Marcellus Austin MD Unavailable Encounter Details Date Type Department Care Team (Late st Contact Info) Description 08/21/2022 Procedure Pass [facility] [place] Emergency Imaging, [address], Floor 1 [place] [address] Social History Tobacco Use Types Packs/Day Years [...] 08/23/2022 6:00 PM Rema Denise RN * [place] Suicide Severity Rating Scale (Screener/Recent Self-Report) Question [...] Office Visit [facility] Internal Medicine 40 [place] [address] Marcellus Austin MD 40 [place] [address] documented as of this encounter Visit Diagnoses Not on filedocumented in this encounter Additional Health Concerns Infection Onset Date Last Indicated Resolved Time CoV-Risk Comment:Per note documentation 08/21/2022 08/21/2022 2:20 PM EST documented as of this encounter Care Teams Coat Joiner Relationship Specialty Start Date End Date Dean Vaughn MD 40 [place] [address] PCP - General 04/09/17 09/24/23 Marcellus Austin MD 40 [place] [address] PCP - General Internal Medicine 09/25/23 Marcellus Austin MD [address] [place] [address] Insurance Assigned Provider 03/01/24 documented as of this encounter Additional Source Comments The information contained in this document represents components of the legal health record. It is not the complete legal health record.[facility]
--- OUTSIDE RECORDS SUMMARY | 2025-03-16 11:13 | XMS_ITS | Encounter Summary ---
Author Organization [facility] Address [address] [place] [address] Phone Care Team Providers Care Carburetor Specialist Name Role Phone Dean Vaughn MD Primary Care Provider [phone] Marcellus Austin MD Primary Care Provider [phone] Marcellus Austin MD Unavailable Encounter Details Date Type Department Care Team (Late st Contact Info) Description 08/30/2022 Procedure Pass [facility], [address] [facility], 2nd Floor, [address] [place] [address] Social History Tobacco Use Types Packs/Day Years [...] Description 04/13/2025 9:00 AM EDT Office Visit [facility] Internal Medicine 40 [place], [place] [phone] Marcellus Austin MD 40 [place], [place] [phone] documented as of this encounter Visit Diagnoses Not on filedocumented in this encounter Care Teams Carburetor Specialist Relationship Specialty Start Date End Date Dean Vaughn MD [address] [place] [address] PCP - General 04/09/17 09/24/23 Marcellus Austin MD [address] [place] [address] PCP - General Internal Medicine 09/25/23 Marcellus Austin MD [address] [place] [address] Insurance Assigned Provider 03/01/24 documented as of this encounter Additional Source Comments The information contained in this document represents components of the legal health record. It is not the complete legal health record.[facility]
--- OUTSIDE RECORDS SUMMARY | 2025-03-16 11:13 | XMS_ITS | Encounter Summary ---
Author Organization [facility] Address [address] [facility] [address] [place] [address] Phone Care Team Providers Care Pole Peeler Name Role Phone Dean Vaughn MD Primary Care Provider [phone] Marcellus Austin MD Primary Care Provider [phone] Marcellus Austin MD Unavailable Encounter Details Date Type Department Care Team (Late st Contact Info) Description 09/15/2022 Procedure Pass [facility] Imaging - RF/IR [address] [place] [address] Social History Tobacco Use Types Packs/Day Years [...] Description 04/13/2025 9:00 AM EDT Office Visit [facility] Internal Medicine 40 [place], [place] [phone] Marcellus Austin MD 40 [place] [address] [email or web address] documented as of this encounter Visit Diagnoses Not on filedocumented in this encounter Care Teams Pole Peeler Relationship Specialty Start Date End Date Dean Vaughn MD 40 [place] [address] PCP - General 04/09/17 09/24/23 Mracellus Austin MD 40 [place] [address] .[employer] PCP - General Internal Medicine 09/25/23 Marcellus Austin MD 40 [place] [address] [email or web address] Insurance Assigned Provider 03/01/24 documented as of this encounter Additional Source Comments The information contained in this document represents components of the legal health record. It is not the complete legal health record.[facility]
--- OUTSIDE RECORDS SUMMARY | 2025-03-16 11:13 | XMS_ITS | Encounter Summary ---
Author Organization [facility] Address [address] [place] [address] Phone Care Team Providers Care Hand I Thermal Cutter Name Role Phone Dean Vaughn MD Primary Care Provider [phone] Marcellus Austin MD Primary Care Provider [phone] Marcellus Austin MD Unavailable Encounter Details Date Type Department Care Team (Late st Contact Info) Description 08/26/2022 Procedure Pass [facility] PERIOPERATIVE DEPT [address] [place] [phone] Social History Tobacco Use Types Packs/Day [...] 04/13/2025 9:00 AM EDT Office Visit [facility] [place] Internal Medicine 40 [place], [place] [phone] Marcellus Austin MD [address] [place], [place] [phone] documented as of this encounter Visit Diagnoses Not on filedocumented in this encounter Care Teams Hand I Thermal Cutter Relationship Specialty Start Date End Date Dean Vaughn MD 40 [place] [address] PCP - General 04/09/17 09/24/23 Marcellus Austin MD [address] [place] [address] [email or web address] PCP - General Internal Medicine 09/25/23 Marcellus Austin MD [address] [place] [address] [email or web address] Insurance Assigned Provider 03/01/24 documented as of this encounter Additional Source Comments The information contained in this document represents components of the legal health record. It is not the complete legal health record.[facility]
--- OUTSIDE RECORDS SUMMARY | 2025-03-16 11:13 | XMS_ITS | Encounter Summary ---
Author Organization [facility] Address [address] [place] [address] Phone Care Team Providers Care Paper Rewinder Operator Name Role Phone Dean Vaughn MD Primary Care Provider [phone] Marcellus Austin MD Primary Care Provider [phone] Marcellus Austin MD Unavailable Encounter Details Date Type Department Care Team (Late st Contact Info) Description 08/30/2022 [place] [facility] [place] [address] [facility], 2nd Floor, [address] [place] [address] Social History Tobacco Use Types Packs/Day Years [...] Description 04/13/2025 9:00 AM EDT Office Visit [facility] Internal Medicine 40 [place], [place] [phone] Marcellus Austin MD 40 [place], [place] [phone] [email or web address] documented as of this encounter Visit Diagnoses Not on filedocumented in this encounter Care Teams Paper Rewinder Operator Relationship Specialty Start Date End Date Dean Vaughn MD [address] [place] [address] PCP - General 04/09/17 09/24/23 Marcellus Austin MD [address] [place] [address] [email or web address] PCP - General Internal Medicine 09/25/23 Marcellus Austin MD [address] [place] [address] Insurance Assigned Provider 03/01/24 documented as of this encounter Additional Source Comments The information contained in this document represents components of the legal health record. It is not the complete legal health record.[facility]
--- OUTSIDE RECORDS SUMMARY | 2025-03-16 11:13 | XMS_ITS | Encounter Summary ---
Author Organization [facility] Address [address] [place] [address] Phone Care Team Providers Care Drapery Hemmer Automatic Name Role Phone Dean Vaughn MD Primary Care Provider [phone] Marcellus Austin MD Primary Care Provider Marcellus Austin MD Unavailable Encounter Details Date Type Department Care Team (Late st Contact Info) Description 08/23/2022 Procedure Pass [facility] [place], [address] [facility], 2nd Floor, [address] [place] [address] Social History Tobacco Use Types Packs/Day Years [...] 08/23/2022 6:00 PM Rema Denise RN * [place] Suicide Severity Rating Scale (Screener/Recent Self-Report) Question [...] Description 04/13/2025 9:00 AM EDT Office Visit [facility] Internal Medicine 40 [place] [address] Marcellus Austin MD 40 [place] [address] [email or web address] documented as of this encounter Visit Diagnoses Not on filedocumented in this encounter Care Teams Drapery Hemmer Automatic Relationship Specialty Start Date End Date Dean Vaughn MD 40 [place] [address] PCP - General 04/09/17 09/24/23 Marcellus Austin MD 40 [place] [address] [email or web address] PCP - General Internal Medicine 09/25/23 Marcellus Austin MD [address] [place] [phone] Insurance Assigned Provider 03/01/24 documented as of this encounter Additional Source Comments The information contained in this document represents components of the legal health record. It is not the complete legal health record.[facility]
--- OUTSIDE RECORDS SUMMARY | 2025-03-16 11:13 | XMS_ITS | Encounter Summary ---
Author Organization [facility] Address [address] [place] [phone] Phone Care Team Providers Care Buckram Sewer Name Role Phone Dean Vaughn MD Primary Care Provider [phone] Marcellus Austin MD Primary Care Provider [phone] Marcellus Austin MD Unavailable Encounter Details Date Type Department Care Team (Late st Contact Info) Description 08/23/2022 Procedure Pass [facility] Cardiac US [address] [place] [address] Social History Tobacco Use Types Packs/Day Years [...] 08/23/2022 6:00 PM Rema Denise RN * Graham Suicide Severity Rating Scale (Screener/Recent Self-Report) Question [...] Description 04/13/2025 9:00 AM EDT Office Visit [facility] Internal Medicine [address] [place] [address] Marcellus Austin MD [address] [place] [address] documented as of this encounter Visit Diagnoses Not on filedocumented in this encounter Care Teams Buckram Sewer Relationship Specialty Start Date End Date Dean Vaughn MD [address] [place] [address] PCP - General 04/09/17 09/24/23 Marcellus Austin MD [address] [place] [address] PCP - General Internal Medicine 09/25/23 Marcellus Austin MD [address] [place] [phone] Insurance Assigned Provider 03/01/24 documented as of this encounter Additional Source Comments The information contained in this document represents components of the legal health record. It is not the complete legal health record.[facility]
--- OUTSIDE RECORDS SUMMARY | 2025-03-16 11:13 | XMS_ITS | Encounter Summary ---
Author Organization [facility] Address [address] [place] [phone] Phone Care Team Providers Care Registered Nurse Float Pool Name Role Phone Dean Vaughn MD Primary Care Provider [phone] Marcellus Austin MD Primary Care Provider [phone] Marcellus Austin MD Unavailable Encounter Details Date Type Department Care Team (Late st Contact Info) Description 09/05/2022 Procedure Pass [facility], [facility] [address] [place] [address], [address] [place] [address] Social History Tobacco Use Types Packs/Day Years [...] Description 04/13/2025 9:00 AM EDT Office Visit [facility] Internal Medicine [address] [place], [place] [phone] Marcellus Austin MD [address] [place] [address] [email or web address] documented as of this encounter Visit Diagnoses Not on filedocumented in this encounter Care Teams Registered Nurse Float Pool Relationship Specialty Start Date End Date Dean Vaughn MD [address] [place] [phone] PCP - General 04/09/17 09/24/23 Marcellus Austin MD [address] [place] [phone] [email or web address] PCP - General Internal Medicine 09/25/23 Marcellus Austin MD [address] [place] [phone] Insurance Assigned Provider 03/01/24 documented as of this encounter Additional Source Comments The information contained in this document represents components of the legal health record. It is not the complete legal health record.[facility]
--- OUTSIDE RECORDS SUMMARY | 2025-03-16 11:13 | XMS_ITS | Encounter Summary ---
Author Organization [facility] Address [address] [place] [address] Phone Care Team Providers Care Vocational Rehabilitation Administrator Name Role Phone Dean Vaughn MD Primary Care Provider [phone] Marcellus Austin MD Primary Care Provider [phone] Marcellus Austin MD Unavailable Encounter Details Date Type Department Care Team (Late st Contact Info) Description 09/05/2022 Procedure Pass [facility], [facility] [address] [place] [address], [address] [place] [address] Social History Tobacco Use Types Packs/Day Years [...] 04/13/2025 9:00 AM EDT Office Visit [facility] Internal Medicine [address] [place], [place] [phone] Marcellus Austin MD [address] [place] [address] documented as of this encounter Visit Diagnoses Not on filedocumented in this encounter Care Teams Vocational Rehabilitation Administrator Relationship Specialty Start Date End Date Dean Vaughn MD [address] [place] [phone] PCP - General 04/09/17 09/24/23 Marcellus Austin MD [address] [place] [phone] PCP - General Internal Medicine 09/25/23 Marcellus Austin MD [address] [place] [phone] Insurance Assigned Provider 03/01/24 documented as of this encounter Additional Source Comments The information contained in this document represents components of the legal health record. It is not the complete legal health record.[facility]
--- OUTSIDE RECORDS SUMMARY | 2025-03-16 11:13 | XMS_ITS | Encounter Summary ---
Author Organization [facility] Address [address] [place] [address] Phone Care Team Providers Care Epic Director Name Role Phone Dean Vaughn MD Primary Care Provider [phone] Marcellus Austin MD Primary Care Provider [phone] Marcellus Austin MD Unavailable Encounter Details Date Type Department Care Team (Late st Contact Info) Description 09/05/2022 Procedure Pass [facility], [facility] [address] [place] [address], [address] [place] [address] Social History Tobacco Use Types Packs/Day Years [...] 04/13/2025 9:00 AM EDT Office Visit [facility] Internal Medicine [address] [place], [place] [phone] Marcellus Austin MD [address] [place] [address] documented as of this encounter Visit Diagnoses Not on filedocumented in this encounter Care Teams Epic Director Relationship Specialty Start Date End Date Dean Vaughn MD [address] [place] [phone] PCP - General 04/09/17 09/24/23 Marcellus Austin MD [address] [place] [phone] PCP - General Internal Medicine 09/25/23 Marcellus Austin MD [address] [place] [phone] Insurance Assigned Provider 03/01/24 documented as of this encounter Additional Source Comments The information contained in this document represents components of the legal health record. It is not the complete legal health record.[facility]
== END 2025-03-16 09:59 | disposition home or self-care (01) ==
LOC: HO.ACS 09:31
PROVIDERS: PCP Internal Medicine; Visit Provider Internal Medicine Medical Oncology
DX: Z79.01 Long term (current) use of anticoagulants (principal)

== ENCOUNTER → 2025-03-16 09:31 | Outpatient (BNVA) | payer BC, SELFPAY | PROVIDERS: PCP Internal Medicine; Visit Provider Internal Medicine Medical Oncology | DX: I26.99 Other pulmonary embolism without acute cor pulmonale (principal); Z79.01 Long term (current) use of anticoagulants; Z51.81 Encounter for therapeutic drug level monitoring | CPT/HCPCS: 85610; 99211 ==

== ENCOUNTER 2025-04-13 13:04 | Outpatient (AMB) | payer BC, SELFPAY ==
[2025-04-13 13:12] LABS: Prothrombin Time Whole Bld POC 30.2 sec (11.1-13.5); ~PT, ~INR - Anti Coag Clinic 2.5 (0.9-1.1)
--- NOTE | 2025-04-13 13:14 | MHC.OFFVISCO ---
Intake Intake Visit Reasons: Anticoagulation Allergies No Known Allergies Allergy (Verified 04/13/25 13:04) Medication List - Last Reconciled 04/13/25 by Marybeth Bartlett RN cholecalciferol (vitamin D3) 50 mcg PO DAILY ferrous sulfate (Iron (ferrous sulfate)) 325 mg PO DAILY psyllium husk (Metamucil) 2 tsp PO DAILY vitamin B complex (B Complex-Vitamin B12 tablet) 1 tab PO DAILY warfarin 5 mg See Protocol PO DAILY Nursing Note INR: 2.5 in therapeutic range Medications and supplements reviewed No changes in health, diet, medications, or supplements, Denies any signs and symptoms of bleeding or bruising or clotting. Bleeding, bruising, clotting discussed Nutritional guidance given Dose: 5mg mwf/ 7.5mg x 4 days F/U INR: 1 month Patient verbalizes understanding of instructions given Questionnaires HAS-BLED Does the patient had uncontrolled Hypertension?: No Does the patient have renal disease?: No Does the patient have liver disease?: No Does the patient have a history of stroke?: No Has the patient had major bleeding or predisposition to bleeding?: No Does the patient have labile INRs?: No Is the patient over 65 years of age?: No Is the patient on medications that gives them a predisposition to bleeding?: Yes Does the patient use alcohol?: Yes HAS-BLED Score: 2 CHADSVASC Age: <65 Gender: Male Does the patient have a history of CHF?: No Does the patient have a history of Hypertension?: No Does the patient have a history of Stroke/TIA/Thromboembolism?: Yes Does the patient have a history of Vascular Disease (prior CA, PAD or aortic plaque)?: No Does the patient have a history of Diabetes?: No CHADS VACS Score: 2 Marisa Prediction Score Rsk VTE Active Cancer: No Previous VTE, excluding superficial vein thrombosis: Yes Reduced mobility: No Already known Thrombophilic Condition: Yes With-in last month Trauma and/or Surgery: No Elderly 70 year or older: No Heart and/or Respiratory Failure: No Acute Myocardial infarction and/or Ischemic Stroke: No Acute Infection and/or Rheumatologic Disorder: No Obesity (BMI 30 or greater): No Ongoing Hormonal Treatment: No Score: 6 Marisa Score less than 4; Low Risk of VTE Marisa Score 4 or greater; High Risk of VTE Coding Level of Care Code Est Patient Level 1 Diagnoses Current use of anticoagulant therapy Z79.01 Results AMB INR Fingerstick AMB INR Fingerstick 2.5 Last Edit by Marybeth Bartlett RN on 04/13/25 13:13 manual entry Assessment & Plan Assessment & Plan (1) Current use of anticoagulant therapy: Code(s): 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
== END 2025-04-13 13:16 | disposition home or self-care (01) ==
LOC: HO.ACS 13:04
PROVIDERS: PCP Internal Medicine; Visit Provider Internal Medicine Medical Oncology
DX: Z79.01 Long term (current) use of anticoagulants (principal)

== ENCOUNTER → 2025-04-13 13:04 | Outpatient (BNVA) | payer BC, SELFPAY | PROVIDERS: PCP Internal Medicine; Visit Provider Internal Medicine Medical Oncology | DX: Z86.711 Personal history of pulmonary embolism (principal); Z51.81 Encounter for therapeutic drug level monitoring; Z79.01 Long term (current) use of anticoagulants | CPT/HCPCS: 85610; 99211 ==

== ENCOUNTER 2025-05-11 09:11 | Outpatient (AMB) | payer BC, SELFPAY ==
--- NOTE | 2025-05-11 09:36 | MHC.OFFVISCO ---
Intake Intake Visit Reasons: Anticoagulation Allergies No Known Allergies Allergy (Verified 05/11/25 09:31) Medication List - Last Reconciled 05/11/25 by Elba Foote, RN cholecalciferol (vitamin D3) 50 mcg PO DAILY ferrous sulfate (Iron (ferrous sulfate)) 325 mg PO DAILY psyllium husk (Metamucil) 2 tsp PO DAILY vitamin B complex (B Complex-Vitamin B12 tablet) 1 tab PO DAILY [vitamin D 3 PO DAILY] warfarin 5 mg See Protocol PO DAILY Nursing Note INR: 2.8 in therapeutic range of 2-3 Medications and supplements reviewed No changes in health, diet, medications, or supplements, Denies any signs and symptoms of bleeding or bruising or clotting. 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
[2025-05-11 09:37] LABS: Prothrombin Time Whole Bld POC 33.8 sec (11.1-13.5); ~PT, ~INR - Anti Coag Clinic 2.8 (0.9-1.1)
== END 2025-05-11 09:46 | disposition home or self-care (01) ==
LOC: HO.ACS 09:11
PROVIDERS: PCP Internal Medicine; Visit Provider Internal Medicine Medical Oncology
DX: Z79.01 Long term (current) use of anticoagulants (principal)

== ENCOUNTER → 2025-05-11 09:11 | Outpatient (BNVA) | payer BC, SELFPAY | PROVIDERS: PCP Internal Medicine; Visit Provider Internal Medicine Medical Oncology | DX: Z79.01 Long term (current) use of anticoagulants (principal) | CPT/HCPCS: 85610; 99211 ==

== ENCOUNTER 2025-06-08 09:17 | Outpatient (AMB) | payer BC, SELFPAY ==
[2025-06-08 09:33] LABS: Prothrombin Time Whole Bld POC 40.4 sec (11.1-13.5); ~PT, ~INR - Anti Coag Clinic 3.4 (0.9-1.1)
--- NOTE | 2025-06-08 09:39 | MHC.OFFVISCO ---
Intake Intake Visit Reasons: Anticoagulation Allergies No Known Allergies Allergy (Verified 06/08/25 09:28) Medication List - Last Reconciled 06/08/25 by Marybeth Bartlett RN cholecalciferol (vitamin D3) 50 mcg PO DAILY ferrous sulfate (Iron (ferrous sulfate)) 325 mg PO DAILY psyllium husk (Metamucil) 2 tsp PO DAILY vitamin B complex (B Complex-Vitamin B12 tablet) 1 tab PO DAILY [vitamin D 3 PO DAILY] warfarin 5 mg See Protocol PO DAILY Nursing Note INR: 3.4 out therapeutic range Medications and supplements reviewed No changes in health, diet, medications, or supplements, Denies any signs and symptoms of bleeding or bruising or clotting. Bleeding, bruising, clotting discussed Nutritional guidance given - resume weekly greens to lower INR Dose: 5mg mwf/ 7.5mg x 4 days F/U INR: 1 month Patient verbalizes understanding of instructions given Questionnaires HAS-BLED Does the patient had uncontrolled Hypertension?: No Does the patient have renal disease?: No Does the patient have liver disease?: No Does the patient have a history of stroke?: No Has the patient had major bleeding or predisposition to bleeding?: Yes Does the patient have labile INRs?: No Is the patient over 65 years of age?: No Is the patient on medications that gives them a predisposition to bleeding?: Yes Does the patient use alcohol?: No HAS-BLED Score: 2 CHADSVASC Age: <65 Gender: Male Does the patient have a history of CHF?: No Does the patient have a history of Hypertension?: No Does the patient have a history of Stroke/TIA/Thromboembolism?: Yes Does the patient have a history of Vascular Disease (prior AR, PAD or aortic plaque)?: No Does the patient have a history of Diabetes?: No CHADS VACS Score: 2 Marisa Prediction Score Rsk VTE Active Cancer: No Previous VTE, excluding superficial vein thrombosis: Yes Reduced mobility: No Already known Thrombophilic Condition: Yes With-in last month Trauma and/or Surgery: No Elderly 70 year or older: No Heart and/or Respiratory Failure: No Acute Myocardial infarction and/or Ischemic Stroke: No Acute Infection and/or Rheumatologic Disorder: No Obesity (BMI 30 or greater): No Ongoing Hormonal Treatment: No Score: 6 Marisa Score less than 4; Low Risk of VTE Marisa Score 4 or greater; High Risk of VTE Coding Level of Care Code Est Patient Level 1 Diagnoses Current use of anticoagulant therapy Z79.01 Results AMB INR Fingerstick AMB INR Fingerstick 3.4 Last Edit by Marybeth Bartlett RN on 06/08/25 09:36 mate Assessment & Plan Assessment & Plan (1) Current use of anticoagulant therapy: Code(s): Z79.01 - [facility] (current) use of anticoagulants Category: Medical
== END 2025-06-08 09:43 | disposition home or self-care (01) ==
LOC: HO.ACS 09:17
PROVIDERS: PCP Internal Medicine; Visit Provider Internal Medicine Medical Oncology
DX: Z79.01 Long term (current) use of anticoagulants (principal)

== ENCOUNTER → 2025-06-08 09:17 | Outpatient (BNVA) | payer BC, SELFPAY | PROVIDERS: PCP Internal Medicine; Visit Provider Internal Medicine Medical Oncology | DX: I26.99 Other pulmonary embolism without acute cor pulmonale (principal); Z51.81 Encounter for therapeutic drug level monitoring; Z79.01 Long term (current) use of anticoagulants | CPT/HCPCS: 85610; 99211 ==